=== PATIENT | female | born 1975 | race Two or more races ===

== ENCOUNTER 2016-10-10 13:02 | Inpatient (IN) | payer MEDICAID ==
[2016-10-10 13:16] VITALS: BP 144/74
[2016-10-10 13:47] LABS: % BASOPHILS 0.4 % (0.0-2.0); % EOSINOPHILS 2.2 % (0.0-5.0); % LYMPHOCYTES 32.8 % (20.0-50.0); % MONOCYTES 6.9 % (2.0-10.0); % NEUTROPHILS 57.7 % (40.0-80.0); HEMATOCRIT 36.1 % (35.0-45.0); HEMOGLOBIN 12.4 gm/dL (11.7-15.5); MEAN CELL VOLUME 80.9 fl (81-100); MEAN CORPUSCULAR HEMOGLOBIN 27.7 pg (27.0-31.0); MEAN CORPUSCULAR HGB CONC 34.3 pg (28.0-36.0); MEAN PLATELET VOLUME 7.7 fl; NEUTROPHILE ABSOLUTE 5.5 Th/cmm (1.8-8.0); PLATELET COUNT 298 Th/cmm (150-400); RED BLOOD COUNT 4.46 Mil/cmm (3.80-5.10); RED CELL DISTRIBUTION WIDTH 13.9 % (11.5-20.0); WHITE BLOOD COUNT 9.5 Th/cmm (4.8-10.8)
[2016-10-10] MEDS ORDERED: ceFAZolin 2 GM in Sodium Chloride 0.9% 100 ML IV ONE (13:48)
--- NOTE | 2016-10-10 13:54 | ED Physician Chart ---
Chief Complaint/HPI - Patient Information Date Seen:: 10/10/16 Time Seen:: 13:49 Chief Complaint:: infection left groin area x 4 days. History of Present Illness:: infection at left groin x 4 d. saw her pmd saturday and started on keflex but it looks worse today per pmd. no known fever. pt has DM. no weakness. no leg/foot pain or edema. no cp. no sob. no cough. Allergies:: Allergies Allergy/AdvReac Type Severity Reaction Status Date / Time No Known Allergies Allergy Verified 03/18/16 08:09 Vitals:: Vital Signs - 8 hr 10/10/16 10/10/16 13:16 13:21 Temp 98.0 F HR 85 RR 17 BP 144/74 144/74 O2 Sat % 96 Historian:: Patient Review of Systems - Review of Systems General/Constitutional: No fever, No chills, No weight loss (obese), No weakness , No diaphoresis, No edema, No loss of appetite Skin: Skin lesions, Rash, No bruising Head: No headache, No light-headedness Eyes: No loss of vision, No pain, No diplopia ENT: No earache, No nasal drainage, No sore throat, No tinnitus Neck: No neck pain, No swelling, No thyromegaly, No stiffness, No mass noted Cardio Vascular: No chest pain, No palpitations, No PND, No orthopnea, No edema Pulmonary: No SOB, No cough, No sputum, No wheezing GI: No nausea, No vomiting, No diarrhea, No pain, No melena, No hematochezia, No constipation, No hematemesis G/U: No dysuria, No frequency, No hematuria Musculoskeletal: No bone or joint pain, No back pain, No muscle pain Endocrine: No polyuria, No polydipsia Psychiatric: No prior psych history, No depression, No anxiety, No suicidal ideation Hematopoietic: No bruising, No lymphadenopathy Allergic/Immuno: No urticaria, No angioedema Neurological: No syncope, No focal symptoms, No weakness, No paresthesia, No headache, No seizure, No dizziness, No confusion, No vertigo Past Medical History - Past Medical History Past Medical History: DM, Dyslipidemia, Other (obese) Social History: Non Smoker, No Alcohol, No Drug Use Medication: Reviewed Family Medical History - Family Member Mother History Unknown: Yes Ethnicity: Living Status: Hx Family Diabetes: Yes Physical Exam - Physical Examination General/Constitutional: Awake, Well-developed, well-nourished, Alert, No distress, GCS 15, Non-toxic appearing, Ambulatory Other Gen/Cons comments:: obese fem in nad. alert. nontoxic. there is a red warm area of cellulitis 5x6cm sz at left lateral region of Pannus ...it has a central sinus and has apparently been draining...there is no obvious deep palpable abscess at this time however clearly has cellulitic process. Head: Atraumatic Eyes: Lids, conjuctiva normal, PERRL, EOMI Skin: Nl inspection, No rash, No skin lesions, No ecchymosis, Well hydrated, No lymphadenopathy ENMT: External ears, nose nl, Nasal exam nl, Lips, teeth, gums nl Neck: Nontender, Full ROM w/o pain, No JVD, No nuchal rigidity, No bruit, No mass, No stridor Respiratory: Nl effort/Exclusion, Clear to Auscultation, No Wheeze/Rhonchi/Rales Cardio Vascular: RRR, No murmur, gallop, rubs, NL S1 S2 GI: No tenderness/rebounding/guarding, No organomegaly, No hernia, Normal BS's, Nondistended, No mass/bruits, No McBurney tenderness : No CVA tenderness Extremities: No tenderness or effusion, Full ROM, normal strength in all extremities, No edema, Normal digits & nails Neuro/Psych: Alert/oriented, DTR's symmetric, Normal sensory exam, Normal motor strength, Judgement/insight normal, Mood normal, Normal gait, No focal deficits Misc: normal gait, Normal back, No paraspinal tenderness Labs/Radiology/EKG Results - Lab Results Results: Laboratory Tests 10/10/16 13:38 WBC 9.5 D RBC 4.46 Hgb 12.4 Hct 36.1 MCV 80.9 L MCH 27.7 MCHC Differential 34.3 RDW 13.9 Plt Count 298 MPV 7.7 Neutrophils % 57.7 Lymphocytes % 32.8 Monocytes % 6.9 Eosinophils % 2.2 Basophils % 0.4 ED Septic Shock - . Is Septic Shock (SBP<90, OR Lactate>4 mmol\L) present?: No - <6hrs of presentation: Vital Signs: Vital Signs - 8 hr 10/10/16 10/10/16 13:16 13:21 Temp 98.0 F HR 85 RR 17 BP 144/74 144/74 O2 Sat % 96 Reassessment (Disposition) - Reassessment Reassessment:: case dw Dr Gonzales...will admit for cellulitis in DM obese pt w worsening despite outpt abx pt has been stable in ed. vss. no fever. Reassessment Condition:: Unchanged - Diagnosis Diagnosis:: 1 cellulitis left panus region s/p outpt tx failure on po abx 2 type 2 DM 3 obese - Aftercare/Follow up Instructions Aftercare/Follow-Up Instructions:: Counseled pt regarding lab results/diagnosis & need follow up - Patient Disposition Admitted to:: Med/Surg Condition at Disposition:: Improved
[2016-10-10 14:03] LABS: ALB/GLOB RATIO 1.2 (1.0-1.8); ALKALINE PHOSPHATASE 73 U/L (34-104); ANION GAP 8.7 (7.0-16.0); BILIRUBIN,TOTAL 0.3 mg/dL (0.3-1.0); BUN - UREA NITROGEN 13 mg/dL (7-25); BUN/CREATININE RATIO 16.3; CALCIUM SERUM 9.1 mg/dL (8.6-10.3); CARBON DIOXIDE 26.1 mEq/L (21.0-31.0); CHLORIDE 106 mEq/L (98-107); CREATININE - SERUM 0.8 mg/dL (0.6-1.2); GLUCOSE 93 mg/dL (70-105); POTASSIUM SERUM 3.8 mEq/L (3.5-5.1); SGOT 22 U/L (13-39); SGPT/ALT 22 U/L (7-52); SODIUM SERUM 137 mEq/L (136-145)
[2016-10-10] MEDS ORDERED: Hydrocodone/APAP 5mg/325mg Tab PO PRN (17:37)
[2016-10-10] MEDS: INSULIN ASPART SLIDING SCALE 100 UNITS/ML UNIT SUBQ SCH ×2 (18:27→20:59)
[2016-10-10] MEDS: Hydrocodone/APAP 5mg/325mg Tab PO PRN (20:34)
--- NOTE | 2016-10-10 21:41 | Admit Criteria Form ---
Admit Criteria Forms - Admit Criteria Diagnosis: CELLULITIS Clinical Indications for Admission to Inpatient Care (Place 'X' for any and all applicable criteria): Admission is indicated for ANY ONE of the following(1)(2)(3)(4)(5): [ ]I. Limb-threatening infection [ ]II. High-risk comorbid condition as indicated by ANY ONE of the following: [ ]a) Uncontrolled diabetes (eg, HbA1c greater than 10% (0.1)) [ ]b) Cirrhosis [ ]c) Neutropenia [ ]d) Asplenia [ ]e) Immunosuppression [ ]f) Symptomatic heart failure [ ]III. Failure of outpatient therapy as indicated by ALL of the following: [ ]a) Progression or no improvement after adequate trial (minimum of 48 hours, with longer period for stable lower extremity infection) [ ]b) Adequate antibiotic regimen as indicated by use of ANY ONE of the following: [ ]i) First-generation cephalosporin (e.g., cephalexin) [ ]ii) Antistaphylococcal penicillin (e.g., dicloxacillin) [ ]iii) Penicillin-allergic patient regimen (clindamycin, extended-spectrum fluoroquinolone, or doxycycline) [ ]iv) Resistant organism (eg, methicillin-resistant Staphylococcus aureus) regimen (6) [ ]c) Outpatient intravenous therapy regimen is not appropriate due to ANY ONE of the following. (7)(8)(9)(10): [ ]i) It was tried and was not successful (eg, progression of infection). [ ]ii) It is not available or cannot be arranged in a clinically appropriate time frame (e.g., the next day). [ ]iii) Clinical presentation (eg, acuity of infection, rapidity of progression, confirmed or suspected bacteremia) is judged to require ALL of the following: [ ]1) Immediate initiation of intravenous therapy ( eg, cannot wait for next day) [ ]2) Intensity of patient monitoring and observation (eg, vital sign measurement, checks for infection progression) that cannot be provided at other than inpatient level of care [ ]IV. Mental status changes [ ]V. Bacteremia [ ]. Hemodynamic instability [ ]VII. Suspected necrotizing soft tissue infection (e.g., gas in tissue)(11)( 12) [ ]VIII. Orbital infection (13)(14) [ ]IX. Associated surgical procedure (e.g., abscess drainage, debridement) not amenable to outpatient, emergency department, or observation care [ ]X. Cutaneous gangrene [ ]XI. High fever (temperature greater than 39.5 degrees C (103.1 degrees F) (oral)) not responsive to outpatient, emergency department, or observation care therapy [X]XIII. Inpatient admission required rather than observation care (Also use Cellulitis: Observation Care as appropriate) because of ANY ONE of the following : [ ]a) Periorbital or perineal infection that is severe or worsening [ ]b) Severe pain requiring acute inpatient management [ ]c) IV fluid to replace significant ongoing (e.g., for over 24 hours) losses (greater than 3L/m2 per day) [ ]d) Compartment syndrome monitoring (17) [ ]e) Strict or protective (eg, laminar flow) isolation [ ]f) Urgent debridement or skin grafting [ ]g) Bone or joint debridement [ ]h) Immediate inpatient surgery [X]i) Other condition, treatment or monitoring requiring inpatient admission Extended stay beyond goal length of stay may be needed for (1)(18): [ ]a) Necrotizing soft tissue infection or fasciitis [ ]b) Gram-negative infection [ ]c) Methicillin-resistant Staphylococcal aureus (MRSA) infection [ ]d) Peripheral venous insufficiency with cellulitis [ ]e) Extensive edema [ ]f) Sepsis or continued Hemodynamic instability [ ]g) Continued high fever or mental status change [ ]h) Bacteremia [ ]i) Active serious comorbid conditions ( eg, heart failure, renal insufficiency) The original [facility] [employer] content created by [employer] [employer] has been revised. The portions of the content which have been revised are identified through the use of italic text or in bold, and [facility] has neither reviewed nor approved the modified material. All other unmodified content is copyright [employer] [employer] Please see references footnoted in the original [employer] [facility] edition 2016 Admit Criteria Met?: Yes
[2016-10-10] MEDS: Vancomycin HCl 1.75 GM in Sodium Chloride 0.9% 500 ML IV SCH (22:14)
--- NOTE | 2016-10-10 23:59 | Consultation ---
Consult Note - Consult Note Service Date: 10/10/16 Referring Physician: Glenn Gonzales Consult Note: PHYSICIAN Consultation Note: Date of Admission: 10/10/16 Purpose of Consultation: Chief Complaint:Patient SHLOMO ALVARADO was admitted to location Medical/ Surgical Unit I with CELLULITIS. History of Present Illness: Patient is 41 Y morbidly obese female admitted to the hospital for tender swelling and redness of the lower abdomen with superficial ulceration. Patient denies any fever, chills. On initial evaluation, her temperature was 98 degree F and WBC count was 9,500. Zosyn was started and had added IV vancomycin. Past Medical History: DM2, Hyperlipidemia, morbid obesity. Allergies Allergy/AdvReac Type Severity Reaction Status Date / Time No Known Allergies Allergy Verified 03/18/16 08:09 Vital Signs Temp 98.6 F 10/10/16 20:00 Pulse 83 10/10/16 20:00 Resp 18 10/10/16 20:00 BP 128/68 10/10/16 20:00 Pulse Ox 94 10/10/16 20:00 Intake & Output 10/10/16 10/10/16 10/11/16 06:59 18:59 06:59 Intake Total 500 Balance 500 Intake: Oral 500 Other: # Voids 1 Stool Characteristics Soft Laboratory Results - last 24 hr 10/10/16 16:50 POC Glucose 105 Home Medication Medication Instructions Recorded Type Ranitidine HCl [Ranitidine*] 150 mg PO Q12H #30 tab 03/18/16 Rx Current Medications Generic Name Dose Route Start Last Admin Trade Name Freq PRN Reason Stop Dose Admin Acetaminophen 650 mg 10/10/16 17:35 Tylenol PO 12/09/16 17:34 Q6H PRN Pain (Mild) Acetaminophen/Hydrocodone Bitart 1 tab 10/10/16 17:38 10/10/16 20:34 [place] 5mg/325mg PO 12/09/16 17:37 1 tab Q6H PRN Administration Pain (Moderate) Famotidine 20 mg 10/10/16 21:00 10/10/16 20:35 Pepcid PO 12/09/16 20:59 20 mg Q12HR LUTHER Administration Piperacillin Sod/Tazobactam 100 mls @ 100 mls/hr 10/10/16 21:00 10/10/16 20: 59 Sod 4.5 gm/ Sodium Chloride IV 12/09/16 20:59 100 mls/hr Q8HR LUTHER Administration Vancomycin HCl 1.75 gm/ Sodium 500 mls @ 250 mls/hr 10/10/16 20:00 10/10/16 22:14 Chloride IV 12/09/16 19:59 250 mls/hr Q12H LUTHER Administration Insulin Aspart 0 units 10/10/16 16:32 10/10/16 20:59 Novolog Insulin Sliding Scale SUBQ 12/09/16 16:31 Not Given ACHS LUTHER Protocol Miscellaneous 1 ea 10/10/16 18:25 Vancomycin Iv Per Pharmacy [facility] 12/09/16 18:24 PRN PRN PROTOCOL Review of Systems: A 12 point ROS was reviewed with the pertinent positive and negatives noted in the HPI. Social History Lives at home Smoking Status Never smoker Drug Use No Alcohol Use No Family Medical History Nonsignificant. Physical Exam: General: Obese, not in any acute distress. HEENT: EOMI Bilaterally, PERRLA Bilaterally, Head is normocephalic, atraumatic on inspection. Cardio: +S1/S2 Auscultated, RRR, no murmurs/rubs/gallops noted Respiratory: Clear to Auscultate Bilaterally Abdominal: Soft, Nondistended, Nontender to palpation x 4 quadrants. Patient is very obese and had developed tender erythema of the fatty abdominal fold of the LLQ with superficial ulceration. Extremities: No Edema noted in the lower extremities Neurological: Alert and Oriented x3, No Acute Distress. Cranial Nerves II-XII intact bilaterally, Gait Steady, No Focal Deficits noted. Assessment/Plan: 1. cellulitis of the abdominal wall of LLQ. panniculitis. 2. morbid obesity. 3. suspect EMELI. 4. Tinea cruris. Recommendations: Start Vando IV and zosyn. may apply lotrisone cream to the abdominal fold, she may have tinea cruris. may anticipate dc in next 2 to 3 days depending on the clinical course. Thank you Dr Gonazles for involving me in taking care of Ms Alvarado. Kameron Ayers Devesh N., M.D. [id number]
[2016-10-11] MEDS: Hydrocodone/APAP 5mg/325mg Tab PO PRN ×2 (03:09→13:32)
[2016-10-11 05:32] LABS: % BASOPHILS 0.5 % (0.0-2.0); % EOSINOPHILS 2.5 % (0.0-5.0); % LYMPHOCYTES 37.1 % (20.0-50.0); % MONOCYTES 7.3 % (2.0-10.0); % NEUTROPHILS 52.6 % (40.0-80.0); HEMATOCRIT 34.2 % (35.0-45.0); HEMOGLOBIN 11.9 gm/dL (11.7-15.5); MEAN CELL VOLUME 80.7 fl (81-100); MEAN CORPUSCULAR HGB CONC 34.7 pg (28.0-36.0); MEAN PLATELET VOLUME 7.5 fl; PLATELET COUNT 287 Th/cmm (150-400); RED BLOOD COUNT 4.23 Mil/cmm (3.80-5.10); RED CELL DISTRIBUTION WIDTH 13.9 % (11.5-20.0)
[2016-10-11 05:42] LABS: WHITE BLOOD COUNT 7.5 Th/cmm (4.8-10.8)
[2016-10-11 05:43] LABS: BUN - UREA NITROGEN 15 mg/dL (7-25); CARBON DIOXIDE 25.8 mEq/L (21.0-31.0); CHLORIDE 105 mEq/L (98-107); CREATININE - SERUM 0.5 mg/dL (0.6-1.2); GLUCOSE 118 mg/dL (70-105); POTASSIUM SERUM 3.8 mEq/L (3.5-5.1); SODIUM SERUM 136 mEq/L (136-145)
[2016-10-11] MEDS: INSULIN ASPART SLIDING SCALE 100 UNITS/ML UNIT SUBQ SCH ×4 (06:50→21:05)
[2016-10-11] MEDS: Vancomycin HCl 1.75 GM in Sodium Chloride 0.9% 500 ML IV SCH ×2 (08:40→21:05)
--- NOTE | 2016-10-11 15:10 | Infectious Disease Prog Note ---
Infectious Disease Subjective - Review of Systems Service Date: 10/11/16 Subjective: Nonew change, there is no fever. Infectious Disease Objective - Results Result Diagrams: 10/11/16 05:15 10/11/16 05:15 Recent Labs: Laboratory Last Values WBC 7.5 Th/cmm (4.8-10.8) D 10/11/16 05:15 RBC 4.23 Mil/cmm (3.80-5.10) 10/11/16 05:15 Hgb 11.9 gm/dL (11.7-15.5) 10/11/16 05:15 Hct 34.2 % (35.0-45.0) L 10/11/16 05:15 MCV 80.7 fl (81-100) L 10/11/16 05:15 MCH 28.0 pg (27.0-31.0) 10/11/16 05:15 MCHC Differential 34.7 pg (28.0-36.0) 10/11/16 05:15 RDW 13.9 % (11.5-20.0) 10/11/16 05:15 Plt Count 287 Th/cmm (150-400) 10/11/16 05:15 MPV 7.5 fl 10/11/16 05:15 Neutrophils % 52.6 % (40.0-80.0) 10/11/16 05:15 Lymphocytes % 37.1 % (20.0-50.0) 10/11/16 05:15 Monocytes % 7.3 % (2.0-10.0) 10/11/16 05:15 Eosinophils % 2.5 % (0.0-5.0) 10/11/16 05:15 Basophils % 0.5 % (0.0-2.0) 10/11/16 05:15 Sodium 136 mEq/L (136-145) 10/11/16 05:15 Potassium 3.8 mEq/L (3.5-5.1) 10/11/16 05:15 Chloride 105 mEq/L (98-107) 10/11/16 05:15 Carbon Dioxide 25.8 mEq/L (21.0-31.0) 10/11/16 05:15 Anion Gap 9.0 (7.0-16.0) 10/11/16 05:15 BUN 15 mg/dL (7-25) 10/11/16 05:15 Creatinine 0.5 mg/dL (0.6-1.2) L 10/11/16 05:15 Est GFR ( Amer) > 60.0 ml/min (>90) 10/11/16 05:15 Est GFR (Non-Af Amer) > 60.0 ml/min 10/11/16 05:15 BUN/Creatinine Ratio 30.0 10/11/16 05:15 Glucose 118 mg/dL (70-105) H 10/11/16 05:15 POC Glucose 136 MG/DL (70 - 105) H 10/11/16 11:26 Hemoglobin A1c % 6.3 % (4.0-6.0) H 10/10/16 14:10 Whole Bld Lactic Acid 0.97 mmol/L (0.60-1.99) 10/10/16 14:10 Calcium 9.0 mg/dL (8.6-10.3) 10/11/16 05:15 Total Bilirubin 0.3 mg/dL (0.3-1.0) 10/10/16 13:38 AST 22 U/L (13-39) 10/10/16 13:38 ALT 22 U/L (7-52) 10/10/16 13:38 Alkaline Phosphatase 73 U/L (34-104) 10/10/16 13:38 Total Protein 7.2 gm/dL (6.0-8.3) 10/10/16 13:38 Albumin 3.9 gm/dL (3.7-5.3) 10/10/16 13:38 Globulin 3.3 gm/dL 10/10/16 13:38 Albumin/Globulin Ratio 1.2 (1.0-1.8) 10/10/16 13:38 - Physical Exam Vitals and I&O: Vital Signs Temp 98.4 F 10/11/16 08:00 Pulse 73 10/11/16 08:00 Resp 18 10/11/16 08:00 BP 139/69 10/11/16 08:00 Pulse Ox 94 10/11/16 08:00 Intake & Output 10/10/16 10/11/16 10/11/16 18:59 06:59 18:59 Intake Total 500 700 200 Balance 500 700 200 Intake: Intake, IV Amount 700 Piperacillin Sodium/ 200 Tazobact 4.5 gm In Sodium Chloride 0.9% 100 ml @ 100 mls/hr IV Q8HR [facility] Rx #:[id number] Vancomycin HCl 1.75 gm In 500 Sodium Chloride 0.9% 500 ml @ 250 mls/hr IV Q12H [facility] Rx#:[id number] Oral 500 200 Other: # Voids 1 Stool Characteristics Soft Active Medications: Current Medications Acetaminophen (Tylenol) 650 mg PO Q6H PRN PRN Reason: Pain (Mild) Stop: 12/09/16 17:34 Last Admin: 10/11/16 06:57 Dose: 650 mg Acetaminophen/Hydrocodone Bitart ([place] 5mg/325mg) 1 tab PO Q6H PRN PRN Reason: Pain (Moderate) Stop: 12/09/16 17:37 Last Admin: 10/11/16 13:32 Dose: 1 tab Betamethasone/Clotrimazole (Lotrisone Cream) 1 appl TP BID [facility] Stop: 12/10/16 08:59 Famotidine (Pepcid) 20 mg PO Q12HR [facility] Stop: 12/09/16 20:59 Last Admin: 10/11/16 09:07 Dose: 20 mg Piperacillin Sod/Tazobactam (Sod 4.5 gm/ Sodium Chloride) 100 mls @ 100 mls/hr IV Q8HR [facility] Stop: 12/09/16 20:59 Last Admin: 10/11/16 12:38 Dose: 100 mls/hr Vancomycin HCl 1.75 gm/ Sodium (Chloride) 500 mls @ 250 mls/hr IV Q12H [facility] Stop: 12/09/16 19:59 Last Admin: 10/11/16 08:40 Dose: 250 mls/hr Insulin Aspart (Novolog Insulin Sliding Scale) 0 units SUBQ ACHS [facility] PRN Reason: Protocol Stop: 12/09/16 16:31 Last Admin: 10/11/16 11:42 Dose: Not Given Miscellaneous (Vancomycin Iv Per Pharmacy) 1 ea [facility] PRN PRN PRN Reason: PROTOCOL Stop: 12/09/16 18:24 General: no acute distress, other (obese) HEENT: atraumatic, normocephalic, PERRLA Neck: supple Cardiovascular: S1S2, regular Lungs: clear to auscultation bilaterally, clear to percussion Abdomen: soft, obese, other (erythema in LLQ, inlower abdomina fold.), no tender Extremities: no cyanosis, no clubbing, no edema Neurological: awake, alert, oriented Infectious Disease Assmt/Plan - Problem List Patient Problems: All Active Problems Bronchitis (Acute) J40 - Assessment Assessment: 1. cellulitis of the abdominal wall of LLQ. panniculitis. 2. morbid obesity. 3. suspect EMELI. 4. Tinea cruris. - Plan Plan: Recommendations: Conitnue Vando IV and zosyn. may apply lotrisone cream to the abdominal fold, she may have tinea cruris. may anticipate dc in next 1 or 2 days. on oral antibiotics. HH for wound care. Nutritional Asmnt/Malnutr-PDOC - Dietary Evaluation Malnutrition Findings (Please click <Entered> for more info): Nutritional Asmnt/Malnutrition Start: 10/11/16 12: 12 Text: Status: Complete Freq: Document 10/11/16 12:12 GSUN (Rec: 10/11/16 12:28 GSUN [email or web address]) Nutritional Asmnt/Malnutrition Patient General Information Nutritional Screening Consult Diagnosis ER: cellulitis left panus region, DM2 Pertinent Medical Hx/Surgical Hx ER: DM, dyslipidemia, obese Subjective Information [address] consult for active wound cellulitis. Pt was very pleasat, sitting upright in chair next to bed. [place] speaking, son translated, who also appeared overweight/obese. Pt appeared either unaware or in denial of elevated blood glucose/DM. UBW 330lb. Pt stated good appetite, denied any nutritional concerns at this time. Current Diet Order/ Nutrition Support [address] Patient / S.O Can Pertinent Medications Pepcid, Novolog, Vancomycin Pertinent Labs 10/10: A1c 6.3, glucose 93 10/11: glucose 118H Nutritional Hx/Data Height 1.57 m Height (Calculated Centimeters) 157.5 Current Weight (lbs) 145.15 kg Weight (Calculated Kilograms) 145.1 Weight (Calculated Grams) 383483.6 Usual body Weight (lbs) 330 [place] Body Weight 110 Recent Weight Change No Weight Status Morbidly Obese GI Symptoms Food Allergies No Skin Integrity/Comment: Carl 20. Panus region cellulitis. Current %PO Good (75-100%) Estimated Nutritional Goals BEE in Kcals: Adj wt of IBW Calories/Kcals/Kg AdjBW 162.5/73.9kg Kcals Calculated 1848-2217kcal (25-30kcal/kg) Protein: Adj wt of IBW Protein Calculated 59g (0.8g/kg) Fluid: ml 1848-2217ml (1ml/kcal) Nutritional Problem 1. Problem Problem Altered nutrition related laboratory values related to Etiology DM aeb Signs/Symptoms: A1c 6.3, ER notes Malnutrition Related to Morbid Obesity Malnutrition related to morbid obesity BMI> or equal to 40 Query Text:(Any 1 Criteria met) Malnutrition related to morbid obesity Yes Intervention/Recommendation Recommendations by RD Dietary Education by RD1 Increase Calorie Intake Decrease Calorie Intake Comments 1. Recommend [id number], current diet order [id number] is not adequate to meet 100% of estimated nutritional needs, calculated using adjusted body weight. 2. RD provided brief nutrition edu on DM. Pt requires more edu. Pt expressed udnerstanding. 3. RD discussed ideal body weight and complications with obesity. Pt expressed udnerstanding. Expected Outcomes/Goals Expected Outcomes/Goals 1. PO intake to meet at least 75% of estimated nutritional needs. Physician Parameters for PEM Serum Albumin (g/dl) 3.5 - 5.0 (Normal)
[2016-10-11] MEDS: Betamethasone/Clotrimazole Cream 15 gm Tube TP SCH (17:35)
[2016-10-11] MEDS ORDERED: Maalox 30 mL Cup PO PRN (22:25)
[2016-10-12] MEDS: Hydrocodone/APAP 5mg/325mg Tab PO PRN (03:56)
[2016-10-12] MEDS: INSULIN ASPART SLIDING SCALE 100 UNITS/ML UNIT SUBQ SCH ×2 (06:42→11:39)
[2016-10-12] MEDS: Vancomycin HCl 1.75 GM in Sodium Chloride 0.9% 500 ML IV SCH (08:15)
[2016-10-12] MEDS: Betamethasone/Clotrimazole Cream 15 gm Tube TP SCH (08:48)
--- NOTE | 2016-10-12 10:12 | Infectious Disease Prog Note ---
Infectious Disease Subjective - Review of Systems Service Date: 10/12/16 Subjective: Nonew change, there is no fever. Infectious Disease Objective - Results Result Diagrams: 10/11/16 05:15 10/11/16 05:15 Recent Labs: Laboratory Last Values WBC 7.5 Th/cmm (4.8-10.8) D 10/11/16 05:15 RBC 4.23 Mil/cmm (3.80-5.10) 10/11/16 05:15 Hgb 11.9 gm/dL (11.7-15.5) 10/11/16 05:15 Hct 34.2 % (35.0-45.0) L 10/11/16 05:15 MCV 80.7 fl (81-100) L 10/11/16 05:15 MCH 28.0 pg (27.0-31.0) 10/11/16 05:15 MCHC Differential 34.7 pg (28.0-36.0) 10/11/16 05:15 RDW 13.9 % (11.5-20.0) 10/11/16 05:15 Plt Count 287 Th/cmm (150-400) 10/11/16 05:15 MPV 7.5 fl 10/11/16 05:15 Neutrophils % 52.6 % (40.0-80.0) 10/11/16 05:15 Lymphocytes % 37.1 % (20.0-50.0) 10/11/16 05:15 Monocytes % 7.3 % (2.0-10.0) 10/11/16 05:15 Eosinophils % 2.5 % (0.0-5.0) 10/11/16 05:15 Basophils % 0.5 % (0.0-2.0) 10/11/16 05:15 Sodium 136 mEq/L (136-145) 10/11/16 05:15 Potassium 3.8 mEq/L (3.5-5.1) 10/11/16 05:15 Chloride 105 mEq/L (98-107) 10/11/16 05:15 Carbon Dioxide 25.8 mEq/L (21.0-31.0) 10/11/16 05:15 Anion Gap 9.0 (7.0-16.0) 10/11/16 05:15 BUN 15 mg/dL (7-25) 10/11/16 05:15 Creatinine 0.5 mg/dL (0.6-1.2) L 10/11/16 05:15 Est GFR ( Amer) > 60.0 ml/min (>90) 10/11/16 05:15 Est GFR (Non-Af Amer) > 60.0 ml/min 10/11/16 05:15 BUN/Creatinine Ratio 30.0 10/11/16 05:15 Glucose 118 mg/dL (70-105) H 10/11/16 05:15 POC Glucose 126 MG/DL (70 - 105) H 10/12/16 06:35 Hemoglobin A1c % 6.3 % (4.0-6.0) H 10/10/16 14:10 Whole Bld Lactic Acid 0.97 mmol/L (0.60-1.99) 10/10/16 14:10 Calcium 9.0 mg/dL (8.6-10.3) 10/11/16 05:15 Total Bilirubin 0.3 mg/dL (0.3-1.0) 10/10/16 13:38 AST 22 U/L (13-39) 10/10/16 13:38 ALT 22 U/L (7-52) 10/10/16 13:38 Alkaline Phosphatase 73 U/L (34-104) 10/10/16 13:38 Total Protein 7.2 gm/dL (6.0-8.3) 10/10/16 13:38 Albumin 3.9 gm/dL (3.7-5.3) 10/10/16 13:38 Globulin 3.3 gm/dL 10/10/16 13:38 Albumin/Globulin Ratio 1.2 (1.0-1.8) 10/10/16 13:38 - Physical Exam Vitals and I&O: Vital Signs Temp 97.7 F 10/12/16 04:00 Pulse 77 10/12/16 04:00 Resp 20 10/12/16 04:00 BP 133/95 10/12/16 04:00 Pulse Ox 95 10/12/16 04:00 Intake & Output 10/11/16 10/12/16 10/12/16 18:59 06:59 18:59 Intake Total 1160 840 Balance 1160 840 Intake: Intake, IV Amount 600 600 Piperacillin Sodium/ 100 100 Tazobact 4.5 gm In Sodium Chloride 0.9% 100 ml @ 100 mls/hr IV Q8HR [facility] Rx #:[id number] Vancomycin HCl 1.75 gm In 500 500 Sodium Chloride 0.9% 500 ml @ 250 mls/hr IV Q12H [facility] Rx#:[id number] Oral 560 240 Other: # Voids 4 1 # Bowel Movements 1 Stool Characteristics Liquid Brown Active Medications: Current Medications Acetaminophen (Tylenol) 650 mg PO Q6H PRN PRN Reason: Pain (Mild) Stop: 12/09/16 17:34 Last Admin: 10/11/16 21:56 Dose: 650 mg Acetaminophen/Hydrocodone Bitart (Sturgeon 5mg/325mg) 1 tab PO Q6H PRN PRN Reason: Pain (Moderate) Stop: 12/09/16 17:37 Last Admin: 10/12/16 03:56 Dose: 1 tab Al Hydrox/Mg Hydrox/Simethicone (Maalox) 30 ml PO TID PRN PRN Reason: GAS PAIN Stop: 12/10/16 22:24 Betamethasone/Clotrimazole (Lotrisone Cream) 1 appl TP BID [facility] Stop: 12/10/16 08:59 Last Admin: 10/12/16 08:48 Dose: 1 appl Famotidine (Pepcid) 20 mg PO Q12HR [facility] Stop: 12/09/16 20:59 Last Admin: 10/12/16 08:48 Dose: 20 mg Piperacillin Sod/Tazobactam (Sod 4.5 gm/ Sodium Chloride) 100 mls @ 100 mls/hr IV Q8HR [facility] Stop: 12/09/16 20:59 Last Admin: 10/12/16 06:03 Dose: 100 mls/hr Vancomycin HCl 1.75 gm/ Sodium (Chloride) 500 mls @ 250 mls/hr IV Q12H [facility] Stop: 12/09/16 19:59 Last Admin: 10/12/16 08:15 Dose: 250 mls/hr Insulin Aspart (Novolog Insulin Sliding Scale) 0 units SUBQ ACHS [facility] PRN Reason: Protocol Stop: 12/09/16 16:31 Last Admin: 10/12/16 06:42 Dose: Not Given Miscellaneous (Vancomycin Iv Per Pharmacy) 1 ea MC PRN PRN PRN Reason: PROTOCOL Stop: 12/09/16 18:24 General: no acute distress, other (Obese.) HEENT: atraumatic, normocephalic, PERRLA, EOMI Neck: supple, no thyromegaly, no lymphadenopathy Cardiovascular: S1S2, regular Lungs: clear to auscultation bilaterally, clear to percussion Abdomen: soft, other (wound and erythema in the LLQ Improving.), no tender, no distended Extremities: no cyanosis, no clubbing, no edema Neurological: awake, alert, oriented Skin: intact Infectious Disease Assmt/Plan - Problem List Patient Problems: All Active Problems Bronchitis (Acute) J40 - Assessment Assessment: 1. cellulitis of the abdominal wall of LLQ. panniculitis. Improving. 2. morbid obesity. 3. suspect EMELI. 4. Tinea cruris. - Plan Plan: Recommendations: Continue Vando IV and zosyn. may apply lotrisone cream to the abdominal fold, she may have tinea cruris. DC on oral antibiotics, Bactrim ds and Augmentin. ?HH for wound care. Nutritional Asmnt/Malnutr-PDOC - Dietary Evaluation Malnutrition Findings (Please click <Entered> for more info): Nutritional Asmnt/Malnutrition Start: 10/11/16 12: 12 Text: Status: Complete Freq: Document 10/11/16 12:12 GSUN (Rec: 10/11/16 12:28 GSUN [email or web address]) Nutritional Asmnt/Malnutrition Patient General Information Nutritional Screening Consult Diagnosis ER: cellulitis left panus region, DM2 Pertinent Medical Hx/Surgical Hx ER: DM, dyslipidemia, obese Subjective Information [address] consult for active wound cellulitis. Pt was very pleasat, sitting upright in chair next to bed. Faroese speaking, son translated, who also appeared overweight/obese. Pt appeared either unaware or in denial of elevated blood glucose/DM. UBW 330lb. Pt stated good appetite, denied any nutritional concerns at this time. Current Diet Order/ Nutrition Support [id number] Patient / S.O Can Pertinent Medications Pepcid, Novolog, Vancomycin Pertinent Labs 10/10: A1c 6.3, glucose 93 10/11: glucose 118H Nutritional Hx/Data Height 1.57 m Height (Calculated Centimeters) 157.5 Current Weight (lbs) 145.15 kg Weight (Calculated Kilograms) 145.1 Weight (Calculated Grams) 321979.6 Usual body Weight (lbs) 330 [place] Body Weight 110 Recent Weight Change No Weight Status Morbidly Obese GI Symptoms Food Allergies No Skin Integrity/Comment: Carl 20. Panus region cellulitis. Current %PO Good (75-100%) Estimated Nutritional Goals BEE in Kcals: Adj wt of IBW Calories/Kcals/Kg AdjBW 162.5/73.9kg Kcals Calculated 1848-2217kcal (25-30kcal/kg) Protein: Adj wt of IBW Protein Calculated 59g (0.8g/kg) Fluid: ml 1848-2217ml (1ml/kcal) Nutritional Problem 1. Problem Problem Altered nutrition related laboratory values related to Etiology DM aeb Signs/Symptoms: A1c 6.3, ER notes Malnutrition Related to Morbid Obesity Malnutrition related to morbid obesity BMI> or equal to 40 Query Text:(Any 1 Criteria met) Malnutrition related to morbid obesity Yes Intervention/Recommendation Recommendations by RD Dietary Education by RD1 Increase Calorie Intake Decrease Calorie Intake Comments 1. Recommend [id number], current diet order [id number] is not adequate to meet 100% of estimated nutritional needs, calculated using adjusted body weight. 2. RD provided brief nutrition edu on DM. Pt requires more edu. Pt expressed udnerstanding. 3. RD discussed ideal body weight and complications with obesity. Pt expressed udnerstanding. Expected Outcomes/Goals Expected Outcomes/Goals 1. PO intake to meet at least 75% of estimated nutritional needs. Physician Parameters for PEM Serum Albumin (g/dl) 3.5 - 5.0 (Normal)
--- NOTE | 2016-10-12 18:19 | General Progress Note ---
Subjective - Review of Systems Service Date: 10/12/16 Subjective: Patient doing better family was at the bedside afebrile denied any complaints Luxembourger interpretor was used for communication Objective - Results Result Diagrams: 10/11/16 05:15 10/11/16 05:15 Recent Labs: Laboratory Last Values WBC 7.5 Th/cmm (4.8-10.8) D 10/11/16 05:15 RBC 4.23 Mil/cmm (3.80-5.10) 10/11/16 05:15 Hgb 11.9 gm/dL (11.7-15.5) 10/11/16 05:15 Hct 34.2 % (35.0-45.0) L 10/11/16 05:15 MCV 80.7 fl (81-100) L 10/11/16 05:15 MCH 28.0 pg (27.0-31.0) 10/11/16 05:15 MCHC Differential 34.7 pg (28.0-36.0) 10/11/16 05:15 RDW 13.9 % (11.5-20.0) 10/11/16 05:15 Plt Count 287 Th/cmm (150-400) 10/11/16 05:15 MPV 7.5 fl 10/11/16 05:15 Neutrophils % 52.6 % (40.0-80.0) 10/11/16 05:15 Lymphocytes % 37.1 % (20.0-50.0) 10/11/16 05:15 Monocytes % 7.3 % (2.0-10.0) 10/11/16 05:15 Eosinophils % 2.5 % (0.0-5.0) 10/11/16 05:15 Basophils % 0.5 % (0.0-2.0) 10/11/16 05:15 Sodium 136 mEq/L (136-145) 10/11/16 05:15 Potassium 3.8 mEq/L (3.5-5.1) 10/11/16 05:15 Chloride 105 mEq/L (98-107) 10/11/16 05:15 Carbon Dioxide 25.8 mEq/L (21.0-31.0) 10/11/16 05:15 Anion Gap 9.0 (7.0-16.0) 10/11/16 05:15 BUN 15 mg/dL (7-25) 10/11/16 05:15 Creatinine 0.5 mg/dL (0.6-1.2) L 10/11/16 05:15 Est GFR ( Amer) > 60.0 ml/min (>90) 10/11/16 05:15 Est GFR (Non-Af Amer) > 60.0 ml/min 10/11/16 05:15 BUN/Creatinine Ratio 30.0 10/11/16 05:15 Glucose 118 mg/dL (70-105) H 10/11/16 05:15 POC Glucose 133 MG/DL (70 - 105) H 10/12/16 11:22 Hemoglobin A1c % 6.3 % (4.0-6.0) H 10/10/16 14:10 Whole Bld Lactic Acid 0.97 mmol/L (0.60-1.99) 10/10/16 14:10 Calcium 9.0 mg/dL (8.6-10.3) 10/11/16 05:15 Total Bilirubin 0.3 mg/dL (0.3-1.0) 10/10/16 13:38 AST 22 U/L (13-39) 10/10/16 13:38 ALT 22 U/L (7-52) 10/10/16 13:38 Alkaline Phosphatase 73 U/L (34-104) 10/10/16 13:38 Total Protein 7.2 gm/dL (6.0-8.3) 10/10/16 13:38 Albumin 3.9 gm/dL (3.7-5.3) 10/10/16 13:38 Globulin 3.3 gm/dL 10/10/16 13:38 Albumin/Globulin Ratio 1.2 (1.0-1.8) 10/10/16 13:38 Vancomycin Trough 18.5 ug/mL (10-20) 10/12/16 09:40 - Physical Exam Vitals and I&O: Vital Signs Temp 98.4 F 10/12/16 12:29 Pulse 67 10/12/16 12:29 Resp 18 10/12/16 12:29 BP 119/59 10/12/16 12:29 Pulse Ox 95 10/12/16 08:00 Intake & Output 10/11/16 10/12/16 10/12/16 18:59 06:59 18:59 Intake Total 1160 840 340 Balance 1160 840 340 Intake: Intake, IV Amount 600 600 100 Piperacillin Sodium/ 100 100 100 Tazobact 4.5 gm In Sodium Chloride 0.9% 100 ml @ 100 mls/hr IV Q8HR [facility] Rx #:[id number] Vancomycin HCl 1.75 gm In 500 500 Sodium Chloride 0.9% 500 ml @ 250 mls/hr IV Q12H [facility] Rx#:[id number] Oral 560 240 240 Other: # Voids 4 1 1 # Bowel Movements 1 1 Stool Characteristics Liquid Brown Skin: Other (left abd wound clean improving redness) Assessment/Plan - Problem List Patient Problems: All Active Problems Bronchitis (Acute) J40 - Assessment Assessment: Cellulitis Obesity DM II - Plan Plan: ID cleared patient for home discharge with oral antibiotics DC plan discussed with patient F/u with PMD in one week advised Nutritional Asmnt/Malnutr-PDOC - Dietary Evaluation Malnutrition Findings (Please click <Entered> for more info): Nutritional Asmnt/Malnutrition Start: 10/11/16 12: 12 Text: Status: Complete Freq: Document 10/11/16 12:12 GSUN (Rec: 10/11/16 12:28 GSUN [email or web address]) Nutritional Asmnt/Malnutrition Patient General Information Nutritional Screening Consult Diagnosis ER: cellulitis left panus region, DM2 Pertinent Medical Hx/Surgical Hx ER: DM, dyslipidemia, obese Subjective Information [address] consult for active wound cellulitis. Pt was very pleasat, sitting upright in chair next to bed. Luxembourger speaking, son translated, who also appeared overweight/obese. Pt appeared either unaware or in denial of elevated blood glucose/DM. UBW 330lb. Pt stated good appetite, denied any nutritional concerns at this time. Current Diet Order/ Nutrition Support [id number] Patient / S.O Can Pertinent Medications Pepcid, Novolog, Vancomycin Pertinent Labs 10/10: A1c 6.3, glucose 93 10/11: glucose 118H Nutritional Hx/Data Height 1.57 m Height (Calculated Centimeters) 157.5 Current Weight (lbs) 145.15 kg Weight (Calculated Kilograms) 145.1 Weight (Calculated Grams) 778683.6 Usual body Weight (lbs) 330 [place] Body Weight 110 Recent Weight Change No Weight Status Morbidly Obese GI Symptoms Food Allergies No Skin Integrity/Comment: Carl 20. Panus region cellulitis. Current %PO Good (75-100%) Estimated Nutritional Goals BEE in Kcals: Adj wt of IBW Calories/Kcals/Kg AdjBW 162.5/73.9kg Kcals Calculated 1848-2217kcal (25-30kcal/kg) Protein: Adj wt of IBW Protein Calculated 59g (0.8g/kg) Fluid: ml 1848-2217ml (1ml/kcal) Nutritional Problem 1. Problem Problem Altered nutrition related laboratory values related to Etiology DM aeb Signs/Symptoms: A1c 6.3, ER notes Malnutrition Related to Morbid Obesity Malnutrition related to morbid obesity BMI> or equal to 40 Query Text:(Any 1 Criteria met) Malnutrition related to morbid obesity Yes Intervention/Recommendation Recommendations by RD Dietary Education by RD1 Increase Calorie Intake Decrease Calorie Intake Comments 1. Recommend [id number], current diet order [id number] is not adequate to meet 100% of estimated nutritional needs, calculated using adjusted body weight. 2. RD provided brief nutrition edu on DM. Pt requires more edu. Pt expressed udnerstanding. 3. RD discussed ideal body weight and complications with obesity. Pt expressed udnerstanding. Expected Outcomes/Goals Expected Outcomes/Goals 1. PO intake to meet at least 75% of estimated nutritional needs. Physician Parameters for PEM Serum Albumin (g/dl) 3.5 - 5.0 (Normal)
--- NOTE | 2016-10-17 23:42 | History & Physical ---
ADMIT DATE: 10/10/2016 CHIEF COMPLAINT: Lower abdominal wall cellulitis. HISTORY OF PRESENT ILLNESS: This is a 41-year-old female with underlying history of diabetes, hypothyroidism, hyperlipidemia, obesity, who was brought into the Emergency Room for evaluation of the left lower abdominal area redness with superficial ulcerations. The patient was diagnosed with cellulitis, admitted for further evaluation and treatment. The patient is Maltese speaking, cis coordinator was used for communications. The patient stated that symptoms for the past few days, was given oral antibiotic outpatient, but symptoms did not resolve, in fact it got worse. Denies any associated fever, no chills, no nausea, no vomiting or other complaints. PAST MEDICAL HISTORY: 1. Hypothyroidism. 2. Hyperlipidemia. 3. Diabetes. PAST SURGICAL HISTORY: non contributory. FAMILY HISTORY: Noncontributory. SOCIAL HISTORY: Lives at home. Denies any alcohol, tobacco or street drug use. CURRENT MEDICATIONS: The patient at home, ranitidine, Nexium, Glucophage, Synthroid, Claritin, pravastatin and miconazole. REVIEW OF SYSTEMS: The patient denies any fever, no chills, no nausea, no vomiting, no abdominal pain, no headache, no trouble vision, no trouble speech, no dizziness, no palpitation, no hematuria, no dysuria or other complaints. PHYSICAL EXAMINATION: VITAL SIGNS: Temperature 97.9, pulse 85, respiration 19, blood pressure 144/74, oxygen saturation 96% on room air. GENERAL APPEARANCE: The patient does not seem in acute distress. HEART: S1, S2 normal. LUNGS: CTA bilaterally. ABDOMEN: Soft. SKIN: Superficial ulcerations with surrounding erythema in the left lower abdominal area noted. Mild tender, no access formation noted. EXTREMITIES: No edema, no calf tenderness. AVAILABLE LABORATORY DATA: WBC is 9.5, hemoglobin 12.4, hematocrit 36.1, platelet 298. Sodium is 136, potassium 3.8, BUN 15, creatinine 0.5, glucose 118. ALT 22, hemoglobin A1c 6.3. ASSESSMENT: 1. Abdominal wall cellulitis. 2. Obesity. 3. Diabetes mellitus. 4. Hyperlipidemia. 5. Hypothyroidism. PLAN: The patient admitted to Med/Surg unit. Will be started on IV vancomycin and Zosyn. ID was consulted. Local wound care will be given. Home medication reconciled, continue. Blood sugar will be monitored. Vital signs monitored. Discussed with patient and family regarding the patient's condition, plan of care. Plan discussed with nursing staff. [facility]# [id number] TIERRA
== END 2016-10-12 15:05 | disposition home or self-care (01) | DRG 383 ==
LOC: ER 13:02 → MSI 15:25
PROVIDERS: ADMIT Family Medicine; ATTEND Family Medicine
DX: L03.311 Cellulitis of abdominal wall (principal); Z68.43 Body mass index [BMI] 50.0-59.9, adult; G47.33 Obstructive sleep apnea (adult) (pediatric); B35.6 Tinea cruris; E11.9 Type 2 diabetes mellitus without complications; E78.5 Hyperlipidemia, unspecified; E66.01 Morbid (severe) obesity due to excess calories; M79.3 Panniculitis, unspecified; Z83.3 Family history of diabetes mellitus
CPT/HCPCS: 36415-UA; 80048-TC; 80053-TC; 80202-TC; 82948-90; 83036-90; 83605; 85025-TC; 87070-90; J0690; J0692; J1815; J2543; J3370; J7040; Z7610

== ENCOUNTER 2018-02-24 11:26 | Inpatient (IN) | payer MEDICAID ==
--- NOTE | 2018-02-24 11:40 | ED Physician Chart ---
ED Chief Complaint/HPI - Patient Information Date Seen:: 02/24/18 Time Seen:: 11:36 Chief Complaint:: fish bone stuck in neck chest 2 days ago History of Present Illness:: 42 yr old female with possible fish bone stuck in neck chest pt verbalizing well no sob Allergies:: Allergies Allergy/AdvReac Type Severity Reaction Status Date / Time No Known Allergies Allergy Verified 03/18/16 08:09 ED Review of Systems - Review of Systems General/Constitutional: No fever Skin: No skin lesions Head: No headache Eyes: No loss of vision ENT: No earache Neck: Neck pain Cardio Vascular: Chest pain Pulmonary: No SOB GI: No nausea Musculoskeletal: No bone or joint pain Endocrine: No polyuria Psychiatric: No depression Hematopoietic: No bruising Allergic/Immuno: No urticaria Neurological: No syncope ED Past Medical History - Past Medical History Past Medical History: HTN, DM, Dyslipidemia Family Medical History - Family Member Mother History Unknown: Yes Ethnicity: Living Status: Hx Family Diabetes: Yes ED Physical Exam - Physical Examination General/Constitutional: Awake, Well-developed, well-nourished, Alert, No distress, GCS 15, Non-toxic appearing, Ambulatory Head: Atraumatic Eyes: Lids, conjuctiva normal, PERRL, EOMI Skin: Nl inspection, No rash, No skin lesions, No ecchymosis, Well hydrated, No lymphadenopathy ENMT: External ears, nose nl, Nasal exam nl, Lips, teeth, gums nl Neck: Nontender, Full ROM w/o pain, No JVD, No nuchal rigidity, No bruit, No mass, No stridor Respiratory: Nl effort/Exclusion, Clear to Auscultation, No Wheeze/Rhonchi/Rales Cardio Vascular: RRR, No murmur, gallop, rubs, NL S1 S2 GI: No tenderness/rebounding/guarding, No organomegaly, No hernia, Normal BS's, Nondistended, No mass/bruits, No McBurney tenderness : No CVA tenderness Extremities: No tenderness or effusion, Full ROM, normal strength in all extremities, No edema, Normal digits & nails Neuro/Psych: Alert/oriented, DTR's symmetric, Normal sensory exam, Normal motor strength, Judgement/insight normal, Mood normal, Normal gait, No focal deficits Misc: Normal back, No paraspinal tenderness ED Assessment - Assessment General Assessment: possible fish bone irritation in the esophagus ED Septic Shock - . Is Septic Shock (SBP<90, OR Lactate>4 mmol\L) present?: No ED Reassessment (Disposition) - Diagnosis Diagnosis:: possible fish bone stuck in neck - Patient Disposition Condition at Disposition:: Stable
[2018-02-24 13:01] LABS: % BASOPHILS 0.6 % (0.0-2.0); % EOSINOPHILS 1.7 % (0.0-5.0); % LYMPHOCYTES 33.3 % (20.0-50.0); % MONOCYTES 5.2 % (2.0-10.0); % NEUTROPHILS 59.2 % (40.0-80.0); BASOPHILE ABSOLUTE 0.1 Th/cumm (0-0.2); EOSINOPHILE ABSOLUTE 0.1 Th/cmm (0.1-0.4); HEMATOCRIT 37.5 % (41.0-60); HEMOGLOBIN 12.8 gm/dL (12-16); LYMPHOCYTE ABSOLUTE 2.9 Th/cmm (1.5-3.0); MEAN CELL VOLUME 83.6 fl (81-100); MEAN CORPUSCULAR HEMOGLOBIN 28.5 pg (27.0-31.0); MEAN CORPUSCULAR HGB CONC 34.1 pg (28.0-36.0); MEAN PLATELET VOLUME 7.8 fl; MONOCYTE ABSOLUTE 0.4 Th/cmm (0.3-1.0); NEUTROPHILE ABSOLUTE 5.1 Th/cmm (1.8-8.0); PLATELET COUNT 302 Th/cmm (150-400); RED BLOOD COUNT 4.49 Mil/cmm (3.80-5.10); RED CELL DISTRIBUTION WIDTH 13.3 % (11.5-20.0); WHITE BLOOD COUNT 8.6 Th/cmm (4.8-10.8)
--- NOTE | 2018-02-24 13:01 | Diagnostic Imaging Report ---
Exam: Neck soft tissues HISTORY: Foreign body. Findings: Multiple views of the soft tissues of the neck was reviewed. The study demonstrates no evidence of foreign bodies within soft tissues of the neck. The study somewhat limited. The visualized cervical spine is intact. No prevertebral soft tissue swelling is noted. IMPRESSION: No evidence of foreign bodies of the neck.
[2018-02-24 13:07] LABS: URINE SOURCE CLEAN C
[2018-02-24 13:12] LABS: ALB/GLOB RATIO 1.3 (1.0-1.8); ALKALINE PHOSPHATASE 77 U/L (34-104); ANION GAP 11.6 (7.0-16.0); BILIRUBIN,TOTAL 0.4 mg/dL (0.3-1.0); BUN - UREA NITROGEN 14 mg/dL (7-25); CALCIUM SERUM 9.2 mg/dL (8.6-10.3); CARBON DIOXIDE 27.1 mEq/L (21.0-31.0); CHLORIDE 101 mEq/L (98-107); CREATININE - SERUM 0.5 mg/dL (0.6-1.2); GFR AFRICAN-AMERICAN > 60.0 ml/min (>90); GFR NON AFRICAN-AMERICAN > 60.0 ml/min; GLUCOSE 150 mg/dL (70-105); POTASSIUM SERUM 3.7 mEq/L (3.5-5.1); SGOT 37 U/L (13-39); SGPT/ALT 37 U/L (7-52); SODIUM SERUM 136 mEq/L (136-145); TOTAL PROTEIN,SERUM 7.1 gm/dL (6.0-8.3)
[2018-02-24 13:13] LABS: URINE BILIRUBIN NEGATIVE (NEGATIVE); URINE BLOOD SMALL (NEGATIVE); URINE GLUCOSE (UA) NEGATIVE (NEGATIVE); URINE KETONE NEGATIVE (NEGATIVE); URINE LEUKOCYTE ESTERASE NEGATIVE (NEGATIVE); URINE MICROSCOPIC INDICATED? YES; URINE NITRATE NEGATIVE (NEGATIVE); URINE PROTEIN NEGATIVE (NEGATIVE); URINE UROBILINOGEN 0.2 E.U./dL (0.2 - 1.0)
[2018-02-24 13:34] LABS: URINE CLARITY CLEAR (CLEAR); URINE COLOR YELLOW
[2018-02-24 13:38] LABS: URINE EPITHELIAL CELLS MODERATE /lpf (FEW); URINE WBC 0-2 /hpf (0-5)
[2018-02-24 13:39] LABS: URINE BACTERIA 1+ /hpf (NONE SEEN)
[2018-02-24] MEDS ORDERED: D5-0.45NS 1,000 ML IV SCH (15:39)
[2018-02-24] MEDS ORDERED: Propofol 10 mg/mL 20mL Vial **SURGERY USE ONLY IV ONE (16:35)
[2018-02-24] MEDS ORDERED: Lidocaine 2% Gel 5 mL TP ONE (16:35)
--- NOTE | 2018-02-24 18:23 | Consultation ---
DATE OF CONSULTATION: 02/24/2018 INPATIENT GASTROINTESTINAL CONSULTATION REFERRING PHYSICIAN: Dr. Gant. REASON FOR CONSULTATION: Dysphagia, foreign body in the ____. HISTORY OF PRESENT ILLNESS: A 42-year-old female complaining of neck discomfort following the ingestion of a piece of fish and possibly a bone. This had happened approximately 2 days ago, but has not resolved. The patient has not eaten any food today because of the discomfort she is having in her throat. She denies any nausea, vomiting, hematemesis, or coffee-ground emesis. Denies having any frontal abdominal pain, no change in bowel habits. PAST MEDICAL HISTORY: Heartburn. PAST SURGICAL HISTORY: None to add recently. FAMILY HISTORY: Noncontributory. SOCIAL HISTORY: She denies tobacco, alcohol, or IV drug usage. ALLERGIES: None. CURRENT MEDICATIONS: Protonix and IV fluids. REVIEW OF SYSTEMS: Ten point review of system was performed and the pertinent positives is foreign body sensation in the esophagus. All the systems were otherwise negative. PHYSICAL EXAMINATION: VITAL SIGNS: Temperature 98.3, breathing 19, pulse of 89, blood pressure 120/55, and satting 99%. GENERAL: In no apparent distress. EYES: Anicteric. Normal conjunctivae. HEENT: Normocephalic, atraumatic. Moist mucous membranes. NECK: Soft, supple. CHEST: Clear. No effort. CARDIOVASCULAR: Regular rate and rhythm. ABDOMEN: Soft, nontender, nondistended. SKIN: Warm, dry. EXTREMITIES: Reveal no cyanosis. PSYCHOLOGIC: Alert and oriented x3. LABORATORY DATA: Show white count 8.6, hemoglobin 12.8, and platelets of 302. Total bilirubin 0.4, AST 37, ALT 37, and alkaline phosphatase 77. test was negative. IMPRESSION: A 42-year-old female with dysphagia, foreign body in the esophagus, will likely need endoscopy. PLAN: 1. EGD. 2. Continue Protonix. Thank you for allowing me to participate. Please call me if any questions. JOB# [id number]
[2018-02-24 18:47] VITALS: BP 127/69
--- NOTE | 2018-02-24 18:49 | Operative Report ---
DATE OF SURGERY: 02/24/2018 INPATIENT GASTROINTESTINAL PROCEDURE PROCEDURE: EGD with biopsy. REFERRING PHYSICIAN: Dr. Gant. REASON FOR PROCEDURE: Dysphagia, foreign body in the esophagus. CONSENT: Risks, benefits, alternatives, nature, indication, possible outcomes were discussed. Mentioned bleeding, infection, perforation, , disability, cardiopulmonary distress and arrest, missed lesion and cancers, need for surgery. The patient expressed understanding and provided informed consent. PREOPERATIVE DIAGNOSIS: Dysphagia, foreign body in esophagus. POSTOPERATIVE DIAGNOSES: Patent esophagus, gastritis. MEDICATIONS: MAC provided by anesthesiologist. DESCRIPTION OF PROCEDURE: The patient was placed in left side. Upper endoscope advanced from mouth to second portion of the duodenum. Scope was brought back in stomach with retroflexion view of fundus, cardia, lesser curvature. Scope was straightened. Biopsies were taken. Scope was then removed. COMPLICATIONS: None. FINDINGS: 1. GE junction at 35 cm with a patent esophagus. Biopsies were taken to rule out eosinophilic esophagitis. 2. Antral gastritis, status post biopsy. 3. Normal duodenum. RECOMMENDATIONS: 1. Follow up on biopsy. 2. Provide the patient with Protonix. 3. If symptoms persist, consider esophagram, manometry, and other workup accordingly. Thank you for allowing me to participate. Please call me if any questions. JOB# [id number]
[2018-02-24] MEDS ORDERED: RANITIDINE HCL 150 MG PO SCH (22:15)
[2018-02-25 05:39] LABS: % BASOPHILS 0.8 % (0.0-2.0); % EOSINOPHILS 2.4 % (0.0-5.0); % LYMPHOCYTES 32.9 % (20.0-50.0); % MONOCYTES 6.7 % (2.0-10.0); % NEUTROPHILS 57.2 % (40.0-80.0); BASOPHILE ABSOLUTE 0.1 Th/cumm (0-0.2); EOSINOPHILE ABSOLUTE 0.2 Th/cmm (0.1-0.4); HEMATOCRIT 36.2 % (41.0-60); HEMOGLOBIN 12.2 gm/dL (12-16); LYMPHOCYTE ABSOLUTE 2.7 Th/cmm (1.5-3.0); MEAN CORPUSCULAR HEMOGLOBIN 28.4 pg (27.0-31.0); MEAN CORPUSCULAR HGB CONC 33.8 pg (28.0-36.0); MEAN PLATELET VOLUME 7.5 fl; MONOCYTE ABSOLUTE 0.5 Th/cmm (0.3-1.0); NEUTROPHILE ABSOLUTE 4.6 Th/cmm (1.8-8.0); PLATELET COUNT 287 Th/cmm (150-400); RED CELL DISTRIBUTION WIDTH 13.4 % (11.5-20.0); WHITE BLOOD COUNT 8.1 Th/cmm (4.8-10.8)
[2018-02-25 05:53] LABS: ALB/GLOB RATIO 1.3 (1.0-1.8); ALBUMIN 3.5 gm/dL (3.7-5.3); ALKALINE PHOSPHATASE 68 U/L (34-104); ANION GAP 10.1 (7.0-16.0); BILIRUBIN,TOTAL 0.4 mg/dL (0.3-1.0); BUN - UREA NITROGEN 12 mg/dL (7-25); CALCIUM SERUM 9.1 mg/dL (8.6-10.3); CARBON DIOXIDE 28.7 mEq/L (21.0-31.0); CHLORIDE 101 mEq/L (98-107); CREATININE - SERUM 0.6 mg/dL (0.6-1.2); GFR AFRICAN-AMERICAN > 60.0 ml/min (>90); GFR NON AFRICAN-AMERICAN > 60.0 ml/min; GLUCOSE 165 mg/dL (70-105); POTASSIUM SERUM 3.8 mEq/L (3.5-5.1); SGOT 33 U/L (13-39); SGPT/ALT 32 U/L (7-52); SODIUM SERUM 136 mEq/L (136-145); TOTAL PROTEIN,SERUM 6.3 gm/dL (6.0-8.3)
[2018-02-25] MEDS ORDERED: Pantoprazole 40 mg EC Tab PO SCH (07:30)
[2018-02-25] MEDS ORDERED: Levothyroxine 0.088 Mg Tab PO SCH (09:00)
--- NOTE | 2018-02-25 10:24 | Discharge Summary ---
DATE OF DISCHARGE: 02/25/2018 ADMITTING DIAGNOSES: Dysphagia secondary to possible foreign object obstruction in the esophagus. SECONDARY DIAGNOSES: Morbid obesity, type 2 diabetes, hypothyroidism, hypercholesterolemia. DISCHARGE DIAGNOSES: Dysphagia possibly secondary to foreign object in the esophagus - clinically improved. CONSULTANTS: [facility]. MAJOR PROCEDURES: There was an EGD done on 02/24/2018 showing antral gastritis, status post biopsy, normal duodenum. GE junction at 35 with a patent esophagus. No evidence of foreign object. BRIEF HOSPITAL COURSE: 42-year-old female who presented to the ED after a 2-day history of worsening dysphagia to the point that she was having difficulty swallowing water. She states that she had a fish soup the day prior and thinks there might have been a spine stuck in her "neck". At the ER, she had the soft tissue x-ray films showing no evidence of foreign object but given her persistent symptoms, she was electively admitted to the Medical/Surgical floor for further management and care. She underwent above-mentioned procedure without any complications. By hospital day #2, she reported improvement, although she still has some sensation of irritation in the throat area. DISCHARGE MEDICATIONS: Protonix 40 mg every day, Tylenol 500 mg q.4 p.r.n. for pain, famotidine 20 q.12, Synthroid 88 mcg every day, Claritin 10 every day, Glucophage 500 mg b.i.d., simvastatin 20 at bedtime, Cepacol lozenges 1 tab q3/prn-dysphagia. DISPOSITION: The patient was discharged home. I instructed her to keep a soft bland diet for the time being and to follow up her primary care doctor with whom she has an appointment tomorrow. JOB# [id number] MTDD
--- NOTE | 2018-02-25 11:48 | History & Physical Pre-OP ---
DATE OF SERVICE: CHIEF COMPLAINT: Dysphagia, possible foreign object in the esophagus. HISTORY OF PRESENT ILLNESS: This is a 42-year-old female with history of diabetes, hypothyroidism, hypercholesterolemia, who was in her usual state of health until 3 days ago when after eating a fish soup, she felt sore throat and difficulty swallowing and felt she might have accidentally swallowed a fish spine that got stuck on her neck/throat. She continued to have intermittent symptoms for the next couple of days and given the fact that she had difficulty even drinking water, she came into the ER were pertinent findings include a soft tissue neck x-ray showing no evidence of foreign bodies on the neck. Patient was evaluated by ER staff and no foreign object was noted on physical exam. Given her persistent symptoms, she has been admitted to the medical/surgical floor for further management and care. She denies any drooling, any cough and she denied any choking spells while drinking the fish soup. PAST MEDICAL HISTORY: As noted above. PAST SURGICAL HISTORY: Denies. SOCIAL HISTORY: Denies any tobacco, ETOH or illicit drug usage. Lives at home. ALLERGIES: NKDA. OUTPATIENT MEDICATIONS: Nexium 20 mg every day, levothyroxine 88 mcg every day, Claritin 10 every day, Glucophage 500 mg b.i.d., pravastatin 40 at bedtime, and ranitidine 150 q.12 hours. REVIEW OF SYSTEMS: CONSTITUTIONAL: No fever or chills. No recent weight loss. HEAD AND NECK: Please refer to the HPI. CARDIAC: No chest pain, palpitations. PULMONARY: No cough or phlegm production. GASTROINTESTINAL: No bowel habit changes except for dysphagia. GENITOURINARY: No bladder habit changes. NEUROLOGIC: No changes in vision, no headaches, no blurry vision. PHYSICAL EXAMINATION: VITAL SIGNS: Temperature 97.9, pulse 70, respirations 109/55, satting 95% on room air, BP 109/55. GENERAL: She is a well-developed, morbidly obese female who was not in acute distress. HEAD AND NECK: Normocephalic, atraumatic. Pupils reactive to light. Extraocular movements intact. Oropharynx is moist and clear. Oropharynx: There is no obvious evidence of foreign object noted at this time. CARDIAC: Regular rate and rhythm with distant sounds. LUNGS: Diminished at the bases, but clear to auscultation bilaterally. ABDOMEN: Soft, supple, nontender, nondistended, normoactive bowel sounds. LOWER EXTREMITIES: No edema. LABORATORY DATA: On admission were essentially within normal limits except for a glucose of 150, small blood in the urine, 5-10 rbc's. DIAGNOSTICS: Please refer to HPI. ASSESSMENT: 1. Dysphagia, possibly secondary to a stuck foreign object in the esophagus. 2. History of diabetes. 3. History of hyperlipidemia. 4. Hypercholesterolemia. 5. History of hypothyroidism. PLAN: The patient has been admitted to the medical/surgical floor for further management and care. She has been placed on IV fluids, IV PPI and a GI eval will be asked for possible EGD. Her meds will be withheld until she starts eating again. JOB# [id number] MTDQue
--- NOTE | 2018-02-26 20:33 | Pathology Report ---
[id number] Collection Date: 02/24/2018 Surgeon: Dr. Rohini Jimenez Specimen Description: 1. Antrum biopsy 2. Esophageal biopsy Gross Description: Part I: Received in formalin is a single gan soft tissue fragment measuring 0.2 cm in greatest dimension. Totally submitted in one cassette labeled A. Gross Description: Part II: Received in formalin is a single gan soft tissue fragment measuring 0.2 cm in greatest dimension. Totally submitted in one cassette labeled B. Microscopic Description: Part I: The histologic sections show gastric mucosa with mild chronic infiltrate present, consisting of lymphocytes and plasma cells. The Giemsa stain shows no evidence for Helicobacter pylori. Diagnosis: Part I: 1. Mild chronic gastritis, antrum biopsy. 2. The Giemsa stain is negative for Helicobacter pylori. Microscopic Description: Part II: The histologic sections show squamous mucosa consisting of mostly surface epithelium with focal areas of mild chronic inflammation present, consisting of lymphocytes and plasma cells. The PAS stain shows no evidence for fungal organisms. The Alcian blue stain shows no significant abnormalities. There is no evidence for increased numbers of eosinophils. Diagnosis: Part II: 1. Mild nonspecific, chronic inflammation, esophageal biopsy. 2. There is no evidence for eosinophilic esophagitis. [facility]# [id number]
== END 2018-02-25 12:59 | disposition home or self-care (01) | DRG 241 ==
LOC: ER 11:26 → MSI 15:14
PROVIDERS: ADMIT Internal Medicine; ATTEND Internal Medicine
PROC: 0DB48ZX Excision of Esophagogastric Junction, Via Natural or Artificial Opening Endoscopic, Diagnostic (ICD-10-PCS; principal; 2018-02-24)
PROC: 0DB78ZX Excision of Stomach, Pylorus, Via Natural or Artificial Opening Endoscopic, Diagnostic (ICD-10-PCS; 2018-02-24)
DX: K29.70 Gastritis, unspecified, without bleeding (principal); E66.01 Morbid (severe) obesity due to excess calories; T18.128A Food in esophagus causing other injury, initial encounter; R13.10 Dysphagia, unspecified; Z68.44 Body mass index [BMI] 60.0-69.9, adult; I10 Essential (primary) hypertension; E11.9 Type 2 diabetes mellitus without complications; E78.5 Hyperlipidemia, unspecified; E03.9 Hypothyroidism, unspecified; E78.00 Pure hypercholesterolemia, unspecified; X58.XXXA Exposure to other specified factors, initial encounter; Y93.89 Activity, other specified; Y92.89 Other specified places as the place of occurrence of the external cause; Y99.8 Other external cause status; Z83.3 Family history of diabetes mellitus
CPT/HCPCS: 36415-UA; 70360-TC; 70490-TC; 71250-TC; 80053-TC; 81001-TC; 81025-TC; 82270-TC; 82948-90; 83036-90; 85025-TC; C9113; J1885; J2704; Z7610

== ENCOUNTER 2018-05-02 22:38 | Emergency (ER) | payer MEDICAID ==
--- NOTE | 2018-05-02 23:25 | ED Physician Chart ---
ED Chief Complaint/HPI - Patient Information Date Seen:: 05/02/18 Time Seen:: 23:20 Chief Complaint:: lt ear ache History of Present Illness:: 42yr old female with lt ear pain for 3 days Allergies:: Allergies Allergy/AdvReac Type Severity Reaction Status Date / Time No Known Allergies Allergy Verified 03/18/16 08:09 Vitals:: Vital Signs - 8 hr 05/02/18 22:40 Temp 97.5 F HR 75 RR 18 BP 163/71 O2 Sat % 97 ED Review of Systems - Review of Systems General/Constitutional: No fever Skin: No skin lesions Head: No headache Eyes: No loss of vision ENT: Earache Neck: No neck pain Cardio Vascular: No chest pain GI: No vomiting G/U: No dysuria Manager Decision Support: No vaginal discharge Musculoskeletal: No bone or joint pain Endocrine: No polyuria Psychiatric: No anxiety Hematopoietic: No bruising Allergic/Immuno: No urticaria Neurological: No syncope ED Past Medical History - Past Medical History Past Medical History: No significant medical hx, DM Family Medical History - Family Member Mother History Unknown: Yes Ethnicity: Living Status: Hx Family Diabetes: Yes ED Physical Exam - Physical Examination General/Constitutional: Well-developed, well-nourished Head: Atraumatic Eyes: Lids, conjuctiva normal Skin: Nl inspection Neck: Full ROM w/o pain Respiratory: Nl effort/Exclusion Cardio Vascular: RRR GI: No tenderness/rebounding/guarding : NL external genitalia Extremities: No tenderness or effusion Neuro/Psych: Alert/oriented Misc: Normal back ED Assessment - Assessment General Assessment: om left ED Septic Shock - . Is Septic Shock (SBP<90, OR Lactate>4 mmol\L) present?: No - <6hrs of presentation: Vital Signs: Vital Signs - 8 hr 05/02/18 22:40 Temp 97.5 F HR 75 RR 18 BP 163/71 O2 Sat % 97 ED Reassessment (Disposition) - Reassessment Reassessment Condition:: Improved - Diagnosis Diagnosis:: serous om lt ear - Patient Disposition Discharge/Transfer:: Home Condition at Disposition:: Stable
== END 2018-05-03 00:10 | disposition home or self-care (01) ==
LOC: ER 22:38
DX: H65.92 Unspecified nonsuppurative otitis media, left ear (principal); E11.9 Type 2 diabetes mellitus without complications
CPT/HCPCS: 99283; 96372; J0696; Z7502

== ENCOUNTER 2019-01-15 18:31 | Inpatient (IN) | payer MEDICAID ==
[2019-01-15] MEDS ORDERED: Sodium Chloride 0.9% 1,000 ML IV ONE (19:18)
--- NOTE | 2019-01-15 19:25 | ED Physician Chart ---
ED Chief Complaint/HPI - Patient Information Date Seen:: 01/15/19 Time Seen:: 19:10 Chief Complaint:: abdominal wall redness and pain History of Present Illness:: Lower abdominal wall redness and pain for last 3 days of spontaneous onset. No chills or fever. Allergies:: Allergies Allergy/AdvReac Type Severity Reaction Status Date / Time No Known Allergies Allergy Verified 03/18/16 08:09 Vitals:: Vital Signs - 8 hr 01/15/19 18:46 Temp 99.3 F HR 113 RR 16 BP 165/53 O2 Sat % 95 Historian:: Patient Review:: Nurse's Note Reviewed ED Review of Systems - Review of Systems General/Constitutional: No fever, No chills Skin: Skin lesions Head: No headache Eyes: No loss of vision ENT: No earache Neck: No neck pain, No swelling Cardio Vascular: No chest pain, No palpitations GI: No nausea, No vomiting, No diarrhea G/U: No dysuria Musculoskeletal: No bone or joint pain Endocrine: No polyuria Psychiatric: No prior psych history ED Past Medical History - Past Medical History Past Medical History: HTN, DM Family History: Diabetes Melitus Social History: Non Smoker, Alcohol, Other (occasional alcohol consumption) Surgical History: None Psychiatricy History: None Family Medical History - Family Member Mother History Unknown: Yes Ethnicity: Living Status: Hx Family Diabetes: Yes ED Physical Exam - Physical Examination General/Constitutional: Awake, Well-developed, well-nourished, Alert Other Gen/Cons comments:: States she weighs 343 pounds but looks much heavier Head: Atraumatic Eyes: Lids, conjuctiva normal, PERRL Other Skin comments:: About 25 x 15 cm area of erythema lower abdominal wall with induration of about half that area ENMT: External ears, nose nl Neck: No nuchal rigidity Respiratory: Clear to Auscultation Cardio Vascular: RRR, No murmur, gallop, rubs, NL S1 S2 GI: No hernia Other GI comments:: See above under skin : No CVA tenderness Extremities: Normal digits & nails Neuro/Psych: No focal deficits ED Labs/Radiology/EKG Results - Lab Results Results: Laboratory Results WBC 11.5 Th/cmm (4.8-10.8) H 01/15/19 19:30 RBC 4.45 Mil/cmm (3.80-5.10) 01/15/19 19: Hgb 12.8 gm/dL (12-16) 01/15/19 19: Hct 37.5 % (41.0-60) L 01/15/19 19: MCV 84.3 fl (81-100) 01/15/19 19: MCH 28.8 pg (27.0-31.0) 01/15/19: MCHC Differential 34.1 pg (28.0-36.0) 01/15/19: RDW 12.5 % (11.5-20.0) 01/15/19: Plt Count 335 Th/cmm (150-400) 01/15/19: MPV 8.3 fl 01/15/19: Neutrophils % 71.3 % (40.0-80.0) 01/15/19: Lymphocytes % 20.6 % (20.0-50.0) 01/15/19: Monocytes % 6.2 % (2.0-10.0) 01/15/19: Eosinophils % 1.1 % (0.0-5.0) 01/15/19: Basophils % 0.8 % (0.0-2.0) 01/15/19: Sodium 135 mEq/L (136-145) L 01/15/19: Potassium 3.2 mEq/L (3.5-5.1) L 01/15/19: Chloride 101 mEq/L (98-107) 01/15/19: Carbon Dioxide 24.6 mEq/L (21.0-31.0) 01/15/19: Anion Gap 12.6 (7.0-16.0) 01/15/19: BUN 15 mg/dL (7-25) 01/15/19: Creatinine 0.6 mg/dL (0.6-1.2) 01/15/19 19: Est GFR ( Amer) > 60.0 ml/min (>90) 01/15/19 Est GFR (Non-Af Amer) > 60.0 ml/min 08/01/19 19:30 BUN/Creatinine Ratio 25.0 01/15/19 19:30 Glucose 316 mg/dL (70-105) H 01/15/19 19:30 Calcium 8.9 mg/dL (8.6-10.3) 01/15/19 19:30 Magnesium 1.9 mg/dL (1.9-2.7) 01/15/19 19:30 ED Septic Shock - . Is Septic Shock (SBP<90, OR Lactate>4 mmol\L) present?: No - <6hrs of presentation: Vital Signs: Vital Signs - 8 hr 01/15/19 18:46 Temp 99.3 F HR 113 RR 16 BP 165/53 O2 Sat % 95 ED Reassessment (Disposition) - Reassessment Reassessment Condition:: Unchanged - Diagnosis Diagnosis:: Abdominal wall abscess and cellulitis; diabetes; hyperglycemia; morbid obesity - Patient Disposition Admitted to:: Med/Surg Spoke to:: Glenn Gonzales Admitting Medical Physician:: Gelnn Gonzales Condition at Disposition:: Stable, Unchanged
[2019-01-15 19:50] LABS: % BASOPHILS 0.8 % (0.0-2.0); % EOSINOPHILS 1.1 % (0.0-5.0); % LYMPHOCYTES 20.6 % (20.0-50.0); % MONOCYTES 6.2 % (2.0-10.0); % NEUTROPHILS 71.3 % (40.0-80.0); BASOPHILE ABSOLUTE 0.1 Th/cumm (0-0.2); EOSINOPHILE ABSOLUTE 0.1 Th/cmm (0.1-0.4); HEMATOCRIT 37.5 % (41.0-60); HEMOGLOBIN 12.8 gm/dL (12-16); LYMPHOCYTE ABSOLUTE 2.4 Th/cmm (1.5-3.0); MEAN CELL VOLUME 84.3 fl (81-100); MEAN CORPUSCULAR HEMOGLOBIN 28.8 pg (27.0-31.0); MEAN CORPUSCULAR HGB CONC 34.1 pg (28.0-36.0); MONOCYTE ABSOLUTE 0.7 Th/cmm (0.3-1.0); NEUTROPHILE ABSOLUTE 8.2 Th/cmm (1.8-8.0); PLATELET COUNT 335 Th/cmm (150-400); RED BLOOD COUNT 4.45 Mil/cmm (3.80-5.10); RED CELL DISTRIBUTION WIDTH 12.5 % (11.5-20.0); WHITE BLOOD COUNT 11.5 Th/cmm (4.8-10.8)
[2019-01-15 20:01] LABS: ANION GAP 12.6 (7.0-16.0); BUN - UREA NITROGEN 15 mg/dL (7-25); CALCIUM SERUM 8.9 mg/dL (8.6-10.3); CARBON DIOXIDE 24.6 mEq/L (21.0-31.0); CHLORIDE 101 mEq/L (98-107); CREATININE - SERUM 0.6 mg/dL (0.6-1.2); GFR AFRICAN-AMERICAN > 60.0 ml/min (>90); GFR NON AFRICAN-AMERICAN > 60.0 ml/min; GLUCOSE 316 mg/dL (70-105); MAGNESIUM 1.9 mg/dL (1.9-2.7); POTASSIUM SERUM 3.2 mEq/L (3.5-5.1); SODIUM SERUM 135 mEq/L (136-145)
[2019-01-15] MEDS ORDERED: Potassium Chloride 20 mEq ER Tab PO ONE ×2 (20:21→20:23)
[2019-01-15] MEDS ORDERED: INSULIN HUMAN REGULAR 100 UNIT/ML VIAL SUBQ ONE (20:22)
[2019-01-15 20:54] LABS: URINE SOURCE RANDOM
[2019-01-15 20:55] LABS: URINE BILIRUBIN NEGATIVE (NEGATIVE); URINE BLOOD NEGATIVE (NEGATIVE); URINE GLUCOSE (UA) >=1000 mg/dL (NEGATIVE); URINE KETONE NEGATIVE (NEGATIVE); URINE LEUKOCYTE ESTERASE NEGATIVE (NEGATIVE); URINE MICROSCOPIC INDICATED? YES; URINE NITRATE NEGATIVE (NEGATIVE); URINE PROTEIN NEGATIVE (NEGATIVE)
[2019-01-15 21:10] LABS: URINE CLARITY CLEAR (CLEAR); URINE COLOR YELLOW; URINE RBC 0-2 /hpf (0-5); URINE WBC 0-2 /hpf (0-5)
[2019-01-15 21:11] LABS: URINE BACTERIA FEW /hpf (NONE SEEN); URINE EPITHELIAL CELLS FEW /lpf (FEW)
[2019-01-15] MEDS: INSULIN LISPRO SLIDING SCALE 100 UNITS/ML UNIT SUBQ SCH (23:04)
[2019-01-16 01:27] VITALS: BP 122/54
[2019-01-16] MEDS ORDERED: Pneumococcal Vaccine 0.5 mL Vial IM ONE (01:40)
[2019-01-16] MEDS: Acetaminophen 500 MG TAB PO PRN ×4 (04:44→22:05)
[2019-01-16] MEDS: Levothyroxine 0.088 Mg Tab PO SCH (06:50)
[2019-01-16] MEDS: Pantoprazole 40 mg EC Tab PO SCH (06:50)
[2019-01-16 07:08] LABS: A1C 10.3 % (4.8-5.6)
[2019-01-16] MEDS: INSULIN LISPRO SLIDING SCALE 100 UNITS/ML UNIT SUBQ SCH ×4 (07:53→22:02)
[2019-01-16] MEDS ORDERED: VTE Chemical Prophylaxis Screen/Admission MC PRN (10:21)
[2019-01-16] MEDS ORDERED: Probiotic Screen MC PRN (15:17)
[2019-01-16 21:23] LABS: ALB/GLOB RATIO 1.3 (1.0-1.8); ALBUMIN 3.5 gm/dL (3.7-5.3); ALKALINE PHOSPHATASE 69 U/L (34-104); ANION GAP 12.4 (7.0-16.0); BILIRUBIN,TOTAL 0.4 mg/dL (0.3-1.0); BUN - UREA NITROGEN 10 mg/dL (7-25); CALCIUM SERUM 8.8 mg/dL (8.6-10.3); CARBON DIOXIDE 25.3 mEq/L (21.0-31.0); CHLORIDE 103 mEq/L (98-107); CREATININE - SERUM 0.5 mg/dL (0.6-1.2); GFR AFRICAN-AMERICAN > 60.0 ml/min (>90); GFR NON AFRICAN-AMERICAN > 60.0 ml/min; GLUCOSE 225 mg/dL (70-105); POTASSIUM SERUM 3.7 mEq/L (3.5-5.1); SGOT 21 U/L (13-39); SGPT/ALT 25 U/L (7-52); SODIUM SERUM 137 mEq/L (136-145); TOTAL PROTEIN,SERUM 6.3 gm/dL (6.0-8.3)
[2019-01-16 21:24] LABS: INR 0.96 (0.5-1.4)
[2019-01-16] MEDS: Heparin Sod 5,000Units/ML 5,000 UNITS/ML VIAL SUBQ SCH (22:02)
--- NOTE | 2019-01-17 00:30 | Consultation ---
Consult Note - Consult Note Service Date: 01/17/19 Referring Physician: Glenn Gonzales Consult Note: PHYSICIAN Consultation Note: Date of Admission: 01/15/19 Purpose of Consultation: Chief Complaint: History of Present Illness: Patient SHLOMO ALVARADO was admitted to [facility] Medical/Surgical Unit I with CELLULITIS LOWER ABDOMINAL. Past Medical History: Allergies Allergy/AdvReac Type Severity Reaction Status Date / Time No Known Allergies Allergy Verified 03/18/16 08:09 Vital Signs Temp 97.8 F 01/16/19 23:59 Pulse 71 01/16/19 23:59 Resp 19 01/16/19 23:59 BP 96/45 01/16/19 23:59 Pulse Ox 94 01/16/19 23:59 Intake & Output 01/16/19 01/16/19 01/17/19 06:59 18:59 06:59 Intake Total 100 1025 490 Balance 100 1025 490 Weight (lbs) 343 lb 343 lb 343 lb Intake: Intake, IV Amount 250 250 Vancomycin HCl 1 gm In 250 250 Sodium Chloride 0.9% 250 ml @ 165 mls/hr IV Q8H [facility] Rx#:[id number] Oral 100 775 240 Other: # Voids 1 3 1 Weight Source Bedscale Bedscale Bedscale Laboratory Results - last 24 hr 01/16/19 01/16/19 01/16/19 07:46 16:22 20:16 PT INR PTT (Actin FS) Sodium Potassium Chloride Carbon Dioxide Anion Gap BUN Creatinine Est GFR ( Amer) Est GFR (Non-Af Amer) BUN/Creatinine Ratio Glucose POC Glucose 210 H 213 H 217 H Calcium Total Bilirubin AST ALT Alkaline Phosphatase Total Protein Albumin Globulin Albumin/Globulin Ratio 01/16/19 01/16/19 21:04 21:04 PT 10.0 INR 0.96 PTT (Actin FS) 25.2 L Sodium 137 Potassium 3.7 Chloride 103 Carbon Dioxide 25.3 Anion Gap 12.4 BUN 10 Creatinine 0.5 L Est GFR ( Amer) > 60.0 Est GFR (Non-Af Amer) > 60.0 BUN/Creatinine Ratio 20.0 Glucose 225 H POC Glucose Calcium 8.8 Total Bilirubin 0.4 AST 21 ALT 25 Alkaline Phosphatase 69 Total Protein 6.3 Albumin 3.5 L Globulin 2.8 Albumin/Globulin Ratio 1.3 Home Medication Medication Instructions Recorded Type Ranitidine HCl [Ranitidine*] 150 mg PO Q12H #30 tab 03/18/16 Rx Esomeprazole Magnesium [Nexium] 20 mg PO DAILY 10/11/16 History Levothyroxine [Synthroid] 0.88 mg PO DAILY 10/11/16 History Loratadine [Claritin] 10 mg PO DAILY 10/11/16 History Pravastatin Sodium [Pravastatin*] 40 mg PO HS 10/11/16 History metFORMIN [Glucophage] [address] BID 10/11/16 History Current Medications Generic Name Dose Route Start Last Admin Trade Name Freq PRN Reason Stop Dose Admin Acetaminophen 500 mg 01/15/19 22:39 01/16/19 22:05 Tylenol Extra Strength PO 03/16/19 22:38 500 mg Q4H PRN Administration Pain (Moderate) Heparin Sodium (Porcine) 5,000 units 01/16/19 21:00 01/16/19 22:02 Heparin SUBQ 03/17/19 20:59 5,000 units Q12H LUTHER Administration Vancomycin HCl 1 gm/ Sodium 250 mls @ 165 mls/hr 01/16/19 09:00 01/16/19 19: 48 Chloride IV 03/17/19 08:59 Infused Q8H LUTHER Infusion Insulin Human Lispro 0 units 01/16/19 07:30 01/16/19 22:02 Humalog Insulin Sliding Scale SUBQ 03/17/19 07:29 5 units ACHS LUTHER Administration Protocol Levothyroxine Sodium 0.088 mg 01/16/19 07:30 01/16/19 06:50 Synthroid PO 03/17/19 07:29 0.088 mg QDAC LUTHER Administration Loratadine 10 mg 01/16/19 09:00 01/16/19 08:26 Claritin PO 03/17/19 08:59 10 mg DAILY LUTHER Administration Metformin HCl 500 mg 01/15/19 21:30 01/16/19 17:11 Glucophage PO 03/16/19 21:29 500 mg BID LUTHER Administration Miscellaneous 1 01/16/19 09:00 Vancomycin Iv Per Pharmacy 03/17/19 08:59 PRN PRN PROTOCOL Miscellaneous 1 01/16/19 10:21 Vte Chemical Prophylaxis Screen/ Admission 03/17/19 10:20 PRN PRN PROTOCOL Miscellaneous 1 01/16/19 15:17 Probiotic Screen [facility] 03/17/19 15:16 PRN PRN PROTOCOL Pantoprazole Sodium 40 mg 01/16/19 07:30 01/16/19 06:50 Protonix PO 03/17/19 07:29 40 mg QDAC LUTHER Administration Review of Systems: A 12 point ROS was reviewed with the pertinent positive and negatives noted in the HPI. Social History Smoking Status Never smoker Drug Use No Alcohol Use No Family Medical History Family Medical History Start: 01/15/19 22: 39 Freq: ONCE Status: Active Protocol: Document 01/15/19 22:39 GUME (Rec: 01/16/19 01:40 GUME [id number]) Family Medical History Mother History Unknown Yes Ethnicity Living Status Unknown Hx Family Cancer UNKNOWN Hx Family Coronary Artery Disease UNKNOWN Hx Family Congestive Heart Failure UNKNOWN Hx Family Hypertension UNKNOWN Hx Family Stroke UNKNOWN Hx Family Diabetes Yes Hx Family Seizures UNKNOWN Hx Family Dementia UNKNOWN Hx Family AIDS UNKNOWN Hx Family COPD UNKNOWN Hx Family Hepatitis UNKNOWN Hx Family Psychiatric Problems UNKNOWN Hx Family Tuberculosis UNKNOWN Physical Exam: General: HEENT: Neck: Cardio: Respiratory: Abdominal: right lower quadrant cellullitits with abcess suspected Genital/Urinary: Extremities: Neurological: Assessment: r/o abeominal abcess formation Plan: CT abdomen pelvis to show if any presence of abcess is present if positive an incision and dranage procedure is planned Signed, Joycelyn Bui [id number]
[2019-01-17] MEDS: Levothyroxine 0.088 Mg Tab PO SCH (06:43)
[2019-01-17] MEDS: Pantoprazole 40 mg EC Tab PO SCH (06:43)
--- NOTE | 2019-01-17 08:00 | Consultation ---
DATE OF CONSULTATION: 01/16/2019 INFECTIOUS DISEASE CONSULTATION REFERRING PHYSICIAN: Glenn Gonzales M.D. REASON FOR CONSULTATION: Abdominal wall cellulitis, abscess. HISTORY OF PRESENT ILLNESS: The patient is a 43-year-old female with a past medical history of morbid obesity, diabetes mellitus type 2, hypertension, may have sleep apnea, brought to the ER for abdominal pain and redness for last 3 days. She denies any fever or chills. On initial evaluation, the patient's temperature was 99.3 degrees Fahrenheit and WBC count was 11,500. Wound cultures are done. Vancomycin IV was started and ID consult was called for further antibiotic management. PAST MEDICAL HISTORY: Includes diabetes mellitus type 2, hypertension, and morbid obesity with a BMI of 63. The patient might have sleep apnea. SOCIAL HISTORY: The patient denies any smoking, alcohol, or drug use. FAMILY HISTORY: Noncontributory. Diabetes mellitus type 2. REVIEW OF SYSTEMS: GENERAL: The patient has no fever, no chills. HEENT: No diplopia, no photophobia, no sore throat. RESPIRATORY: No cough, no shortness of breath. CARDIOVASCULAR: No chest pain, no palpitation. GASTROINTESTINAL: No nausea, no vomiting, no diarrhea, no constipation, and no abdominal pain. The patient has tenderness, swelling, and redness in the right lower quadrant. GENITOURINARY: No dysuria. CENTRAL NERVOUS SYSTEM: No headache, no dizziness, no focal weakness. PHYSICAL EXAMINATION: VITAL SIGNS: Current vitals shows temperature is 98.5 degrees Fahrenheit, pulse is 84, respirations 18, and blood pressure is 105/53. GENERAL: The patient is comfortable, obese with a BMI of 63. HEENT: Head is normocephalic, atraumatic. Oral cavity is moist, pink tongue. EYES: No pallor, no icterus. Pupils, PERRLA, EOMI. NECK: Supple, no JVD, no carotid bruit. Trachea in midline. CHEST: Bilateral breath sounds. No crackles or wheezing. Decreased breath sounds. HEART: S1, S2 within normal limits. Regular rhythm. No murmur, no gallop. ABDOMEN: Soft, nontender, and nondistended. Bowel sounds present. The patient has pendulous abdomen. Very obese. The patient has redness, swelling, and tenderness in the right lower quadrant with necrotic center. It involves almost area of 25-15 cm in largest dimension. EXTREMITIES: No cyanosis, no clubbing, and no edema. NEUROLOGIC: She is alert, awake, and oriented x 3. LABORATORY DATA: Current lab shows WBC count is 11,500, hemoglobin is 12.8, hematocrit is 37.5, platelets are 335,000, and neutrophils 71.3%. Sodium is 137, potassium is 3.7, chloride is 103, bicarbonate is 25.3, BUN is 10, creatinine is 0.5, and glucose is 235. Urinalysis shows negative nitrite, negative leukoesterase. Blood culture, 1 set is negative for 24 hours. IMPRESSION: 1. Right lower quadrant abdominal abscess with cellulitis, most likely methicillin-resistant Staphylococcus aureus infection. 2. Morbid obesity with a BMI of 63. 3. Diabetes mellitus type 2. 4. Hypertension. 5. Suspect sleep apnea. RECOMMENDATIONS: We will continue vancomycin IV and wait for the wound culture report. The patient is scheduled for I and D by Dr. Arnoldo Bui. Addendum: Differential includes also necrotizing fascitis because of her obesity, it is hard to see clinically at this time. Thank you, Dr. Glenn Gonzales, for involving me in taking care of this patient. JOB# [id number]
--- NOTE | 2019-01-17 09:17 | Diagnostic Imaging Report ---
Exam: CT examination abdomen pelvis HISTORY: Cellulitis Total DLP equals 1047 CTDI equals 19.9 Findings: Multiple contiguous thin section of the abdomen pelvis obtained from lower thorax to the pubic symphysis without the demonstration contrast material, the study correlated with the prior exam of 03/18/2016. The study demonstrates fatty density liver parenchyma. The spleen is intact. There is evidence of previous cholecystectomy. The pancreas is normal. The kidneys demonstrate no evidence of obstructive uropathy or nephrolithiasis. No free fluid is noted. The visualized appendix is intact. The uterus is normal. The urinary bladder is contracted. There is a question of mild inflammatory changes subcutaneous the right flank area. IMPRESSION: Limited examination due to size of patient the superficial skin surface not visualized, again due to large size of patient. Fatty infiltration liver parenchyma. Status post cholecystectomy.
[2019-01-17] MEDS: INSULIN LISPRO SLIDING SCALE 100 UNITS/ML UNIT SUBQ SCH ×4 (09:34→20:24)
[2019-01-17] MEDS: Heparin Sod 5,000Units/ML 5,000 UNITS/ML VIAL SUBQ SCH ×2 (09:57→20:24)
--- NOTE | 2019-01-17 12:09 | History & Physical ---
ADMIT DATE: 01/16/2019 CHIEF COMPLAINT: Abdominal wall redness and painful lump. HISTORY OF PRESENT ILLNESS: A 43-year-old female with underlying history of diabetes, morbid obesity, and hypothyroidism, who was evaluated in the Emergency Room at [facility] for lower abdominal wall area redness, pain, and swelling. The patient was diagnosed with cellulitis with possible cyst with abscess. During this afternoon, the patient says she feels fine, was resting comfortably. No fever, no chills, no nausea, and vomiting or any other concerns reported. The patient states that she had a similar history about a year ago when she was hospitalized at the same hospital and underwent incision and drainage. General Surgery and ID was consulted. Plan is to have I and D by General Surgery tomorrow. The patient is currently on broad-spectrum IV antibiotics. PAST MEDICAL HISTORY: Morbid obesity, diabetes, hypothyroidism. PAST SURGICAL HISTORY: None reported. FAMILY HISTORY: None. SOCIAL HISTORY: Lives at home. No reported alcohol, tobacco, or drug use. CURRENT MEDICATIONS: Per medication reconciliation. ALLERGIES: No known drug allergies reported. REVIEW OF SYSTEMS: As per HPI, 12-point system is negative. PHYSICAL EXAMINATION: VITAL SIGNS: Temperature 98.5, pulse 84, respirations 18, blood pressure 95/53. HEART: S1, S2 normal. LUNGS: Clear. ABDOMEN: Soft. SKIN: Lower abdominal wall area erythema, redness, and small area of abscess noted. AVAILABLE LABORATORY DATA: Reviewed. ASSESSMENT: 1. Abdominal wall abscess with cellulitis. 2. Morbid obesity. 3. Diabetes. 4. Hypothyroidism. PLAN: The patient is currently admitted to Med/Surg unit, started on diabetic diet, broad-spectrum antibiotic. ID and General Surgery consulted. I and D planned per General Surgery. Home medications continued. Blood pressure was monitored. Discussed with the patient regarding her condition, plan of care, Slovenian speaking [facility] ____ used for interpretation. [facility]# [id number]
--- NOTE | 2019-01-17 13:28 | General Progress Note ---
Subjective - Review of Systems Service Date: 01/17/19 Subjective: patient noted doing well drainage is occuring at cellulitis furuncle no need for incision high risk for non healing and successful results with nursing wound care changes preventative measures 1. dietary consult caloric restrictions and vitamin supplementation 2. bariatric surgical procedures optional 3. pannus maceration prevention with blow drying sessions and clothing Objective - Results Result Diagrams: 01/15/19 19:30 01/16/19 21:04 Recent Labs: Laboratory Last Values WBC 11.5 Th/cmm (4.8-10.8) H 01/15/19 19:30 RBC 4.45 Mil/cmm (3.80-5.10) 01/15/19 19:30 Hgb 12.8 gm/dL (12-16) 01/15/19 19: Hct 37.5 % (41.0-60) L 01/15/19 19:30 MCV 84.3 fl (81-100) 01/15/19 19:30 MCH 28.8 pg (27.0-31.0) 01/15/19 19: MCHC Differential 34.1 pg (28.0-36.0) 01/15/19 19:30 RDW 12.5 % (11.5-20.0) 01/15/19 19: Plt Count 335 Th/cmm (150-400) 01/15/19 19:30 MPV 8.3 fl 01/15/19 19:30 Neutrophils % 71.3 % (40.0-80.0) 01/15/19: Lymphocytes % 20.6 % (20.0-50.0) 01/15/19: Monocytes % 6.2 % (2.0-10.0) 01/15/19 19: Eosinophils % 1.1 % (0.0-5.0) 01/15/19: Basophils % 0.8 % (0.0-2.0) 01/15/19 19: PT 10.0 SECONDS (9.5-11.5) 01/16/19 21:04 INR 0.96 (0.5-1.4) 01/16/19 21:04 PTT (Actin FS) 25.2 SECONDS (26.0-38.0) L 01/16/19 21:04 Sodium 137 mEq/L (136-145) 01/16/19 21:04 Potassium 3.7 mEq/L (3.5-5.1) 01/16/19 21:04 Chloride 103 mEq/L (98-107) 01/16/19 21:04 Carbon Dioxide 25.3 mEq/L (21.0-31.0) 01/16/19 21:04 Anion Gap 12.4 (7.0-16.0) 01/16/19 21:04 BUN 10 mg/dL (7-25) 01/16/19 21:04 Creatinine 0.5 mg/dL (0.6-1.2) L 01/16/19 21:04 Est GFR ( Amer) > 60.0 ml/min (>90) 01/16/19 21:04 Est GFR (Non-Af Amer) > 60.0 ml/min 01/16/19 21:04 BUN/Creatinine Ratio 20.0 01/16/19 21:04 Glucose 225 mg/dL (70-105) H 01/16/19 21:04 POC Glucose 173 MG/DL (70 - 105) H 01/17/19 11:23 Calcium 8.8 mg/dL (8.6-10.3) 01/16/19 21:04 Magnesium 1.9 mg/dL (1.9-2.7) 01/15/19 19:30 Total Bilirubin 0.4 mg/dL (0.3-1.0) 01/16/19 21:04 AST 21 U/L (13-39) 01/16/19 21:04 ALT 25 U/L (7-52) 01/16/19 21:04 Alkaline Phosphatase 69 U/L (34-104) 01/16/19 21:04 Total Protein 6.3 gm/dL (6.0-8.3) 01/16/19 21:04 Albumin 3.5 gm/dL (3.7-5.3) L 01/16/19 21:04 Globulin 2.8 gm/dL 01/16/19 21:04 Albumin/Globulin Ratio 1.3 (1.0-1.8) 01/16/19 21:04 Urine Source RANDOM 01/15/19 20:30 Urine Color YELLOW 01/15/19 20:30 Urine Clarity CLEAR (CLEAR) 01/15/19 20:30 Urine pH 6.0 (4.6 - 8.0) 01/15/19 20:30 Ur Specific [place] 1.020 (1.005-1.030) 01/15/19 20:30 Urine Protein NEGATIVE mg/dL (NEGATIVE) 01/15/19 20:30 Urine Glucose (UA) >=1000 mg/dL (NEGATIVE) H 01/15/19 20:30 Urine Ketones NEGATIVE mg/dL (NEGATIVE) 01/15/19 20:30 Urine Blood NEGATIVE (NEGATIVE) 01/15/19 20:30 Urine Nitrate NEGATIVE (NEGATIVE) 01/15/19 20:30 Urine Bilirubin NEGATIVE (NEGATIVE) 01/15/19 20:30 Urine Urobilinogen 1.0 E.U./dL (0.2 - 1.0) 01/15/19 20:30 Ur Leukocyte Esterase NEGATIVE (NEGATIVE) 01/15/19 20:30 Urine RBC 0-2 /hpf (0-5) 01/15/19 20:30 Urine WBC 0-2 /hpf (0-5) 01/15/19 20:30 Ur Epithelial Cells FEW /lpf (FEW) 01/15/19 20:30 Urine Bacteria FEW /hpf (NONE SEEN) 01/15/19 20:30 Vancomycin Trough 8.2 ug/mL (5-10) 01/17/19 08:05 - Physical Exam Vitals and I&O: Vital Signs Temp 98.5 F 01/17/19 12:00 Pulse 78 01/17/19 12:00 Resp 19 01/17/19 12:00 BP 129/73 01/17/19 12:00 Pulse Ox 98 01/17/19 12:00 Intake & Output 01/16/19 01/17/19 01/17/19 18:59 06:59 18:59 Intake Total 1025 980 250 Balance 1025 980 250 Weight (lbs) 343 lb 346 lb Intake: Intake, IV Amount 250 500 250 Vancomycin HCl 1 gm In 250 500 Sodium Chloride 0.9% 250 ml @ 165 mls/hr IV Q8H [facility] Rx#:[id number] Vancomycin HCl 1.25 gm In 250 Sodium Chloride 0.9% 250 ml @ 165 mls/hr IV Q8HR [facility] Rx#:[id number] Oral 775 480 Other: # Voids 3 1 Weight Source Bedscale Bedscale Active Medications: Current Medications Acetaminophen (Tylenol Extra Strength) 500 mg PO Q4H PRN PRN Reason: Pain (Moderate) Stop: 03/16/19 22:38 Last Admin: 01/16/19 22:05 Dose: 500 mg Heparin Sodium (Porcine) (Heparin) 5,000 units SUBQ Q12H [facility] Stop: 03/17/19 20:59 Last Admin: 01/17/19 09:57 Dose: 5,000 units Vancomycin HCl 1.25 gm/ Sodium (Chloride) 250 mls @ 165 mls/hr IV Q8HR [facility] Stop: 03/18/19 09:44 Last Admin: 01/17/19 12:32 Dose: 165 mls/hr Insulin Human Lispro (Humalog Insulin Sliding Scale) 0 units SUBQ ACHS [facility]; Protocol Stop: 03/17/19 07:29 Last Admin: 01/17/19 11:27 Dose: Not Given Levothyroxine Sodium (Synthroid) 0.088 mg PO QDAC [facility] Stop: 03/17/19 07:29 Last Admin: 01/17/19 06:43 Dose: Not Given Loratadine (Claritin) 10 mg PO DAILY [facility] Stop: 03/17/19 08:59 Last Admin: 01/17/19 09:37 Dose: Not Given Metformin HCl (Glucophage) 500 mg PO BID [facility] Stop: 03/16/19 21:29 Last Admin: 01/17/19 09:37 Dose: Not Given Miscellaneous (Vancomycin Iv Per Pharmacy) 1 [facility] PRN PRN PRN Reason: PROTOCOL Stop: 03/17/19 08:59 Miscellaneous (Vte Chemical Prophylaxis Screen/ Admission) 1 [facility] PRN PRN PRN Reason: PROTOCOL Stop: 03/17/19 10:20 Miscellaneous (Probiotic Screen) 1 [facility] PRN PRN PRN Reason: PROTOCOL Stop: 03/17/19 15:16 Pantoprazole Sodium (Protonix) 40 mg PO QDAC [facility] Stop: 03/17/19 07:29 Last Admin: 01/17/19 06:43 Dose: Not Given - Procedures Procedures: Procedures Procedure Code Date EXCISION OF ESOPHAGOGASTRIC JUNCTION, ENDO, DIAGN [id number] 02/24/18 EXCISION OF STOMACH, PYLORUS, ENDO, DIAGN [id number] 09/10/18 Nutritional Asmnt/Malnutr-PDOC - Dietary Evaluation Malnutrition Findings (Please click <Entered> for more info): Nutritional Asmnt/Malnutrition Start: 01/16/19 15: 50 Text: Status: Complete Freq: Protocol: Document 01/16/19 15:50 CRISTIAN (Rec: 01/16/19 15:55 CRISTIAN [email or web address]) Nutritional Asmnt/Malnutrition Patient General Information Nutritional Screening High Risk Consult Diagnosis Cellulitis Lower Abdominal Pertinent Medical Hx/Surgical Hx HTN, DM Subjective Information Consult: Diabetic, Blood sugar during admission - 316 Pt is a 43-year-old female admitted on 01/15 c/o abdominal wall redness and pain x3 days. Spoke to AARON Collier, Pt ate 100 % at breakfast and lunch today . Pt was sleeping at time of visit. Will follow up with Pt as high risk to provide nutrition education for glucose control if needed. May want to consider calories restricted diet d/t BMI 62.73 (Morbidly Obese). HT: 52 WT: 343 LB (155.9 kg) ADJ BW: 92.42 kg BMI: 62.73 (Morbidly Obese) GI: Large, Round, Swelling, Red, Warm to Touch BM: Not noted I/O: 100/Not Noted Skin: Warm, Dry, Tight, Abscess on RT Lower Abdomen Carl: 18 Diet Order: [facility] Estimated Energy Needs: (Obese III, ADJ BW) 4818-7921 kcals (20-25 kcals/ kg) 74-83g Pro (0.8-0.9 g/kg) 6587-5727 ml (25-30 ml/kg) Current Diet Order/ Nutrition Support [facility] Pertinent Medications INS-SS, Synthroid, Glucophage, Protonix Pertinent Labs 01/15: Hgb/Hct 12.8/37.5, Na 135 , Potass 3.2, Glucose 316, POC Glucose (last 24 hours) 251, 210 Nutritional Hx/Data Height 5 ft 2 in Height (Calculated Centimeters) 157.5 Current Weight (lbs) 343 lb Weight (Calculated Kilograms) 155.6 Weight (Calculated Grams) 443555.2 [place] Body Weight 50.1 kg % [place] Body Weight 311 Body Mass Index (BMI) 62.7 Weight Status Morbidly Obese GI Symptoms GI Symptoms None Last BM Not noted Skin Integrity/Comment: Warm, Dry, Tight, Abscess on RT Lower Abdomen Carl: 18 Current %PO Good (75-100%) Estimated Nutritional Goals BEE in Kcals: Adj wt of IBW Calories/Kcals/Kg 20-25 Kcals Calculated 1686-8250 Protein: Adj wt of IBW Protein g/k.8-0.9 Protein Calculated 74-83 Fluid: ml 3333-4430 ml (25-30 ml/kg) Nutritional Problem 1. Problem Problem Altered nutrition related labs Etiology r/t endocrine dysfunction Signs/Symptoms: aeb lab result Glucose 316, POC Glucose (last 24 hours) 251, 210 Intervention/Recommendation Comments 1.Continue with [facility] diet as ordered. 2.Consider calories restricted diet. Expected Outcomes/Goals Expected Outcomes/Goals 1.PO intake to meet 75% of nutritional needs. 2.Monitor PO intake, wt, skin integrity, and nutrition related labs to trend WNL. 3.F/U as high risk in 2-3 days , 01/18-01/19
[2019-01-17] MEDS: Acetaminophen 500 MG TAB PO PRN (16:53)
--- NOTE | 2019-01-17 21:40 | General Progress Note ---
Subjective - Review of Systems Service Date: 01/17/19 Subjective: patient doing ok no new concern noted No I/D per surgery Objective - Results Result Diagrams: 01/15/19 19:30 01/16/19 21:04 Recent Labs: Laboratory Last Values WBC 11.5 Th/cmm (4.8-10.8) H 01/15/19 19:30 RBC 4.45 Mil/cmm (3.80-5.10) 01/15/19 19: Hgb 12.8 gm/dL (12-16) 01/15/19 19:30 Hct 37.5 % (41.0-60) L 01/15/19: MCV 84.3 fl (81-100) 01/15/19: MCH 28.8 pg (27.0-31.0) 01/15/19: MCHC Differential 34.1 pg (28.0-36.0) 01/15/19: RDW 12.5 % (11.5-20.0) 01/15/19: Plt Count 335 Th/cmm (150-400) 01/15/19 19: MPV 8.3 fl 01/15/19 19: Neutrophils % 71.3 % (40.0-80.0) 01/15/19: Lymphocytes % 20.6 % (20.0-50.0) 01/15/19: Monocytes % 6.2 % (2.0-10.0) 01/15/19: Eosinophils % 1.1 % (0.0-5.0) 01/15/19: Basophils % 0.8 % (0.0-2.0) 01/15/19 19: PT 10.0 SECONDS (9.5-11.5) 01/16/19 21:04 INR 0.96 (0.5-1.4) 01/16/19 21:04 PTT (Actin FS) 25.2 SECONDS (26.0-38.0) L 01/16/19 21:04 Sodium 137 mEq/L (136-145) 01/16/19 21:04 Potassium 3.7 mEq/L (3.5-5.1) 01/16/19 21:04 Chloride 103 mEq/L (98-107) 01/16/19 21:04 Carbon Dioxide 25.3 mEq/L (21.0-31.0) 01/16/19 21:04 Anion Gap 12.4 (7.0-16.0) 01/16/19 21:04 BUN 10 mg/dL (7-25) 01/16/19 21:04 Creatinine 0.5 mg/dL (0.6-1.2) L 01/16/19 21:04 Est GFR ( Amer) > 60.0 ml/min (>90) 01/16/19 21:04 Est GFR (Non-Af Amer) > 60.0 ml/min 01/16/19 21:04 BUN/Creatinine Ratio 20.0 01/16/19 21:04 Glucose 225 mg/dL (70-105) H 01/16/19 21:04 POC Glucose 188 MG/DL (70 - 105) H 01/17/19 20:13 Calcium 8.8 mg/dL (8.6-10.3) 01/16/19 21:04 Magnesium 1.9 mg/dL (1.9-2.7) 01/15/19 19:30 Total Bilirubin 0.4 mg/dL (0.3-1.0) 01/16/19 21:04 AST 21 U/L (13-39) 01/16/19 21:04 ALT 25 U/L (7-52) 01/16/19 21:04 Alkaline Phosphatase 69 U/L (34-104) 01/16/19 21:04 Total Protein 6.3 gm/dL (6.0-8.3) 01/16/19 21:04 Albumin 3.5 gm/dL (3.7-5.3) L 01/16/19 21:04 Globulin 2.8 gm/dL 01/16/19 21:04 Albumin/Globulin Ratio 1.3 (1.0-1.8) 01/16/19 21:04 Urine Source RANDOM 01/15/19 20:30 Urine Color YELLOW 01/15/19 20:30 Urine Clarity CLEAR (CLEAR) 01/15/19 20:30 Urine pH 6.0 (4.6 - 8.0) 01/15/19 20:30 Ur Specific [place] 1.020 (1.005-1.030) 01/15/19 20:30 Urine Protein NEGATIVE mg/dL (NEGATIVE) 01/15/19 20:30 Urine Glucose (UA) >=1000 mg/dL (NEGATIVE) H 01/15/19 20:30 Urine Ketones NEGATIVE mg/dL (NEGATIVE) 01/15/19 20:30 Urine Blood NEGATIVE (NEGATIVE) 01/15/19 20:30 Urine Nitrate NEGATIVE (NEGATIVE) 01/15/19 20:30 Urine Bilirubin NEGATIVE (NEGATIVE) 01/15/19 20:30 Urine Urobilinogen 1.0 E.U./dL (0.2 - 1.0) 01/15/19 20:30 Ur Leukocyte Esterase NEGATIVE (NEGATIVE) 01/15/19 20:30 Urine RBC 0-2 /hpf (0-5) 01/15/19 20:30 Urine WBC 0-2 /hpf (0-5) 01/15/19 20:30 Ur Epithelial Cells FEW /lpf (FEW) 01/15/19 20:30 Urine Bacteria FEW /hpf (NONE SEEN) 01/15/19 20:30 Vancomycin Trough 8.2 ug/mL (5-10) 01/17/19 08:05 - Physical Exam Vitals and I&O: Vital Signs Temp 98.5 F 01/17/19 20:00 Pulse 80 01/17/19 20:00 Resp 18 01/17/19 20:00 BP 124/67 01/17/19 20:00 Pulse Ox 93 01/17/19 20:00 Intake & Output 01/17/19 01/17/19 01/18/19 06:59 18:59 06:59 Intake Total 980 1100 Balance 980 1100 Weight (lbs) 156.943 kg 156.943 kg Intake: Intake, IV Amount 500 500 Vancomycin HCl 1 gm In 500 Sodium Chloride 0.9% 250 ml @ 165 mls/hr IV Q8H [facility] Rx#:[id number] Vancomycin HCl 1.25 gm In 500 Sodium Chloride 0.9% 250 ml @ 165 mls/hr IV Q8HR [facility] Rx#:[id number] Oral 480 600 Other: # Voids 1 2 # Bowel Movements 0 Weight Source Bedscale Bedscale Active Medications: Current Medications Acetaminophen (Tylenol Extra Strength) 500 mg PO Q4H PRN PRN Reason: Pain (Moderate) Stop: 03/16/19 22:38 Last Admin: 01/17/19 16:53 Dose: 500 mg Heparin Sodium (Porcine) (Heparin) 5,000 units SUBQ Q12H [facility] Stop: 03/17/19 20:59 Last Admin: 01/17/19 20:24 Dose: 5,000 units Vancomycin HCl 1.25 gm/ Sodium (Chloride) 250 mls @ 165 mls/hr IV Q8HR [facility] Stop: 03/18/19 09:44 Last Admin: 01/17/19 20:22 Dose: 165 mls/hr Insulin Human Lispro (Humalog Insulin Sliding Scale) 0 units SUBQ ACHS [facility]; Protocol Stop: 03/17/19 07:29 Last Admin: 01/17/19 20:24 Dose: 3 units Levothyroxine Sodium (Synthroid) 0.088 mg PO QDAC [facility] Stop: 03/17/19 07:29 Last Admin: 01/17/19 06:43 Dose: Not Given Loratadine (Claritin) 10 mg PO DAILY [facility] Stop: 03/17/19 08:59 Last Admin: 01/17/19 09:37 Dose: Not Given Metformin HCl (Glucophage) 500 mg PO BID [facility] Stop: 03/16/19 21:29 Last Admin: 01/17/19 17:13 Dose: 500 mg Miscellaneous (Vancomycin Iv Per Pharmacy) 1 [facility] PRN PRN PRN Reason: PROTOCOL Stop: 03/17/19 08:59 Miscellaneous (Vte Chemical Prophylaxis Screen/ Admission) 1 [facility] PRN PRN PRN Reason: PROTOCOL Stop: 03/17/19 10:20 Miscellaneous (Probiotic Screen) 1 [facility] PRN PRN PRN Reason: PROTOCOL Stop: 03/17/19 15:16 Pantoprazole Sodium (Protonix) 40 mg PO QDAC [facility] Stop: 03/17/19 07:29 Last Admin: 01/17/19 06:43 Dose: Not Given Skin: Other (ABD wall erythema slightly better) - Procedures Procedures: Procedures Procedure Code Date EXCISION OF ESOPHAGOGASTRIC JUNCTION, ENDO, DIAGN [id number] 02/24/18 EXCISION OF STOMACH, PYLORUS, ENDO, DIAGN [id number] 02/24/18 Assessment/Plan - Assessment Assessment: ABD WALL CELLULITS DM II MORBID OBESITY - Plan Plan: Continue IV Antibiotics ID On board Nutritional Asmnt/Malnutr-PDOC - Dietary Evaluation Malnutrition Findings (Please click <Entered> for more info): Nutritional Asmnt/Malnutrition Start: 01/16/19 15: 50 Text: Status: Complete Freq: Protocol: Document 01/16/19 15:50 CRISTIAN (Rec: 01/16/19 15:55 CRISTIAN [email or web address]) Nutritional Asmnt/Malnutrition Patient General Information Nutritional Screening High Risk Consult Diagnosis Cellulitis Lower Abdominal Pertinent Medical Hx/Surgical Hx HTN, DM Subjective Information Consult: Diabetic, Blood sugar during admission - 316 Pt is a 43-year-old female admitted on 01/15 c/o abdominal wall redness and pain x3 days. Spoke to AARON Collier, Pt ate 100 % at breakfast and lunch today . Pt was sleeping at time of visit. Will follow up with Pt as high risk to provide nutrition education for glucose control if needed. May want to consider calories restricted diet d/t BMI 62.73 (Morbidly Obese). HT: 52 WT: 343 LB (155.9 kg) ADJ BW: 92.42 kg BMI: 62.73 (Morbidly Obese) GI: Large, Round, Swelling, Red, Warm to Touch BM: Not noted I/O: 100/Not Noted Skin: Warm, Dry, Tight, Abscess on RT Lower Abdomen Carl: 18 Diet Order: [facility] Estimated Energy Needs: (Obese III, ADJ BW) 0432-3382 kcals (20-25 kcals/ kg) 74-83g Pro (0.8-0.9 g/kg) 2164-1892 ml (25-30 ml/kg) Current Diet Order/ Nutrition Support [facility] Pertinent Medications INS-SS, Synthroid, Glucophage, Protonix Pertinent Labs 01/15: Hgb/Hct 12.8/37.5, Na 135 , Potass 3.2, Glucose 316, POC Glucose (last 24 hours) 251, 210 Nutritional Hx/Data Height 1.57 m Height (Calculated Centimeters) 157.5 Current Weight (lbs) 155.582 kg Weight (Calculated Kilograms) 155.6 Weight (Calculated Grams) 222305.2 [place] Body Weight 50.1 kg % [place] Body Weight 311 Body Mass Index (BMI) 62.7 Weight Status Morbidly Obese GI Symptoms GI Symptoms None Last BM Not noted Skin Integrity/Comment: Warm, Dry, Tight, Abscess on RT Lower Abdomen Carl: 18 Current %PO Good (75-100%) Estimated Nutritional Goals BEE in Kcals: Adj wt of IBW Calories/Kcals/Kg 20-25 Kcals Calculated 4766-7448 Protein: Adj wt of IBW Protein g/k.8-0.9 Protein Calculated 74-83 Fluid: ml 3475-8154 ml (25-30 ml/kg) Nutritional Problem 1. Problem Problem Altered nutrition related labs Etiology r/t endocrine dysfunction Signs/Symptoms: aeb lab result Glucose 316, POC Glucose (last 24 hours) 251, 210 Intervention/Recommendation Comments 1.Continue with [facility] diet as ordered. 2.Consider calories restricted diet. Expected Outcomes/Goals Expected Outcomes/Goals 1.PO intake to meet 75% of nutritional needs. 2.Monitor PO intake, wt, skin integrity, and nutrition related labs to trend WNL. 3.F/U as high risk in 2-3 days , 01/18-01/19
[2019-01-18] MEDS: Acetaminophen 500 MG TAB PO PRN ×3 (02:21→16:47)
[2019-01-18] MEDS: Pantoprazole 40 mg EC Tab PO SCH (06:36)
[2019-01-18] MEDS: Levothyroxine 0.088 Mg Tab PO SCH (06:36)
[2019-01-18] MEDS: INSULIN LISPRO SLIDING SCALE 100 UNITS/ML UNIT SUBQ SCH ×4 (07:49→20:34)
[2019-01-18] MEDS: Heparin Sod 5,000Units/ML 5,000 UNITS/ML VIAL SUBQ SCH ×2 (08:11→20:35)
--- NOTE | 2019-01-18 11:54 | General Progress Note ---
Subjective - Review of Systems Service Date: 01/18/19 Subjective: patient c/o loose stools no fever or abd pain or nausea or vomiting reported Objective - Results Result Diagrams: 01/15/19 19:30 01/16/19 21:04 Recent Labs: Laboratory Last Values WBC 11.5 Th/cmm (4.8-10.8) H 01/15/19 19:30 RBC 4.45 Mil/cmm (3.80-5.10) 01/15/19 19: Hgb 12.8 gm/dL (12-16) 01/15/19 19: Hct 37.5 % (41.0-60) L 01/15/19 19: MCV 84.3 fl (81-100) 01/15/19: MCH 28.8 pg (27.0-31.0) 01/15/19: MCHC Differential 34.1 pg (28.0-36.0) 01/15/19: RDW 12.5 % (11.5-20.0) 01/15/19: Plt Count 335 Th/cmm (150-400) 01/15/19 19: MPV 8.3 fl 01/15/19 19: Neutrophils % 71.3 % (40.0-80.0) 01/15/19: Lymphocytes % 20.6 % (20.0-50.0) 01/15/19: Monocytes % 6.2 % (2.0-10.0) 01/15/19: Eosinophils % 1.1 % (0.0-5.0) 01/15/19: Basophils % 0.8 % (0.0-2.0) 01/15/19 19: PT 10.0 SECONDS (9.5-11.5) 01/16/19 21:04 INR 0.96 (0.5-1.4) 01/16/19 21:04 PTT (Actin FS) 25.2 SECONDS (26.0-38.0) L 01/16/19 21:04 Sodium 137 mEq/L (136-145) 01/16/19 21:04 Potassium 3.7 mEq/L (3.5-5.1) 01/16/19 21:04 Chloride 103 mEq/L (98-107) 01/16/19 21:04 Carbon Dioxide 25.3 mEq/L (21.0-31.0) 01/16/19 21:04 Anion Gap 12.4 (7.0-16.0) 01/16/19 21:04 BUN 10 mg/dL (7-25) 01/16/19 21:04 Creatinine 0.5 mg/dL (0.6-1.2) L 01/16/19 21:04 Est GFR ( Amer) > 60.0 ml/min (>90) 01/16/19 21:04 Est GFR (Non-Af Amer) > 60.0 ml/min 01/16/19 21:04 BUN/Creatinine Ratio 20.0 01/16/19 21:04 Glucose 225 mg/dL (70-105) H 01/16/19 21:04 POC Glucose 163 MG/DL (70 - 105) H 01/18/19 11:06 Calcium 8.8 mg/dL (8.6-10.3) 01/16/19 21:04 Magnesium 1.9 mg/dL (1.9-2.7) 01/15/19 19:30 Total Bilirubin 0.4 mg/dL (0.3-1.0) 01/16/19 21:04 AST 21 U/L (13-39) 01/16/19 21:04 ALT 25 U/L (7-52) 01/16/19 21:04 Alkaline Phosphatase 69 U/L (34-104) 01/16/19 21:04 Total Protein 6.3 gm/dL (6.0-8.3) 01/16/19 21:04 Albumin 3.5 gm/dL (3.7-5.3) L 01/16/19 21:04 Globulin 2.8 gm/dL 01/16/19 21:04 Albumin/Globulin Ratio 1.3 (1.0-1.8) 01/16/19 21:04 Urine Source RANDOM 01/15/19 20:30 Urine Color YELLOW 01/15/19 20:30 Urine Clarity CLEAR (CLEAR) 01/15/19 20:30 Urine pH 6.0 (4.6 - 8.0) 01/15/19 20:30 Ur Specific [place] 1.020 (1.005-1.030) 01/15/19 20:30 Urine Protein NEGATIVE mg/dL (NEGATIVE) 01/15/19 20:30 Urine Glucose (UA) >=1000 mg/dL (NEGATIVE) H 01/15/19 20:30 Urine Ketones NEGATIVE mg/dL (NEGATIVE) 01/15/19 20:30 Urine Blood NEGATIVE (NEGATIVE) 01/15/19 20:30 Urine Nitrate NEGATIVE (NEGATIVE) 01/15/19 20:30 Urine Bilirubin NEGATIVE (NEGATIVE) 01/15/19 20:30 Urine Urobilinogen 1.0 E.U./dL (0.2 - 1.0) 01/15/19 20:30 Ur Leukocyte Esterase NEGATIVE (NEGATIVE) 01/15/19 20:30 Urine RBC 0-2 /hpf (0-5) 01/15/19 20:30 Urine WBC 0-2 /hpf (0-5) 01/15/19 20:30 Ur Epithelial Cells FEW /lpf (FEW) 01/15/19 20:30 Urine Bacteria FEW /hpf (NONE SEEN) 01/15/19 20:30 Vancomycin Trough 8.2 ug/mL (5-10) 01/17/19 08:05 - Physical Exam Vitals and I&O: Vital Signs Temp 96 F 01/18/19 07:00 Pulse 76 01/18/19 07:00 Resp 18 01/18/19 08:00 BP 111/72 01/18/19 07:00 Pulse Ox 95 01/18/19 07:00 Intake & Output 01/17/19 01/18/19 01/18/19 18:59 06:59 18:59 Intake Total 1100 250 Balance 1100 250 Weight (lbs) 156.943 kg Intake: Intake, IV Amount 500 250 Vancomycin HCl 1.25 gm In 500 250 Sodium Chloride 0.9% 250 ml @ 165 mls/hr IV Q8HR [facility] Rx#:[id number] Oral 600 Other: # Voids 2 # Bowel Movements 0 Weight Source Bedscale Active Medications: Current Medications Acetaminophen (Tylenol Extra Strength) 500 mg PO Q4H PRN PRN Reason: Pain (Moderate) Stop: 03/16/19 22:38 Last Admin: 01/18/19 09:06 Dose: 500 mg Heparin Sodium (Porcine) (Heparin) 5,000 units SUBQ Q12H [facility] Stop: 03/17/19 20:59 Last Admin: 01/18/19 08:11 Dose: 5,000 units Vancomycin HCl 1.25 gm/ Sodium (Chloride) 250 mls @ 165 mls/hr IV Q8HR [facility] Stop: 03/18/19 09:44 Last Admin: 01/18/19 04:22 Dose: 165 mls/hr Insulin Human Lispro (Humalog Insulin Sliding Scale) 0 units SUBQ ACHS [facility]; Protocol Stop: 03/17/19 07:29 Last Admin: 01/18/19 11:10 Dose: Not Given Levothyroxine Sodium (Synthroid) 0.088 mg PO QDAC [facility] Stop: 03/17/19 07:29 Last Admin: 01/18/19 06:36 Dose: 0.088 mg Loratadine (Claritin) 10 mg PO DAILY [facility] Stop: 03/17/19 08:59 Last Admin: 01/18/19 08:12 Dose: 10 mg Metformin HCl (Glucophage) 500 mg PO BID [facility] Stop: 03/16/19 21:29 Last Admin: 01/18/19 08:12 Dose: 500 mg Miscellaneous (Vancomycin Iv Per Pharmacy) 1 [facility] PRN PRN PRN Reason: PROTOCOL Stop: 03/17/19 08:59 Miscellaneous (Vte Chemical Prophylaxis Screen/ Admission) 1 [facility] PRN PRN PRN Reason: PROTOCOL Stop: 03/17/19 10:20 Miscellaneous (Probiotic Screen) 1 [facility] PRN PRN PRN Reason: PROTOCOL Stop: 03/17/19 15:16 Pantoprazole Sodium (Protonix) 40 mg PO QDAC [facility] Stop: 03/17/19 07:29 Last Admin: 01/18/19 06:36 Dose: 40 mg Cardiovascular: Regular rate Lungs: Clear to auscultation Skin: Other (ABD wall erythema slightly better) - Procedures Procedures: Procedures Procedure Code Date EXCISION OF ESOPHAGOGASTRIC JUNCTION, ENDO, DIAGN [id number] 02/24/18 EXCISION OF STOMACH, PYLORUS, ENDO, DIAGN [id number] 02/24/18 Assessment/Plan - Assessment Assessment: ABD WALL CELLULITS DM II Diarrhea MORBID OBESITY - Plan Plan: Stool for c diff Continue IV Antibiotics ID On board Nutritional Asmnt/Malnutr-PDOC - Dietary Evaluation Malnutrition Findings (Please click <Entered> for more info): Nutritional Asmnt/Malnutrition Start: 01/16/19 15: 50 Text: Status: Complete Freq: Protocol: Document 01/16/19 15:50 CRISTIAN (Rec: 01/16/19 15:55 [email or web address]) Nutritional Asmnt/Malnutrition Patient General Information Nutritional Screening High Risk Consult Diagnosis Cellulitis Lower Abdominal Pertinent Medical Hx/Surgical Hx HTN, DM Subjective Information Consult: Diabetic, Blood sugar during admission - 316 Pt is a 43-year-old female admitted on 01/15 c/o abdominal wall redness and pain x3 days. Spoke to AARON Collier, Pt ate 100 % at breakfast and lunch today . Pt was sleeping at time of visit. Will follow up with Pt as high risk to provide nutrition education for glucose control if needed. May want to consider calories restricted diet d/t BMI 62.73 (Morbidly Obese). HT: 52 WT: 343 LB (155.9 kg) ADJ BW: 92.42 kg BMI: 62.73 (Morbidly Obese) GI: Large, Round, Swelling, Red, Warm to Touch BM: Not noted I/O: 100/Not Noted Skin: Warm, Dry, Tight, Abscess on RT Lower Abdomen Carl: 18 Diet Order: [facility] Estimated Energy Needs: (Obese III, ADJ BW) 7622-9889 kcals (20-25 kcals/ kg) 74-83g Pro (0.8-0.9 g/kg) 2221-7579 ml (25-30 ml/kg) Current Diet Order/ Nutrition Support [facility] Pertinent Medications INS-SS, Synthroid, Glucophage, Protonix Pertinent Labs 01/15: Hgb/Hct 12.8/37.5, Na 135 , Potass 3.2, Glucose 316, POC Glucose (last 24 hours) 251, 210 Nutritional Hx/Data Height 1.57 m Height (Calculated Centimeters) 157.5 Current Weight (lbs) 155.582 kg Weight (Calculated Kilograms) 155.6 Weight (Calculated Grams) 180611.2 [place] Body Weight 50.1 kg % [place] Body Weight 311 Body Mass Index (BMI) 62.7 Weight Status Morbidly Obese GI Symptoms GI Symptoms None Last BM Not noted Skin Integrity/Comment: Warm, Dry, Tight, Abscess on RT Lower Abdomen Carl: 18 Current %PO Good (75-100%) Estimated Nutritional Goals BEE in Kcals: Adj wt of IBW Calories/Kcals/Kg 20-25 Kcals Calculated 5832-2765 Protein: Adj wt of IBW Protein g/k.8-0.9 Protein Calculated 74-83 Fluid: ml 6945-6206 ml (25-30 ml/kg) Nutritional Problem 1. Problem Problem Altered nutrition related labs Etiology r/t endocrine dysfunction Signs/Symptoms: aeb lab result Glucose 316, POC Glucose (last 24 hours) 251, 210 Intervention/Recommendation Comments 1.Continue with [facility] diet as ordered. 2.Consider calories restricted diet. Expected Outcomes/Goals Expected Outcomes/Goals 1.PO intake to meet 75% of nutritional needs. 2.Monitor PO intake, wt, skin integrity, and nutrition related labs to trend WNL. 3.F/U as high risk in 2-3 days , 01/18-01/19
--- NOTE | 2019-01-18 15:38 | Infectious Disease Prog Note ---
Infectious Disease Subjective - Review of Systems Service Date: 01/18/19 Subjective: There is no new change, no fever. Infectious Disease Objective - Results Result Diagrams: 01/15/19 19:30 01/16/19 21:04 Recent Labs: Laboratory Last Values WBC 11.5 Th/cmm (4.8-10.8) H 01/15/19 19: RBC 4.45 Mil/cmm (3.80-5.10) 01/15/19: Hgb 12.8 gm/dL (12-16) 01/15/19 19: Hct 37.5 % (41.0-60) L 01/15/19: MCV 84.3 fl (81-100) 01/15/19: MCH 28.8 pg (27.0-31.0) 01/15/19: MCHC Differential 34.1 pg (28.0-36.0) 01/15/19: RDW 12.5 % (11.5-20.0) 01/15/19: Plt Count 335 Th/cmm (150-400) 01/15/19 19: MPV 8.3 fl 01/15/19 19: Neutrophils % 71.3 % (40.0-80.0) 01/15/19: Lymphocytes % 20.6 % (20.0-50.0) 01/15/19: Monocytes % 6.2 % (2.0-10.0) 01/15/19: Eosinophils % 1.1 % (0.0-5.0) 01/15/19: Basophils % 0.8 % (0.0-2.0) 01/15/19 19: PT 10.0 SECONDS (9.5-11.5) 01/16/19 21:04 INR 0.96 (0.5-1.4) 01/16/19 21:04 PTT (Actin FS) 25.2 SECONDS (26.0-38.0) L 01/16/19 21:04 Sodium 137 mEq/L (136-145) 01/16/19 21:04 Potassium 3.7 mEq/L (3.5-5.1) 01/16/19 21:04 Chloride 103 mEq/L (98-107) 01/16/19 21:04 Carbon Dioxide 25.3 mEq/L (21.0-31.0) 01/16/19 21:04 Anion Gap 12.4 (7.0-16.0) 01/16/19 21:04 BUN 10 mg/dL (7-25) 01/16/19 21:04 Creatinine 0.5 mg/dL (0.6-1.2) L 01/16/19 21:04 Est GFR ( Amer) > 60.0 ml/min (>90) 01/16/19 21:04 Est GFR (Non-Af Amer) > 60.0 ml/min 01/16/19 21:04 BUN/Creatinine Ratio 20.0 01/16/19 21:04 Glucose 225 mg/dL (70-105) H 01/16/19 21:04 POC Glucose 163 MG/DL (70 - 105) H 01/18/19 11:06 Calcium 8.8 mg/dL (8.6-10.3) 01/16/19 21:04 Magnesium 1.9 mg/dL (1.9-2.7) 01/15/19 19:30 Total Bilirubin 0.4 mg/dL (0.3-1.0) 01/16/19 21:04 AST 21 U/L (13-39) 01/16/19 21:04 ALT 25 U/L (7-52) 01/16/19 21:04 Alkaline Phosphatase 69 U/L (34-104) 01/16/19 21:04 Total Protein 6.3 gm/dL (6.0-8.3) 01/16/19 21:04 Albumin 3.5 gm/dL (3.7-5.3) L 01/16/19 21:04 Globulin 2.8 gm/dL 01/16/19 21:04 Albumin/Globulin Ratio 1.3 (1.0-1.8) 01/16/19 21:04 Urine Source RANDOM 01/15/19 20:30 Urine Color YELLOW 01/15/19 20:30 Urine Clarity CLEAR (CLEAR) 01/15/19 20:30 Urine pH 6.0 (4.6 - 8.0) 01/15/19 20:30 Ur Specific [place] 1.020 (1.005-1.030) 01/15/19 20:30 Urine Protein NEGATIVE mg/dL (NEGATIVE) 01/15/19 20:30 Urine Glucose (UA) >=1000 mg/dL (NEGATIVE) H 01/15/19 20:30 Urine Ketones NEGATIVE mg/dL (NEGATIVE) 01/15/19 20:30 Urine Blood NEGATIVE (NEGATIVE) 01/15/19 20:30 Urine Nitrate NEGATIVE (NEGATIVE) 01/15/19 20:30 Urine Bilirubin NEGATIVE (NEGATIVE) 01/15/19 20:30 Urine Urobilinogen 1.0 E.U./dL (0.2 - 1.0) 01/15/19 20:30 Ur Leukocyte Esterase NEGATIVE (NEGATIVE) 01/15/19 20:30 Urine RBC 0-2 /hpf (0-5) 01/15/19 20:30 Urine WBC 0-2 /hpf (0-5) 01/15/19 20:30 Ur Epithelial Cells FEW /lpf (FEW) 01/15/19 20:30 Urine Bacteria FEW /hpf (NONE SEEN) 01/15/19 20:30 Vancomycin Trough 8.2 ug/mL (5-10) 01/17/19 08:05 - Physical Exam Vitals and I&O: Vital Signs Temp 97 F 01/18/19 11:00 Pulse 77 01/18/19 11:00 Resp 19 01/18/19 11:00 BP 134/72 01/18/19 11:00 Pulse Ox 96 01/18/19 11:00 Intake & Output 01/17/19 01/18/19 01/18/19 18:59 06:59 18:59 Intake Total 1100 500 Balance 1100 500 Weight (lbs) 156.943 kg Intake: Intake, IV Amount 500 500 Vancomycin HCl 1.25 gm In 500 500 Sodium Chloride 0.9% 250 ml @ 165 mls/hr IV Q8HR REPLACED BY [facility] Rx#:[id number] Oral 600 Other: # Voids 2 # Bowel Movements 0 Weight Source Bedscale Active Medications: Current Medications Acetaminophen (Tylenol Extra Strength) 500 mg PO Q4H PRN PRN Reason: Pain (Moderate) Stop: 03/16/19 22:38 Last Admin: 01/18/19 09:06 Dose: 500 mg Heparin Sodium (Porcine) (Heparin) 5,000 units SUBQ Q12H REPLACED BY [facility] Stop: 03/17/19 20:59 Last Admin: 01/18/19 08:11 Dose: 5,000 units Vancomycin HCl 1.25 gm/ Sodium (Chloride) 250 mls @ 165 mls/hr IV Q8HR REPLACED BY [facility] Stop: 03/18/19 09:44 Last Admin: 01/18/19 12:16 Dose: 165 mls/hr Insulin Human Lispro (Humalog Insulin Sliding Scale) 0 units SUBQ ACHS REPLACED BY [facility]; Protocol Stop: 03/17/19 07:29 Last Admin: 01/18/19 11:10 Dose: Not Given Lactobacillus Rhamnosus (Culturelle 15b) 1 each PO BID REPLACED BY [facility] Stop: 03/19/19 16:59 Levothyroxine Sodium (Synthroid) 0.088 mg PO QDAC REPLACED BY [facility] Stop: 03/17/19 07:29 Last Admin: 01/18/19 06:36 Dose: 0.088 mg Loratadine (Claritin) 10 mg PO DAILY [facility] Stop: 03/17/19 08:59 Last Admin: 01/18/19 08:12 Dose: 10 mg Metformin HCl (Glucophage) 500 mg PO BID [facility] Stop: 03/16/19 21:29 Last Admin: 01/18/19 08:12 Dose: 500 mg Miscellaneous (Vancomycin Iv Per Pharmacy) 1 [facility] PRN PRN PRN Reason: PROTOCOL Stop: 03/17/19 08:59 Miscellaneous (Vte Chemical Prophylaxis Screen/ Admission) 1 [facility] PRN PRN PRN Reason: PROTOCOL Stop: 03/17/19 10:20 Miscellaneous (Probiotic Screen) 1 [facility] PRN PRN PRN Reason: PROTOCOL Stop: 03/17/19 15:16 Pantoprazole Sodium (Protonix) 40 mg PO QDAC [facility] Stop: 03/17/19 07:29 Last Admin: 01/18/19 06:36 Dose: 40 mg General: no acute distress, well developed, well nourished, other (obese) HEENT: atraumatic, normocephalic, PERRLA, moist mucous membrane Neck: supple, no thyromegaly Cardiovascular: S1S2, regular Lungs: clear to auscultation bilaterally, clear to percussion Abdomen: soft, other (RIght lower quadrant abscess.), no tender, no distended Extremities: no cyanosis, no clubbing, no edema Neurological: awake, alert, oriented Skin: intact - Procedures Procedures: Procedures Procedure Code Date EXCISION OF ESOPHAGOGASTRIC JUNCTION, ENDO, DIAGN [id number] 02/24/18 EXCISION OF STOMACH, PYLORUS, ENDO, DIAGN [id number] 02/24/18 Infectious Disease Assmt/Plan - Assessment Assessment: 1. Right lower quadrant abdominal abscess with cellulitis, most likely methicillin-resistant Staphylococcus aureus infection. 2. Morbid obesity with a BMI of 63. 3. Diabetes mellitus type 2. 4. Hypertension. 5. Suspect sleep apnea. - Plan Plan: Continue vanco IV and add rocephin. Nutritional Asmnt/Malnutr-PDOC - Dietary Evaluation Malnutrition Findings (Please click <Entered> for more info): Nutritional Asmnt/Malnutrition Start: 01/16/19 15: 50 Text: Status: Complete Freq: Protocol: Document 01/16/19 15:50 CRISTIAN (Rec: 01/16/19 15:55 [email or web address]) Nutritional Asmnt/Malnutrition Patient General Information Nutritional Screening High Risk Consult Diagnosis Cellulitis Lower Abdominal Pertinent Medical Hx/Surgical Hx HTN, DM Subjective Information Consult: Diabetic, Blood sugar during admission - 316 Pt is a 43-year-old female admitted on 01/15 c/o abdominal wall redness and pain x3 days. Spoke to AARON Collier, Pt ate 100 % at breakfast and lunch today . Pt was sleeping at time of visit. Will follow up with Pt as high risk to provide nutrition education for glucose control if needed. May want to consider calories restricted diet d/t BMI 62.73 (Morbidly Obese). HT: 52 WT: 343 LB (155.9 kg) ADJ BW: 92.42 kg BMI: 62.73 (Morbidly Obese) GI: Large, Round, Swelling, Red, Warm to Touch BM: Not noted I/O: 100/Not Noted Skin: Warm, Dry, Tight, Abscess on RT Lower Abdomen Carl: 18 Diet Order: [facility] Estimated Energy Needs: (Obese III, ADJ BW) 4120-3186 kcals (20-25 kcals/ kg) 74-83g Pro (0.8-0.9 g/kg) 1347-4865 ml (25-30 ml/kg) Current Diet Order/ Nutrition Support [facility] Pertinent Medications INS-SS, Synthroid, Glucophage, Protonix Pertinent Labs 01/15: Hgb/Hct 12.8/37.5, Na 135 , Potass 3.2, Glucose 316, POC Glucose (last 24 hours) 251, 210 Nutritional Hx/Data Height 1.57 m Height (Calculated Centimeters) 157.5 Current Weight (lbs) 155.582 kg Weight (Calculated Kilograms) 155.6 Weight (Calculated Grams) 211663.2 [place] Body Weight 50.1 kg % [place] Body Weight 311 Body Mass Index (BMI) 62.7 Weight Status Morbidly Obese GI Symptoms GI Symptoms None Last BM Not noted Skin Integrity/Comment: Warm, Dry, Tight, Abscess on RT Lower Abdomen Carl: 18 Current %PO Good (75-100%) Estimated Nutritional Goals BEE in Kcals: Adj wt of IBW Calories/Kcals/Kg 20-25 Kcals Calculated 4839-3416 Protein: Adj wt of IBW Protein g/k.8-0.9 Protein Calculated 74-83 Fluid: ml 4159-7237 ml (25-30 ml/kg) Nutritional Problem 1. Problem Problem Altered nutrition related labs Etiology r/t endocrine dysfunction Signs/Symptoms: aeb lab result Glucose 316, POC Glucose (last 24 hours) 251, 210 Intervention/Recommendation Comments 1.Continue with [facility] diet as ordered. 2.Consider calories restricted diet. Expected Outcomes/Goals Expected Outcomes/Goals 1.PO intake to meet 75% of nutritional needs. 2.Monitor PO intake, wt, skin integrity, and nutrition related labs to trend WNL. 3.F/U as high risk in 2-3 days , 01/18-01/19
[2019-01-18] MEDS: cefTRIAXone 2 GM in Sodium Chloride 0.9% 100 ML IV SCH (16:02)
[2019-01-18] MEDS: Lactobacillus Rhamnosus GG 15 Billion CFU CAP.SPRINK PO SCH (16:44)
[2019-01-19] MEDS: Levothyroxine 0.088 Mg Tab PO SCH (06:46)
[2019-01-19] MEDS: Pantoprazole 40 mg EC Tab PO SCH (06:46)
[2019-01-19] MEDS: INSULIN LISPRO SLIDING SCALE 100 UNITS/ML UNIT SUBQ SCH ×4 (07:53→21:20)
[2019-01-19] MEDS: Heparin Sod 5,000Units/ML 5,000 UNITS/ML VIAL SUBQ SCH ×2 (08:16→21:15)
[2019-01-19] MEDS: Lactobacillus Rhamnosus GG 15 Billion CFU CAP.SPRINK PO SCH ×2 (08:16→17:17)
--- NOTE | 2019-01-19 08:44 | Diagnostic Imaging Report ---
Abdominal ultrasound HISTORY: Pain Exam is limited due to patient's size, body habitus, bowel gas. Limited detail of the liver. No obvious focal lesions. The gallbladder is not seen. Findings should be correlated with patient's surgical history. The common bile duct could not be visualized. The pancreas is not seen. The right kidney appears normal. No focal lesions or hydronephrosis. The left kidney appears increased in size (13.8 x 6.6 x 6.5 cm). No definite focal lesions. No hydronephrosis. The spleen appears normal in size. No other obvious retroperitoneal or intra-abdominal abnormalities. IMPRESSION: 1. Very limited exam due to patient's size, body habitus, bowel gas 2. Suggestion of a somewhat enlarged left kidney 3. No other obvious abnormal masses or fluid collections.
--- NOTE | 2019-01-19 11:28 | Infectious Disease Prog Note ---
Infectious Disease Subjective - Review of Systems Service Date: 01/19/19 Subjective: There is no new change, no fever. wound is draining pus Infectious Disease Objective - Results Result Diagrams: 01/15/19 19:30 01/16/19 21:04 Recent Labs: Laboratory Last Values WBC 11.5 Th/cmm (4.8-10.8) H 01/15/19 19:30 RBC 4.45 Mil/cmm (3.80-5.10) 01/15/19 19: Hgb 12.8 gm/dL (12-16) 01/15/19 19: Hct 37.5 % (41.0-60) L 01/15/19 19: MCV 84.3 fl (81-100) 01/15/19: MCH 28.8 pg (27.0-31.0) 01/15/19: MCHC Differential 34.1 pg (28.0-36.0) 01/15/19: RDW 12.5 % (11.5-20.0) 01/15/19: Plt Count 335 Th/cmm (150-400) 01/15/19 19: MPV 8.3 fl 01/15/19 19: Neutrophils % 71.3 % (40.0-80.0) 01/15/19: Lymphocytes % 20.6 % (20.0-50.0) 01/15/19: Monocytes % 6.2 % (2.0-10.0) 01/15/19: Eosinophils % 1.1 % (0.0-5.0) 01/15/19: Basophils % 0.8 % (0.0-2.0) 01/15/19 19: PT 10.0 SECONDS (9.5-11.5) 01/16/19 21:04 INR 0.96 (0.5-1.4) 01/16/19 21:04 PTT (Actin FS) 25.2 SECONDS (26.0-38.0) L 01/16/19 21:04 Sodium 137 mEq/L (136-145) 01/16/19 21:04 Potassium 3.7 mEq/L (3.5-5.1) 01/16/19 21:04 Chloride 103 mEq/L (98-107) 01/16/19 21:04 Carbon Dioxide 25.3 mEq/L (21.0-31.0) 01/16/19 21:04 Anion Gap 12.4 (7.0-16.0) 01/16/19 21:04 BUN 10 mg/dL (7-25) 01/16/19 21:04 Creatinine 0.5 mg/dL (0.6-1.2) L 01/16/19 21:04 Est GFR ( Amer) > 60.0 ml/min (>90) 01/16/19 21:04 Est GFR (Non-Af Amer) > 60.0 ml/min 01/16/19 21:04 BUN/Creatinine Ratio 20.0 01/16/19 21:04 Glucose 225 mg/dL (70-105) H 01/16/19 21:04 POC Glucose 183 MG/DL (70 - 105) H 01/19/19 07:50 Calcium 8.8 mg/dL (8.6-10.3) 01/16/19 21:04 Magnesium 1.9 mg/dL (1.9-2.7) 01/15/19 19:30 Total Bilirubin 0.4 mg/dL (0.3-1.0) 01/16/19 21:04 AST 21 U/L (13-39) 01/16/19 21:04 ALT 25 U/L (7-52) 01/16/19 21:04 Alkaline Phosphatase 69 U/L (34-104) 01/16/19 21:04 Total Protein 6.3 gm/dL (6.0-8.3) 01/16/19 21:04 Albumin 3.5 gm/dL (3.7-5.3) L 01/16/19 21:04 Globulin 2.8 gm/dL 01/16/19 21:04 Albumin/Globulin Ratio 1.3 (1.0-1.8) 01/16/19 21:04 Urine Source RANDOM 01/15/19 20:30 Urine Color YELLOW 01/15/19 20:30 Urine Clarity CLEAR (CLEAR) 01/15/19 20:30 Urine pH 6.0 (4.6 - 8.0) 01/15/19 20:30 Ur Specific [place] 1.020 (1.005-1.030) 01/15/19 20:30 Urine Protein NEGATIVE mg/dL (NEGATIVE) 01/15/19 20:30 Urine Glucose (UA) >=1000 mg/dL (NEGATIVE) H 01/15/19 20:30 Urine Ketones NEGATIVE mg/dL (NEGATIVE) 01/15/19 20:30 Urine Blood NEGATIVE (NEGATIVE) 01/15/19 20:30 Urine Nitrate NEGATIVE (NEGATIVE) 01/15/19 20:30 Urine Bilirubin NEGATIVE (NEGATIVE) 01/15/19 20:30 Urine Urobilinogen 1.0 E.U./dL (0.2 - 1.0) 01/15/19 20:30 Ur Leukocyte Esterase NEGATIVE (NEGATIVE) 01/15/19 20:30 Urine RBC 0-2 /hpf (0-5) 01/15/19 20:30 Urine WBC 0-2 /hpf (0-5) 01/15/19 20:30 Ur Epithelial Cells FEW /lpf (FEW) 01/15/19 20:30 Urine Bacteria FEW /hpf (NONE SEEN) 01/15/19 20:30 Vancomycin Trough 8.2 ug/mL (5-10) 01/17/19 08:05 - Physical Exam Vitals and I&O: Vital Signs Temp 97.1 F 01/19/19 08:00 Pulse 79 01/19/19 08:00 Resp 18 01/19/19 08:00 BP 102/69 01/19/19 08:00 Pulse Ox 100 01/19/19 08:00 Intake & Output 01/18/19 01/19/19 01/19/19 18:59 06:59 18:59 Intake Total 1375 250 Balance 1375 250 Weight (lbs) 156.943 kg Intake: Intake, IV Amount 250 250 Vancomycin HCl 1.25 gm In 250 250 Sodium Chloride 0.9% 250 ml @ 165 mls/hr IV Q8HR [facility] Rx#:[id number] Oral 1125 Other: # Voids 3 Weight Source Bedscale Active Medications: Current Medications Acetaminophen (Tylenol Extra Strength) 500 mg PO Q4H PRN PRN Reason: Pain (Moderate) Stop: 03/16/19 22:38 Last Admin: 01/18/19 16:47 Dose: 500 mg Heparin Sodium (Porcine) (Heparin) 5,000 units SUBQ Q12H [facility] Stop: 03/17/19 20:59 Last Admin: 01/19/19 08:16 Dose: 5,000 units Vancomycin HCl 1.25 gm/ Sodium (Chloride) 250 mls @ 165 mls/hr IV Q8HR [facility] Stop: 03/18/19 09:44 Last Admin: 01/19/19 04:36 Dose: 165 mls/hr Ceftriaxone Sodium 2 gm/ (Sodium Chloride) 100 mls @ 100 mls/hr IV Q24H [facility] Stop: 03/19/19 15:44 Last Admin: 01/18/19 16:02 Dose: 100 mls/hr Insulin Human Lispro (Humalog Insulin Sliding Scale) 0 units SUBQ ACHS [facility]; Protocol Stop: 03/17/19 07:29 Last Admin: 01/19/19 07:53 Dose: 3 units Lactobacillus Rhamnosus (Culturelle 15b) 1 each PO BID [facility] Stop: 03/19/19 16:59 Last Admin: 01/19/19 08:16 Dose: 1 each Levothyroxine Sodium (Synthroid) 0.088 mg PO QDAC [facility] Stop: 03/17/19 07:29 Last Admin: 01/19/19 06:46 Dose: 0.088 mg Loratadine (Claritin) 10 mg PO DAILY [facility] Stop: 03/17/19 08:59 Last Admin: 01/19/19 08:16 Dose: 10 mg Metformin HCl (Glucophage) 500 mg PO BID [facility] Stop: 03/16/19 21:29 Last Admin: 01/19/19 08:16 Dose: 500 mg Miscellaneous (Vancomycin Iv Per Pharmacy) 1 [facility] PRN PRN PRN Reason: PROTOCOL Stop: 03/17/19 08:59 Miscellaneous (Vte Chemical Prophylaxis Screen/ Admission) 1 [facility] PRN PRN PRN Reason: PROTOCOL Stop: 03/17/19 10:20 Miscellaneous (Probiotic Screen) 1 [facility] PRN PRN PRN Reason: PROTOCOL Stop: 03/17/19 15:16 Pantoprazole Sodium (Protonix) 40 mg PO QDAC [facility] Stop: 03/17/19 07:29 Last Admin: 01/19/19 06:46 Dose: 40 mg General: no acute distress, other (obese) HEENT: atraumatic, normocephalic, PERRLA, EOMI Neck: supple, no thyromegaly Cardiovascular: S1S2, regular Lungs: clear to auscultation bilaterally, clear to percussion Abdomen: soft, other (pendulous obese. RLQ there is wound draining pus, there is surrounding erythema.), no tender, no distended Extremities: no cyanosis, no clubbing, no edema Neurological: awake, alert, oriented Skin: intact - Procedures Procedures: Procedures Procedure Code Date EXCISION OF ESOPHAGOGASTRIC JUNCTION, ENDO, DIAGN [id number] 02/24/18 EXCISION OF STOMACH, PYLORUS, ENDO, DIAGN [id number] 02/24/18 Infectious Disease Assmt/Plan - Assessment Assessment: 1. Right lower quadrant abdominal abscess with cellulitis. 2. Morbid obesity with a BMI of 63. 3. Diabetes mellitus type 2. 4. Hypertension. 5. Suspect sleep apnea. - Plan Plan: Continue vanco IV and rocephin. Nutritional Asmnt/Malnutr-PDOC - Dietary Evaluation Malnutrition Findings (Please click <Entered> for more info): Nutritional Asmnt/Malnutrition Start: 01/16/19 15: 50 Text: Status: Complete Freq: Protocol: Document 01/16/19 15:50 CRISTIAN (Rec: 01/16/19 15:55 CRISTIAN [email or web address]) Nutritional Asmnt/Malnutrition Patient General Information Nutritional Screening High Risk Consult Diagnosis Cellulitis Lower Abdominal Pertinent Medical Hx/Surgical Hx HTN, DM Subjective Information Consult: Diabetic, Blood sugar during admission - 316 Pt is a 43-year-old female admitted on 01/15 c/o abdominal wall redness and pain x3 days. Spoke to AARON Collier, Pt ate 100 % at breakfast and lunch today . Pt was sleeping at time of visit. Will follow up with Pt as high risk to provide nutrition education for glucose control if needed. May want to consider calories restricted diet d/t BMI 62.73 (Morbidly Obese). HT: 52 WT: 343 LB (155.9 kg) ADJ BW: 92.42 kg BMI: 62.73 (Morbidly Obese) GI: Large, Round, Swelling, Red, Warm to Touch BM: Not noted I/O: 100/Not Noted Skin: Warm, Dry, Tight, Abscess on RT Lower Abdomen Carl: 18 Diet Order: [facility] Estimated Energy Needs: (Obese III, ADJ BW) 5121-9529 kcals (20-25 kcals/ kg) 74-83g Pro (0.8-0.9 g/kg) 0518-4757 ml (25-30 ml/kg) Current Diet Order/ Nutrition Support [facility] Pertinent Medications INS-SS, Synthroid, Glucophage, Protonix Pertinent Labs 01/15: Hgb/Hct 12.8/37.5, Na 135 , Potass 3.2, Glucose 316, POC Glucose (last 24 hours) 251, 210 Nutritional Hx/Data Height 1.57 m Height (Calculated Centimeters) 157.5 Current Weight (lbs) 155.582 kg Weight (Calculated Kilograms) 155.6 Weight (Calculated Grams) 834472.2 [place] Body Weight 50.1 kg % [place] Body Weight 311 Body Mass Index (BMI) 62.7 Weight Status Morbidly Obese GI Symptoms GI Symptoms None Last BM Not noted Skin Integrity/Comment: Warm, Dry, Tight, Abscess on RT Lower Abdomen Carl: 18 Current %PO Good (75-100%) Estimated Nutritional Goals BEE in Kcals: Adj wt of IBW Calories/Kcals/Kg 20-25 Kcals Calculated 8392-0987 Protein: Adj wt of IBW Protein g/k.8-0.9 Protein Calculated 74-83 Fluid: ml 5111-2375 ml (25-30 ml/kg) Nutritional Problem 1. Problem Problem Altered nutrition related labs Etiology r/t endocrine dysfunction Signs/Symptoms: aeb lab result Glucose 316, POC Glucose (last 24 hours) 251, 210 Intervention/Recommendation Comments 1.Continue with [facility] diet as ordered. 2.Consider calories restricted diet. Expected Outcomes/Goals Expected Outcomes/Goals 1.PO intake to meet 75% of nutritional needs. 2.Monitor PO intake, wt, skin integrity, and nutrition related labs to trend WNL. 3.F/U as high risk in 2-3 days , 01/18-01/19
[2019-01-19 12:19] LABS: ANION GAP 12.8 (7.0-16.0); BUN - UREA NITROGEN 9 mg/dL (7-25); CALCIUM SERUM 9.5 mg/dL (8.6-10.3); CARBON DIOXIDE 23.8 mEq/L (21.0-31.0); CHLORIDE 99 mEq/L (98-107); CREATININE - SERUM 0.6 mg/dL (0.6-1.2); GFR AFRICAN-AMERICAN > 60.0 ml/min (>90); GFR NON AFRICAN-AMERICAN > 60.0 ml/min; GLUCOSE 174 mg/dL (70-105); POTASSIUM SERUM 3.6 mEq/L (3.5-5.1); SODIUM SERUM 132 mEq/L (136-145)
[2019-01-19 12:59] LABS: % BASOPHILS 0.7 % (0.0-2.0); % LYMPHOCYTES 32.9 % (20.0-50.0); % MONOCYTES 4.5 % (2.0-10.0); % NEUTROPHILS 59.9 % (40.0-80.0); BASOPHILE ABSOLUTE 0.1 Th/cumm (0-0.2); EOSINOPHILE ABSOLUTE 0.2 Th/cmm (0.1-0.4); HEMATOCRIT 39.6 % (41.0-60); HEMOGLOBIN 13.2 gm/dL (12-16); MEAN CELL VOLUME 85.2 fl (81-100); MEAN CORPUSCULAR HEMOGLOBIN 28.4 pg (27.0-31.0); MEAN CORPUSCULAR HGB CONC 33.4 pg (28.0-36.0); MONOCYTE ABSOLUTE 0.4 Th/cmm (0.3-1.0); NEUTROPHILE ABSOLUTE 5.3 Th/cmm (1.8-8.0); PLATELET COUNT 395 Th/cmm (150-400); RED BLOOD COUNT 4.65 Mil/cmm (3.80-5.10); RED CELL DISTRIBUTION WIDTH 12.6 % (11.5-20.0)
[2019-01-19] MEDS: Acetaminophen 500 MG TAB PO PRN (13:25)
[2019-01-19] MEDS: cefTRIAXone 2 GM in Sodium Chloride 0.9% 100 ML IV SCH (15:25)
--- NOTE | 2019-01-19 21:41 | General Progress Note ---
Subjective - Review of Systems Service Date: 01/19/19 Subjective: patient doing fine diarrhea better afebrile Objective - Results Result Diagrams: 01/19/19 12:00 01/19/19 12:00 Recent Labs: Laboratory Last Values WBC 9.0 Th/cmm (4.8-10.8) 01/19/19 12:00 RBC 4.65 Mil/cmm (3.80-5.10) 01/19/19 12:00 Hgb 13.2 gm/dL (12-16) 01/19/19 12:00 Hct 39.6 % (41.0-60) L 01/19/19 12:00 MCV 85.2 fl (81-100) 01/19/19 12:00 MCH 28.4 pg (27.0-31.0) 01/19/19 12:00 MCHC Differential 33.4 pg (28.0-36.0) 01/19/19 12:00 RDW 12.6 % (11.5-20.0) 01/19/19 12:00 Plt Count 395 Th/cmm (150-400) 01/19/19 12:00 MPV 8.2 fl 01/19/19 12:00 Neutrophils % 59.9 % (40.0-80.0) 01/19/19 12:00 Lymphocytes % 32.9 % (20.0-50.0) 01/19/19 12:00 Monocytes % 4.5 % (2.0-10.0) 01/19/19 12:00 Eosinophils % 2.0 % (0.0-5.0) 01/19/19 12:00 Basophils % 0.7 % (0.0-2.0) 01/19/19 12:00 PT 10.0 SECONDS (9.5-11.5) 01/16/19 21:04 INR 0.96 (0.5-1.4) 01/16/19 21:04 PTT (Actin FS) 25.2 SECONDS (26.0-38.0) L 01/16/19 21:04 Sodium 132 mEq/L (136-145) L 01/19/19 12:00 Potassium 3.6 mEq/L (3.5-5.1) 01/19/19 12:00 Chloride 99 mEq/L (98-107) 01/19/19 12:00 Carbon Dioxide 23.8 mEq/L (21.0-31.0) 01/19/19 12:00 Anion Gap 12.8 (7.0-16.0) 01/19/19 12:00 BUN 9 mg/dL (7-25) 01/19/19 12:00 Creatinine 0.6 mg/dL (0.6-1.2) 01/19/19 12:00 Est GFR ( Amer) > 60.0 ml/min (>90) 01/19/19 12:00 Est GFR (Non-Af Amer) > 60.0 ml/min 01/19/19 12:00 BUN/Creatinine Ratio 15.0 01/19/19 12:00 Glucose 174 mg/dL (70-105) H 01/19/19 12:00 POC Glucose 176 MG/DL (70 - 105) H 01/19/19 16:31 Calcium 9.5 mg/dL (8.6-10.3) 01/19/19 12:00 Magnesium 1.9 mg/dL (1.9-2.7) 01/15/19 19:30 Total Bilirubin 0.4 mg/dL (0.3-1.0) 01/16/19 21:04 AST 21 U/L (13-39) 01/16/19 21:04 ALT 25 U/L (7-52) 01/16/19 21:04 Alkaline Phosphatase 69 U/L (34-104) 01/16/19 21:04 Total Protein 6.3 gm/dL (6.0-8.3) 01/16/19 21:04 Albumin 3.5 gm/dL (3.7-5.3) L 01/16/19 21:04 Globulin 2.8 gm/dL 01/16/19 21:04 Albumin/Globulin Ratio 1.3 (1.0-1.8) 01/16/19 21:04 Urine Source RANDOM 01/15/19 20:30 Urine Color YELLOW 01/15/19 20:30 Urine Clarity CLEAR (CLEAR) 01/15/19 20:30 Urine pH 6.0 (4.6 - 8.0) 01/15/19 20:30 Ur Specific [place] 1.020 (1.005-1.030) 01/15/19 20:30 Urine Protein NEGATIVE mg/dL (NEGATIVE) 01/15/19 20:30 Urine Glucose (UA) >=1000 mg/dL (NEGATIVE) H 01/15/19 20:30 Urine Ketones NEGATIVE mg/dL (NEGATIVE) 01/15/19 20:30 Urine Blood NEGATIVE (NEGATIVE) 01/15/19 20:30 Urine Nitrate NEGATIVE (NEGATIVE) 01/15/19 20:30 Urine Bilirubin NEGATIVE (NEGATIVE) 01/15/19 20:30 Urine Urobilinogen 1.0 E.U./dL (0.2 - 1.0) 01/15/19 20:30 Ur Leukocyte Esterase NEGATIVE (NEGATIVE) 01/15/19 20:30 Urine RBC 0-2 /hpf (0-5) 01/15/19 20:30 Urine WBC 0-2 /hpf (0-5) 01/15/19 20:30 Ur Epithelial Cells FEW /lpf (FEW) 01/15/19 20:30 Urine Bacteria FEW /hpf (NONE SEEN) 01/15/19 20:30 Vancomycin Trough 10.4 ug/mL (5-10) H 01/19/19 12:00 - Physical Exam Vitals and I&O: Vital Signs Temp 98.2 F 01/19/19 20:23 Pulse 81 01/19/19 20:23 Resp 18 01/19/19 20:23 BP 116/54 01/19/19 20:23 Pulse Ox 93 01/19/19 20:23 Intake & Output 01/19/19 01/19/19 01/20/19 06:59 18:59 06:59 Intake Total 500 1480 Balance 500 1480 Weight (lbs) 156.943 kg Intake: Intake, IV Amount 500 Vancomycin HCl 1.25 gm In 500 Sodium Chloride 0.9% 250 ml @ 165 mls/hr IV Q8HR [facility] Rx#:[id number] Oral 1480 Other: # Voids 3 Weight Source Bedscale Active Medications: Current Medications Acetaminophen (Tylenol Extra Strength) 500 mg PO Q4H PRN PRN Reason: Pain (Moderate) Stop: 03/16/19 22:38 Last Admin: 01/19/19 13:25 Dose: 500 mg Heparin Sodium (Porcine) (Heparin) 5,000 units SUBQ Q12H [facility] Stop: 03/17/19 20:59 Last Admin: 01/19/19 21:15 Dose: 5,000 units Ceftriaxone Sodium 2 gm/ (Sodium Chloride) 100 mls @ 100 mls/hr IV Q24H [facility] Stop: 03/19/19 15:44 Last Admin: 01/19/19 15:25 Dose: 100 mls/hr Vancomycin HCl 1.25 gm/ Sodium (Chloride) 250 mls @ 165 mls/hr IV Q8H [facility] Stop: 03/21/19 00:00 Insulin Human Lispro (Humalog Insulin Sliding Scale) 0 units SUBQ ACHS [facility]; Protocol Stop: 03/17/19 07:29 Last Admin: 01/19/19 21:20 Dose: 4 units Lactobacillus Rhamnosus (Culturelle 15b) 1 each PO BID [facility] Stop: 03/19/19 16:59 Last Admin: 01/19/19 17:17 Dose: 1 each Levothyroxine Sodium (Synthroid) 0.088 mg PO QDAC [facility] Stop: 03/17/19 07:29 Last Admin: 01/19/19 06:46 Dose: 0.088 mg Loratadine (Claritin) 10 mg PO DAILY [facility] Stop: 03/17/19 08:59 Last Admin: 01/19/19 08:16 Dose: 10 mg Metformin HCl (Glucophage) 500 mg PO BID [facility] Stop: 03/16/19 21:29 Last Admin: 01/19/19 17:17 Dose: 500 mg Miscellaneous (Vancomycin Iv Per Pharmacy) 1 [facility] PRN PRN PRN Reason: PROTOCOL Stop: 03/17/19 08:59 Miscellaneous (Vte Chemical Prophylaxis Screen/ Admission) 1 [facility] PRN PRN PRN Reason: PROTOCOL Stop: 03/17/19 10:20 Miscellaneous (Probiotic Screen) 1 [facility] PRN PRN PRN Reason: PROTOCOL Stop: 03/17/19 15:16 Pantoprazole Sodium (Protonix) 40 mg PO QDAC [facility] Stop: 03/17/19 07:29 Last Admin: 01/19/19 06:46 Dose: 40 mg Cardiovascular: Regular rate Lungs: Clear to auscultation Skin: Other (ABD wall erythema slightly better) - Procedures Procedures: Procedures Procedure Code Date EXCISION OF ESOPHAGOGASTRIC JUNCTION, ENDO, DIAGN [id number] 02/24/18 EXCISION OF STOMACH, PYLORUS, ENDO, DIAGN [id number] 02/24/18 Assessment/Plan - Assessment Assessment: ABD WALL CELLULITS DM II Diarrhea MORBID OBESITY - Plan Plan: Stool for c diff pending Diarrhea better Continue IV Antibiotics Local wound care ID On board Nutritional Asmnt/Malnutr-PDOC - Dietary Evaluation Malnutrition Findings (Please click <Entered> for more info): Nutritional Asmnt/Malnutrition Start: 01/16/19 15: 50 Text: Status: Complete Freq: Protocol: Document 01/16/19 15:50 CRISTIAN (Rec: 01/16/19 15:55 CRISTIAN [email or web address]) Nutritional Asmnt/Malnutrition Patient General Information Nutritional Screening High Risk Consult Diagnosis Cellulitis Lower Abdominal Pertinent Medical Hx/Surgical Hx HTN, DM Subjective Information Consult: Diabetic, Blood sugar during admission - 316 Pt is a 43-year-old female admitted on 01/15 c/o abdominal wall redness and pain x3 days. Spoke to AARON Collier, Pt ate 100 % at breakfast and lunch today . Pt was sleeping at time of visit. Will follow up with Pt as high risk to provide nutrition education for glucose control if needed. May want to consider calories restricted diet d/t BMI 62.73 (Morbidly Obese). HT: 52 WT: 343 LB (155.9 kg) ADJ BW: 92.42 kg BMI: 62.73 (Morbidly Obese) GI: Large, Round, Swelling, Red, Warm to Touch BM: Not noted I/O: 100/Not Noted Skin: Warm, Dry, Tight, Abscess on RT Lower Abdomen Carl: 18 Diet Order: [facility] [place] Estimated Energy Needs: (Obese III, ADJ BW) 0532-2768 kcals (20-25 kcals/ kg) 74-83g Pro (0.8-0.9 g/kg) 3895-3652 ml (25-30 ml/kg) Current Diet Order/ Nutrition Support [facility] [place] Pertinent Medications INS-SS, Synthroid, Glucophage, Protonix Pertinent Labs 01/15: Hgb/Hct 12.8/37.5, Na 135 , Potass 3.2, Glucose 316, POC Glucose (last 24 hours) 251, 210 Nutritional Hx/Data Height 1.57 m Height (Calculated Centimeters) 157.5 Current Weight (lbs) 155.582 kg Weight (Calculated Kilograms) 155.6 Weight (Calculated Grams) 649384.2 [place] Body Weight 50.1 kg % [place] Body Weight 311 Body Mass Index (BMI) 62.7 Weight Status Morbidly Obese GI Symptoms GI Symptoms None Last BM Not noted Skin Integrity/Comment: Warm, Dry, Tight, Abscess on RT Lower Abdomen Carl: 18 Current %PO Good (75-100%) Estimated Nutritional Goals BEE in Kcals: Adj wt of IBW Calories/Kcals/Kg 20-25 Kcals Calculated 2992-7280 Protein: Adj wt of IBW Protein g/k.8-0.9 Protein Calculated 74-83 Fluid: ml 3947-4825 ml (25-30 ml/kg) Nutritional Problem 1. Problem Problem Altered nutrition related labs Etiology r/t endocrine dysfunction Signs/Symptoms: aeb lab result Glucose 316, POC Glucose (last 24 hours) 251, 210 Intervention/Recommendation Comments 1.Continue with [facility] [place] diet as ordered. 2.Consider calories restricted diet. Expected Outcomes/Goals Expected Outcomes/Goals 1.PO intake to meet 75% of nutritional needs. 2.Monitor PO intake, wt, skin integrity, and nutrition related labs to trend WNL. 3.F/U as high risk in 2-3 days , 01/18-01/19
[2019-01-20] MEDS: INSULIN LISPRO SLIDING SCALE 100 UNITS/ML UNIT SUBQ SCH ×4 (06:57→20:38)
[2019-01-20] MEDS: Levothyroxine 0.088 Mg Tab PO SCH (07:00)
[2019-01-20] MEDS: Pantoprazole 40 mg EC Tab PO SCH (07:01)
[2019-01-20] MEDS: Acetaminophen 500 MG TAB PO PRN (07:06)
[2019-01-20] MEDS: Heparin Sod 5,000Units/ML 5,000 UNITS/ML VIAL SUBQ SCH ×2 (08:33→20:38)
[2019-01-20] MEDS: Lactobacillus Rhamnosus GG 15 Billion CFU CAP.SPRINK PO SCH ×2 (08:33→17:01)
[2019-01-20] MEDS: cefTRIAXone 2 GM in Sodium Chloride 0.9% 100 ML IV SCH (15:10)
--- NOTE | 2019-01-20 18:11 | General Progress Note ---
Subjective - Review of Systems Service Date: 01/20/19 Subjective: patient doing fine diarrhea better afebrile Objective - Results Result Diagrams: 01/19/19 12:00 01/19/19 12:00 Recent Labs: Laboratory Last Values WBC 9.0 Th/cmm (4.8-10.8) 01/19/19 12:00 RBC 4.65 Mil/cmm (3.80-5.10) 01/19/19 12:00 Hgb 13.2 gm/dL (12-16) 01/19/19 12:00 Hct 39.6 % (41.0-60) L 01/19/19 12:00 MCV 85.2 fl (81-100) 01/19/19 12:00 MCH 28.4 pg (27.0-31.0) 01/19/19 12:00 MCHC Differential 33.4 pg (28.0-36.0) 01/19/19 12:00 RDW 12.6 % (11.5-20.0) 01/19/19 12:00 Plt Count 395 Th/cmm (150-400) 01/19/19 12:00 MPV 8.2 fl 01/19/19 12:00 Neutrophils % 59.9 % (40.0-80.0) 01/19/19 12:00 Lymphocytes % 32.9 % (20.0-50.0) 01/19/19 12:00 Monocytes % 4.5 % (2.0-10.0) 01/19/19 12:00 Eosinophils % 2.0 % (0.0-5.0) 01/19/19 12:00 Basophils % 0.7 % (0.0-2.0) 01/19/19 12:00 PT 10.0 SECONDS (9.5-11.5) 01/16/19 21:04 INR 0.96 (0.5-1.4) 01/16/19 21:04 PTT (Actin FS) 25.2 SECONDS (26.0-38.0) L 01/16/19 21:04 Sodium 132 mEq/L (136-145) L 01/19/19 12:00 Potassium 3.6 mEq/L (3.5-5.1) 01/19/19 12:00 Chloride 99 mEq/L (98-107) 01/19/19 12:00 Carbon Dioxide 23.8 mEq/L (21.0-31.0) 01/19/19 12:00 Anion Gap 12.8 (7.0-16.0) 01/19/19 12:00 BUN 9 mg/dL (7-25) 01/19/19 12:00 Creatinine 0.6 mg/dL (0.6-1.2) 01/19/19 12:00 Est GFR ( Amer) > 60.0 ml/min (>90) 01/19/19 12:00 Est GFR (Non-Af Amer) > 60.0 ml/min 01/19/19 12:00 BUN/Creatinine Ratio 15.0 01/19/19 12:00 Glucose 174 mg/dL (70-105) H 01/19/19 12:00 POC Glucose 135 MG/DL (70 - 105) H 01/20/19 16:57 Calcium 9.5 mg/dL (8.6-10.3) 01/19/19 12:00 Magnesium 1.9 mg/dL (1.9-2.7) 01/15/19 19:30 Total Bilirubin 0.4 mg/dL (0.3-1.0) 01/16/19 21:04 AST 21 U/L (13-39) 01/16/19 21:04 ALT 25 U/L (7-52) 01/16/19 21:04 Alkaline Phosphatase 69 U/L (34-104) 01/16/19 21:04 Total Protein 6.3 gm/dL (6.0-8.3) 01/16/19 21:04 Albumin 3.5 gm/dL (3.7-5.3) L 01/16/19 21:04 Globulin 2.8 gm/dL 01/16/19 21:04 Albumin/Globulin Ratio 1.3 (1.0-1.8) 01/16/19 21:04 Urine Source RANDOM 01/15/19 20:30 Urine Color YELLOW 01/15/19 20:30 Urine Clarity CLEAR (CLEAR) 01/15/19 20:30 Urine pH 6.0 (4.6 - 8.0) 01/15/19 20:30 Ur Specific [place] 1.020 (1.005-1.030) 01/15/19 20:30 Urine Protein NEGATIVE mg/dL (NEGATIVE) 01/15/19 20:30 Urine Glucose (UA) >=1000 mg/dL (NEGATIVE) H 01/15/19 20:30 Urine Ketones NEGATIVE mg/dL (NEGATIVE) 01/15/19 20:30 Urine Blood NEGATIVE (NEGATIVE) 01/15/19 20:30 Urine Nitrate NEGATIVE (NEGATIVE) 01/15/19 20:30 Urine Bilirubin NEGATIVE (NEGATIVE) 01/15/19 20:30 Urine Urobilinogen 1.0 E.U./dL (0.2 - 1.0) 01/15/19 20:30 Ur Leukocyte Esterase NEGATIVE (NEGATIVE) 01/15/19 20:30 Urine RBC 0-2 /hpf (0-5) 01/15/19 20:30 Urine WBC 0-2 /hpf (0-5) 01/15/19 20:30 Ur Epithelial Cells FEW /lpf (FEW) 01/15/19 20:30 Urine Bacteria FEW /hpf (NONE SEEN) 01/15/19 20:30 Vancomycin Trough 10.4 ug/mL (5-10) H 01/19/19 12:00 - Physical Exam Vitals and I&O: Vital Signs Temp 97.6 F 01/20/19 16:00 Pulse 79 01/20/19 16:00 Resp 18 01/20/19 16:00 BP 122/59 01/20/19 16:00 Pulse Ox 97 01/20/19 16:00 Intake & Output 01/19/19 01/20/19 01/20/19 18:59 06:59 18:59 Intake Total 6799 015 2381 Balance 7749 188 9530 Weight (lbs) 156.943 kg 156.943 kg 156.943 kg Intake: Intake, IV Amount 100 250 250 Vancomycin HCl 1.25 gm In 250 250 Sodium Chloride 0.9% 250 ml @ 165 mls/hr IV Q8H [facility] Rx#:[id number] cefTRIAXone 2 gm In 100 Sodium Chloride 0.9% 100 ml @ 100 mls/hr IV Q24H [facility] Rx#:[id number] Oral [id number] [id number] Other: # Voids 3 2 4 # Bowel Movements 0 1 Weight Source Bedscale Bedscale Bedscale Active Medications: Current Medications Acetaminophen (Tylenol Extra Strength) 500 mg PO Q4H PRN PRN Reason: Pain (Moderate) Stop: 03/16/19 22:38 Last Admin: 01/20/19 07:06 Dose: 500 mg Heparin Sodium (Porcine) (Heparin) 5,000 units SUBQ Q12H [facility] Stop: 03/17/19 20:59 Last Admin: 01/20/19 08:33 Dose: 5,000 units Ceftriaxone Sodium 2 gm/ (Sodium Chloride) 100 mls @ 100 mls/hr IV Q24H [facility] Stop: 03/19/19 15:44 Last Admin: 01/20/19 15:10 Dose: 100 mls/hr Vancomycin HCl 1.25 gm/ Sodium (Chloride) 250 mls @ 165 mls/hr IV Q8H [facility] Stop: 03/21/19 00:00 Last Admin: 01/20/19 15:38 Dose: 165 mls/hr Insulin Human Lispro (Humalog Insulin Sliding Scale) 0 units SUBQ ACHS [facility]; Protocol Stop: 03/17/19 07:29 Last Admin: 01/20/19 17:01 Dose: Not Given Lactobacillus Rhamnosus (Culturelle 15b) 1 each PO BID [facility] Stop: 03/19/19 16:59 Last Admin: 01/20/19 17:01 Dose: 1 each Levothyroxine Sodium (Synthroid) 0.088 mg PO QDAC [facility] Stop: 03/17/19 07:29 Last Admin: 01/20/19 07:00 Dose: 0.088 mg Loratadine (Claritin) 10 mg PO DAILY [facility] Stop: 03/17/19 08:59 Last Admin: 01/20/19 08:33 Dose: 10 mg Metformin HCl (Glucophage) 500 mg PO BID [facility] Stop: 03/16/19 21:29 Last Admin: 01/20/19 17:01 Dose: 500 mg Miscellaneous (Vancomycin Iv Per Pharmacy) 1 ea [facility] PRN PRN PRN Reason: PROTOCOL Stop: 03/17/19 08:59 Miscellaneous (Vte Chemical Prophylaxis Screen/ Admission) 1 ea [facility] PRN PRN PRN Reason: PROTOCOL Stop: 03/17/19 10:20 Miscellaneous (Probiotic Screen) 1 ea MC PRN PRN PRN Reason: PROTOCOL Stop: 03/17/19 15:16 Pantoprazole Sodium (Protonix) 40 mg PO QDAC [facility] Stop: 03/17/19 07:29 Last Admin: 01/20/19 07:01 Dose: 40 mg Cardiovascular: Regular rate Lungs: Clear to auscultation Skin: Other (ABD wall erythema slightly better) - Procedures Procedures: Procedures Procedure Code Date EXCISION OF ESOPHAGOGASTRIC JUNCTION, ENDO, DIAGN [id number] 02/24/18 EXCISION OF STOMACH, PYLORUS, ENDO, DIAGN [id number] 02/24/18 Assessment/Plan - Assessment Assessment: ABD WALL CELLULITS DM II Diarrhea MORBID OBESITY - Plan Plan: Stool for c diff pending Diarrhea better Continue IV Antibiotics Local wound care ID On board Nutritional Asmnt/Malnutr-PDOC - Dietary Evaluation Malnutrition Findings (Please click <Entered> for more info): Nutritional Asmnt/Malnutrition Start: 01/16/19 15: 50 Text: Status: Complete Freq: Protocol: Document 01/16/19 15:50 CRISTIAN (Rec: 01/16/19 15:55 CRISTIAN [email or web address]) Nutritional Asmnt/Malnutrition Patient General Information Nutritional Screening High Risk Consult Diagnosis Cellulitis Lower Abdominal Pertinent Medical Hx/Surgical Hx HTN, DM Subjective Information Consult: Diabetic, Blood sugar during admission - 316 Pt is a 43-year-old female admitted on 01/15 c/o abdominal wall redness and pain x3 days. Spoke to AARON Collier, Pt ate 100 % at breakfast and lunch today . Pt was sleeping at time of visit. Will follow up with Pt as high risk to provide nutrition education for glucose control if needed. May want to consider calories restricted diet d/t BMI 62.73 (Morbidly Obese). HT: 52 WT: 343 LB (155.9 kg) ADJ BW: 92.42 kg BMI: 62.73 (Morbidly Obese) GI: Large, Round, Swelling, Red, Warm to Touch BM: Not noted I/O: 100/Not Noted Skin: Warm, Dry, Tight, Abscess on RT Lower Abdomen Carl: 18 Diet Order: [facility] Estimated Energy Needs: (Obese III, ADJ BW) 3342-3558 kcals (20-25 kcals/ kg) 74-83g Pro (0.8-0.9 g/kg) 6777-1558 ml (25-30 ml/kg) Current Diet Order/ Nutrition Support [facility] Pertinent Medications INS-SS, Synthroid, Glucophage, Protonix Pertinent Labs 01/15: Hgb/Hct 12.8/37.5, Na 135 , Potass 3.2, Glucose 316, POC Glucose (last 24 hours) 251, 210 Nutritional Hx/Data Height 1.57 m Height (Calculated Centimeters) 157.5 Current Weight (lbs) 155.582 kg Weight (Calculated Kilograms) 155.6 Weight (Calculated Grams) 656938.2 [place] Body Weight 50.1 kg % [place] Body Weight 311 Body Mass Index (BMI) 62.7 Weight Status Morbidly Obese GI Symptoms GI Symptoms None Last BM Not noted Skin Integrity/Comment: Warm, Dry, Tight, Abscess on RT Lower Abdomen Carl: 18 Current %PO Good (75-100%) Estimated Nutritional Goals BEE in Kcals: Adj wt of IBW Calories/Kcals/Kg 20-25 Kcals Calculated 7146-6985 Protein: Adj wt of IBW Protein g/k.8-0.9 Protein Calculated 74-83 Fluid: ml 6011-8659 ml (25-30 ml/kg) Nutritional Problem 1. Problem Problem Altered nutrition related labs Etiology r/t endocrine dysfunction Signs/Symptoms: aeb lab result Glucose 316, POC Glucose (last 24 hours) 251, 210 Intervention/Recommendation Comments 1.Continue with [facility] diet as ordered. 2.Consider calories restricted diet. Expected Outcomes/Goals Expected Outcomes/Goals 1.PO intake to meet 75% of nutritional needs. 2.Monitor PO intake, wt, skin integrity, and nutrition related labs to trend WNL. 3.F/U as high risk in 2-3 days , 01/18-01/19
--- NOTE | 2019-01-21 02:52 | Infectious Disease Prog Note ---
Infectious Disease Subjective - Review of Systems Service Date: 01/20/19 Subjective: There is no new change, no fever. wound is draining pus Infectious Disease Objective - Results Result Diagrams: 01/19/19 12:00 01/19/19 12:00 Recent Labs: Laboratory Last Values WBC 9.0 Th/cmm (4.8-10.8) 01/19/19 12:00 RBC 4.65 Mil/cmm (3.80-5.10) 01/19/19 12:00 Hgb 13.2 gm/dL (12-16) 01/19/19 12:00 Hct 39.6 % (41.0-60) L 01/19/19 12:00 MCV 85.2 fl (81-100) 01/19/19 12:00 MCH 28.4 pg (27.0-31.0) 01/19/19 12:00 MCHC Differential 33.4 pg (28.0-36.0) 01/19/19 12:00 RDW 12.6 % (11.5-20.0) 01/19/19 12:00 Plt Count 395 Th/cmm (150-400) 01/19/19 12:00 MPV 8.2 fl 01/19/19 12:00 Neutrophils % 59.9 % (40.0-80.0) 01/19/19 12:00 Lymphocytes % 32.9 % (20.0-50.0) 01/19/19 12:00 Monocytes % 4.5 % (2.0-10.0) 01/19/19 12:00 Eosinophils % 2.0 % (0.0-5.0) 01/19/19 12:00 Basophils % 0.7 % (0.0-2.0) 01/19/19 12:00 PT 10.0 SECONDS (9.5-11.5) 01/16/19 21:04 INR 0.96 (0.5-1.4) 01/16/19 21:04 PTT (Actin FS) 25.2 SECONDS (26.0-38.0) L 01/16/19 21:04 Sodium 132 mEq/L (136-145) L 01/19/19 12:00 Potassium 3.6 mEq/L (3.5-5.1) 01/19/19 12:00 Chloride 99 mEq/L (98-107) 01/19/19 12:00 Carbon Dioxide 23.8 mEq/L (21.0-31.0) 01/19/19 12:00 Anion Gap 12.8 (7.0-16.0) 01/19/19 12:00 BUN 9 mg/dL (7-25) 01/19/19 12:00 Creatinine 0.6 mg/dL (0.6-1.2) 01/19/19 12:00 Est GFR ( Amer) > 60.0 ml/min (>90) 01/19/19 12:00 Est GFR (Non-Af Amer) > 60.0 ml/min 01/19/19 12:00 BUN/Creatinine Ratio 15.0 01/19/19 12:00 Glucose 174 mg/dL (70-105) H 01/19/19 12:00 POC Glucose 154 MG/DL (70 - 105) H 01/20/19 20:30 Calcium 9.5 mg/dL (8.6-10.3) 01/19/19 12:00 Magnesium 1.9 mg/dL (1.9-2.7) 01/15/19 19:30 Total Bilirubin 0.4 mg/dL (0.3-1.0) 01/16/19 21:04 AST 21 U/L (13-39) 01/16/19 21:04 ALT 25 U/L (7-52) 01/16/19 21:04 Alkaline Phosphatase 69 U/L (34-104) 01/16/19 21:04 Total Protein 6.3 gm/dL (6.0-8.3) 01/16/19 21:04 Albumin 3.5 gm/dL (3.7-5.3) L 01/16/19 21:04 Globulin 2.8 gm/dL 01/16/19 21:04 Albumin/Globulin Ratio 1.3 (1.0-1.8) 01/16/19 21:04 Urine Source RANDOM 01/15/19 20:30 Urine Color YELLOW 01/15/19 20:30 Urine Clarity CLEAR (CLEAR) 01/15/19 20:30 Urine pH 6.0 (4.6 - 8.0) 01/15/19 20:30 Ur Specific [place] 1.020 (1.005-1.030) 01/15/19 20:30 Urine Protein NEGATIVE mg/dL (NEGATIVE) 01/15/19 20:30 Urine Glucose (UA) >=1000 mg/dL (NEGATIVE) H 01/15/19 20:30 Urine Ketones NEGATIVE mg/dL (NEGATIVE) 01/15/19 20:30 Urine Blood NEGATIVE (NEGATIVE) 01/15/19 20:30 Urine Nitrate NEGATIVE (NEGATIVE) 01/15/19 20:30 Urine Bilirubin NEGATIVE (NEGATIVE) 01/15/19 20:30 Urine Urobilinogen 1.0 E.U./dL (0.2 - 1.0) 01/15/19 20:30 Ur Leukocyte Esterase NEGATIVE (NEGATIVE) 01/15/19 20:30 Urine RBC 0-2 /hpf (0-5) 01/15/19 20:30 Urine WBC 0-2 /hpf (0-5) 01/15/19 20:30 Ur Epithelial Cells FEW /lpf (FEW) 01/15/19 20:30 Urine Bacteria FEW /hpf (NONE SEEN) 01/15/19 20:30 Vancomycin Trough 10.4 ug/mL (5-10) H 01/19/19 12:00 - Physical Exam Vitals and I&O: Vital Signs Temp 97 F 01/21/19 00:00 Pulse 75 01/21/19 00:00 Resp 20 01/21/19 00:00 BP 104/53 01/21/19 00:00 Pulse Ox 92 01/21/19 00:00 Intake & Output 01/20/19 01/20/19 01/21/19 06:59 18:59 06:59 Intake Total 490 1900 Balance 490 1900 Weight (lbs) 156.943 kg 156.943 kg Intake: Intake, IV Amount 250 500 Vancomycin HCl 1.25 gm In 250 500 Sodium Chloride 0.9% 250 ml @ 165 mls/hr IV Q8H [facility] Rx#:[id number] Oral 240 1400 Other: # Voids 2 4 # Bowel Movements 0 1 Weight Source Bedscale Bedscale Active Medications: Current Medications Acetaminophen (Tylenol Extra Strength) 500 mg PO Q4H PRN PRN Reason: Pain (Moderate) Stop: 03/16/19 22:38 Last Admin: 01/20/19 07:06 Dose: 500 mg Heparin Sodium (Porcine) (Heparin) 5,000 units SUBQ Q12H [facility] Stop: 03/17/19 20:59 Last Admin: 01/20/19 20:38 Dose: 5,000 units Ceftriaxone Sodium 2 gm/ (Sodium Chloride) 100 mls @ 100 mls/hr IV Q24H [facility] Stop: 03/19/19 15:44 Last Admin: 01/20/19 15:10 Dose: 100 mls/hr Vancomycin HCl 1.25 gm/ Sodium (Chloride) 250 mls @ 165 mls/hr IV Q8H [facility] Stop: 03/21/19 00:00 Last Admin: 01/21/19 00:47 Dose: 165 mls/hr Insulin Human Lispro (Humalog Insulin Sliding Scale) 0 units SUBQ ACHS [facility]; Protocol Stop: 03/17/19 07:29 Last Admin: 01/20/19 20:38 Dose: 3 units Lactobacillus Rhamnosus (Culturelle 15b) 1 each PO BID [facility] Stop: 03/19/19 16:59 Last Admin: 01/20/19 17:01 Dose: 1 each Levothyroxine Sodium (Synthroid) 0.088 mg PO QDAC [facility] Stop: 03/17/19 07:29 Last Admin: 01/20/19 07:00 Dose: 0.088 mg Loratadine (Claritin) 10 mg PO DAILY [facility] Stop: 03/17/19 08:59 Last Admin: 01/20/19 08:33 Dose: 10 mg Metformin HCl (Glucophage) 500 mg PO BID [facility] Stop: 03/16/19 21:29 Last Admin: 01/20/19 17:01 Dose: 500 mg Miscellaneous (Vancomycin Iv Per Pharmacy) 1 ea PRN PRN PRN Reason: PROTOCOL Stop: 03/17/19 08:59 Miscellaneous (Vte Chemical Prophylaxis Screen/ Admission) 1 ea PRN PRN PRN Reason: PROTOCOL Stop: 03/17/19 10:20 Miscellaneous (Probiotic Screen) 1 ea PRN PRN PRN Reason: PROTOCOL Stop: 03/17/19 15:16 Pantoprazole Sodium (Protonix) 40 mg PO QDAC [facility] Stop: 03/17/19 07:29 Last Admin: 01/20/19 07:01 Dose: 40 mg General: no acute distress, other (obese) HEENT: atraumatic, normocephalic, PERRLA, EOMI Neck: supple, no thyromegaly Cardiovascular: S1S2, regular Lungs: clear to auscultation bilaterally, clear to percussion Abdomen: soft, other (draining pus from RLQ wound with surrounding erythema), no tender, no distended Extremities: no cyanosis, no clubbing, no edema Neurological: awake, alert, oriented - Procedures Procedures: Procedures Procedure Code Date EXCISION OF ESOPHAGOGASTRIC JUNCTION, ENDO, DIAGN [id number] 02/24/18 EXCISION OF STOMACH, PYLORUS, ENDO, DIAGN [id number] 02/24/18 Infectious Disease Assmt/Plan - Assessment Assessment: 1. Right lower quadrant abdominal abscess with cellulitis. 2. Morbid obesity with a BMI of 63. 3. Diabetes mellitus type 2. 4. Hypertension. 5. Suspect sleep apnea. - Plan Plan: Continue rocephin. ALCIDES koch Nutritional Asmnt/Malnutr-PDOC - Dietary Evaluation Malnutrition Findings (Please click <Entered> for more info): Nutritional Asmnt/Malnutrition Start: 01/16/19 15: 50 Text: Status: Complete Freq: Protocol: Document 01/16/19 15:50 CRISTIAN (Rec: 01/16/19 15:55 CRISTIAN [email or web address]) Nutritional Asmnt/Malnutrition Patient General Information Nutritional Screening High Risk Consult Diagnosis Cellulitis Lower Abdominal Pertinent Medical Hx/Surgical Hx HTN, DM Subjective Information Consult: Diabetic, Blood sugar during admission - 316 Pt is a 43-year-old female admitted on 01/15 c/o abdominal wall redness and pain x3 days. Spoke to AARON Collier, Pt ate 100 % at breakfast and lunch today . Pt was sleeping at time of visit. Will follow up with Pt as high risk to provide nutrition education for glucose control if needed. May want to consider calories restricted diet d/t BMI 62.73 (Morbidly Obese). HT: 52 WT: 343 LB (155.9 kg) ADJ BW: 92.42 kg BMI: 62.73 (Morbidly Obese) GI: Large, Round, Swelling, Red, Warm to Touch BM: Not noted I/O: 100/Not Noted Skin: Warm, Dry, Tight, Abscess on RT Lower Abdomen Carl: 18 Diet Order: [facility] Estimated Energy Needs: (Obese III, ADJ BW) 8820-8776 kcals (20-25 kcals/ kg) 74-83g Pro (0.8-0.9 g/kg) 7788-6303 ml (25-30 ml/kg) Current Diet Order/ Nutrition Support [facility] Pertinent Medications INS-SS, Synthroid, Glucophage, Protonix Pertinent Labs 01/15: Hgb/Hct 12.8/37.5, Na 135 , Potass 3.2, Glucose 316, POC Glucose (last 24 hours) 251, 210 Nutritional Hx/Data Height 1.57 m Height (Calculated Centimeters) 157.5 Current Weight (lbs) 155.582 kg Weight (Calculated Kilograms) 155.6 Weight (Calculated Grams) 113707.2 [place] Body Weight 50.1 kg % [place] Body Weight 311 Body Mass Index (BMI) 62.7 Weight Status Morbidly Obese GI Symptoms GI Symptoms None Last BM Not noted Skin Integrity/Comment: Warm, Dry, Tight, Abscess on RT Lower Abdomen Carl: 18 Current %PO Good (75-100%) Estimated Nutritional Goals BEE in Kcals: Adj wt of IBW Calories/Kcals/Kg 20-25 Kcals Calculated 3280-9099 Protein: Adj wt of IBW Protein g/k.8-0.9 Protein Calculated 74-83 Fluid: ml 6019-1992 ml (25-30 ml/kg) Nutritional Problem 1. Problem Problem Altered nutrition related labs Etiology r/t endocrine dysfunction Signs/Symptoms: aeb lab result Glucose 316, POC Glucose (last 24 hours) 251, 210 Intervention/Recommendation Comments 1.Continue with [facility] diet as ordered. 2.Consider calories restricted diet. Expected Outcomes/Goals Expected Outcomes/Goals 1.PO intake to meet 75% of nutritional needs. 2.Monitor PO intake, wt, skin integrity, and nutrition related labs to trend WNL. 3.F/U as high risk in 2-3 days , 01/18-01/19
[2019-01-21] MEDS: Pantoprazole 40 mg EC Tab PO SCH (06:32)
[2019-01-21] MEDS: Levothyroxine 0.088 Mg Tab PO SCH (06:32)
[2019-01-21] MEDS: INSULIN LISPRO SLIDING SCALE 100 UNITS/ML UNIT SUBQ SCH ×4 (07:37→20:39)
[2019-01-21] MEDS: Acetaminophen 500 MG TAB PO PRN (08:48)
[2019-01-21] MEDS: Lactobacillus Rhamnosus GG 15 Billion CFU CAP.SPRINK PO SCH ×2 (08:48→16:32)
[2019-01-21] MEDS: Heparin Sod 5,000Units/ML 5,000 UNITS/ML VIAL SUBQ SCH ×2 (08:49→20:39)
--- NOTE | 2019-01-21 13:17 | General Progress Note ---
Subjective - Review of Systems Service Date: 01/21/19 Subjective: patient doing fine diarrhea better afebrile Objective - Results Result Diagrams: 01/19/19 12:00 01/19/19 12:00 Recent Labs: Laboratory Last Values WBC 9.0 Th/cmm (4.8-10.8) 01/19/19 12:00 RBC 4.65 Mil/cmm (3.80-5.10) 01/19/19 12:00 Hgb 13.2 gm/dL (12-16) 01/19/19 12:00 Hct 39.6 % (41.0-60) L 01/19/19 12:00 MCV 85.2 fl (81-100) 01/19/19 12:00 MCH 28.4 pg (27.0-31.0) 01/19/19 12:00 MCHC Differential 33.4 pg (28.0-36.0) 01/19/19 12:00 RDW 12.6 % (11.5-20.0) 01/19/19 12:00 Plt Count 395 Th/cmm (150-400) 01/19/19 12:00 MPV 8.2 fl 01/19/19 12:00 Neutrophils % 59.9 % (40.0-80.0) 01/19/19 12:00 Lymphocytes % 32.9 % (20.0-50.0) 01/19/19 12:00 Monocytes % 4.5 % (2.0-10.0) 01/19/19 12:00 Eosinophils % 2.0 % (0.0-5.0) 01/19/19 12:00 Basophils % 0.7 % (0.0-2.0) 01/19/19 12:00 PT 10.0 SECONDS (9.5-11.5) 01/16/19 21:04 INR 0.96 (0.5-1.4) 01/16/19 21:04 PTT (Actin FS) 25.2 SECONDS (26.0-38.0) L 01/16/19 21:04 Sodium 132 mEq/L (136-145) L 01/19/19 12:00 Potassium 3.6 mEq/L (3.5-5.1) 01/19/19 12:00 Chloride 99 mEq/L (98-107) 01/19/19 12:00 Carbon Dioxide 23.8 mEq/L (21.0-31.0) 01/19/19 12:00 Anion Gap 12.8 (7.0-16.0) 01/19/19 12:00 BUN 9 mg/dL (7-25) 01/19/19 12:00 Creatinine 0.6 mg/dL (0.6-1.2) 01/19/19 12:00 Est GFR ( Amer) > 60.0 ml/min (>90) 01/19/19 12:00 Est GFR (Non-Af Amer) > 60.0 ml/min 01/19/19 12:00 BUN/Creatinine Ratio 15.0 01/19/19 12:00 Glucose 174 mg/dL (70-105) H 01/19/19 12:00 POC Glucose 150 MG/DL (70 - 105) H 01/21/19 06:28 Calcium 9.5 mg/dL (8.6-10.3) 01/19/19 12:00 Magnesium 1.9 mg/dL (1.9-2.7) 01/15/19 19:30 Total Bilirubin 0.4 mg/dL (0.3-1.0) 01/16/19 21:04 AST 21 U/L (13-39) 01/16/19 21:04 ALT 25 U/L (7-52) 01/16/19 21:04 Alkaline Phosphatase 69 U/L (34-104) 01/16/19 21:04 Total Protein 6.3 gm/dL (6.0-8.3) 01/16/19 21:04 Albumin 3.5 gm/dL (3.7-5.3) L 01/16/19 21:04 Globulin 2.8 gm/dL 01/16/19 21:04 Albumin/Globulin Ratio 1.3 (1.0-1.8) 01/16/19 21:04 Urine Source RANDOM 01/15/19 20:30 Urine Color YELLOW 01/15/19 20:30 Urine Clarity CLEAR (CLEAR) 01/15/19 20:30 Urine pH 6.0 (4.6 - 8.0) 01/15/19 20:30 Ur Specific [place] 1.020 (1.005-1.030) 01/15/19 20:30 Urine Protein NEGATIVE mg/dL (NEGATIVE) 01/15/19 20:30 Urine Glucose (UA) >=1000 mg/dL (NEGATIVE) H 01/15/19 20:30 Urine Ketones NEGATIVE mg/dL (NEGATIVE) 01/15/19 20:30 Urine Blood NEGATIVE (NEGATIVE) 01/15/19 20:30 Urine Nitrate NEGATIVE (NEGATIVE) 01/15/19 20:30 Urine Bilirubin NEGATIVE (NEGATIVE) 01/15/19 20:30 Urine Urobilinogen 1.0 E.U./dL (0.2 - 1.0) 01/15/19 20:30 Ur Leukocyte Esterase NEGATIVE (NEGATIVE) 01/15/19 20:30 Urine RBC 0-2 /hpf (0-5) 01/15/19 20:30 Urine WBC 0-2 /hpf (0-5) 01/15/19 20:30 Ur Epithelial Cells FEW /lpf (FEW) 01/15/19 20:30 Urine Bacteria FEW /hpf (NONE SEEN) 01/15/19 20:30 Vancomycin Trough 10.4 ug/mL (5-10) H 01/19/19 12:00 - Physical Exam Vitals and I&O: Vital Signs Temp 97.4 F 01/21/19 11:45 Pulse 81 01/21/19 11:45 Resp 18 01/21/19 11:45 BP 123/58 01/21/19 11:45 Pulse Ox 96 01/21/19 11:45 Intake & Output 01/20/19 01/21/19 01/21/19 18:59 06:59 18:59 Intake Total 1900 1200 Balance 1900 1200 Weight (lbs) 156.943 kg 156.943 kg Intake: Intake, IV Amount 500 Vancomycin HCl 1.25 gm In 500 Sodium Chloride 0.9% 250 ml @ 165 mls/hr IV Q8H [facility] Rx#:[id number] Oral 1400 1200 Other: # Voids 4 3 # Bowel Movements 1 0 Weight Source Bedscale Bedscale Active Medications: Current Medications Acetaminophen (Tylenol Extra Strength) 500 mg PO Q4H PRN PRN Reason: Pain (Moderate) Stop: 03/16/19 22:38 Last Admin: 01/21/19 08:48 Dose: 500 mg Heparin Sodium (Porcine) (Heparin) 5,000 units SUBQ Q12H [facility] Stop: 03/17/19 20:59 Last Admin: 01/21/19 08:49 Dose: 5,000 units Ceftriaxone Sodium 2 gm/ (Sodium Chloride) 100 mls @ 100 mls/hr IV Q24H [facility] Stop: 03/19/19 15:44 Last Admin: 01/20/19 15:10 Dose: 100 mls/hr Insulin Human Lispro (Humalog Insulin Sliding Scale) 0 units SUBQ ACHS [facility]; Protocol Stop: 03/17/19 07:29 Last Admin: 01/21/19 11:59 Dose: 3 units Lactobacillus Rhamnosus (Culturelle 15b) 1 each PO BID [facility] Stop: 03/19/19 16:59 Last Admin: 01/21/19 08:48 Dose: 1 each Levothyroxine Sodium (Synthroid) 0.088 mg PO QDAC [facility] Stop: 03/17/19 07:29 Last Admin: 01/21/19 06:32 Dose: 0.088 mg Loratadine (Claritin) 10 mg PO DAILY [facility] Stop: 03/17/19 08:59 Last Admin: 01/21/19 08:48 Dose: 10 mg Metformin HCl (Glucophage) 500 mg PO BID [facility] Stop: 03/16/19 21:29 Last Admin: 01/21/19 08:49 Dose: 500 mg Miscellaneous (Vte Chemical Prophylaxis Screen/ Admission) 1 ea PRN PRN PRN Reason: PROTOCOL Stop: 03/17/19 10:20 Miscellaneous (Probiotic Screen) 1 ea PRN PRN PRN Reason: PROTOCOL Stop: 03/17/19 15:16 Pantoprazole Sodium (Protonix) 40 mg PO QDAC [facility] Stop: 03/17/19 07:29 Last Admin: 01/21/19 06:32 Dose: 40 mg Cardiovascular: Regular rate Lungs: Clear to auscultation Skin: Other (ABD wall erythema slightly better) - Procedures Procedures: Procedures Procedure Code Date EXCISION OF ESOPHAGOGASTRIC JUNCTION, ENDO, DIAGN [id number] 02/24/18 EXCISION OF STOMACH, PYLORUS, ENDO, DIAGN [id number] 02/24/18 Assessment/Plan - Assessment Assessment: ABD WALL CELLULITS DM II Diarrhea MORBID OBESITY - Plan Plan: Diarrhea better Continue IV Antibiotics Local wound care ID On board Plan of care dw nursing staff Nutritional Asmnt/Malnutr-PDOC - Dietary Evaluation Malnutrition Findings (Please click <Entered> for more info): Nutritional Asmnt/Malnutrition Start: 01/16/19 15: 50 Text: Status: Complete Freq: Protocol: Document 01/16/19 15:50 CRISTIAN (Rec: 01/16/19 15:55 CRISTIAN [email or web address]) Nutritional Asmnt/Malnutrition Patient General Information Nutritional Screening High Risk Consult Diagnosis Cellulitis Lower Abdominal Pertinent Medical Hx/Surgical Hx HTN, DM Subjective Information Consult: Diabetic, Blood sugar during admission - 316 Pt is a 43-year-old female admitted on 01/15 c/o abdominal wall redness and pain x3 days. Spoke to AARON Collier, Pt ate 100 % at breakfast and lunch today . Pt was sleeping at time of visit. Will follow up with Pt as high risk to provide nutrition education for glucose control if needed. May want to consider calories restricted diet d/t BMI 62.73 (Morbidly Obese). HT: 52 WT: 343 LB (155.9 kg) ADJ BW: 92.42 kg BMI: 62.73 (Morbidly Obese) GI: Large, Round, Swelling, Red, Warm to Touch BM: Not noted I/O: 100/Not Noted Skin: Warm, Dry, Tight, Abscess on RT Lower Abdomen Carl: 18 Diet Order: [facility] Estimated Energy Needs: (Obese III, ADJ BW) 3278-7506 kcals (20-25 kcals/ kg) 74-83g Pro (0.8-0.9 g/kg) 1619-2994 ml (25-30 ml/kg) Current Diet Order/ Nutrition Support [facility] Pertinent Medications INS-SS, Synthroid, Glucophage, Protonix Pertinent Labs 01/15: Hgb/Hct 12.8/37.5, Na 135 , Potass 3.2, Glucose 316, POC Glucose (last 24 hours) 251, 210 Nutritional Hx/Data Height 1.57 m Height (Calculated Centimeters) 157.5 Current Weight (lbs) 155.582 kg Weight (Calculated Kilograms) 155.6 Weight (Calculated Grams) 811777.2 [place] Body Weight 50.1 kg % [place] Body Weight 311 Body Mass Index (BMI) 62.7 Weight Status Morbidly Obese GI Symptoms GI Symptoms None Last BM Not noted Skin Integrity/Comment: Warm, Dry, Tight, Abscess on RT Lower Abdomen Carl: 18 Current %PO Good (75-100%) Estimated Nutritional Goals BEE in Kcals: Adj wt of IBW Calories/Kcals/Kg 20-25 Kcals Calculated 5061-9980 Protein: Adj wt of IBW Protein g/k.8-0.9 Protein Calculated 74-83 Fluid: ml 3646-5508 ml (25-30 ml/kg) Nutritional Problem 1. Problem Problem Altered nutrition related labs Etiology r/t endocrine dysfunction Signs/Symptoms: aeb lab result Glucose 316, POC Glucose (last 24 hours) 251, 210 Intervention/Recommendation Comments 1.Continue with [facility] diet as ordered. 2.Consider calories restricted diet. Expected Outcomes/Goals Expected Outcomes/Goals 1.PO intake to meet 75% of nutritional needs. 2.Monitor PO intake, wt, skin integrity, and nutrition related labs to trend WNL. 3.F/U as high risk in 2-3 days , 01/18-01/19
[2019-01-21] MEDS: cefTRIAXone 2 GM in Sodium Chloride 0.9% 100 ML IV SCH (15:18)
[2019-01-22] MEDS: Acetaminophen 500 MG TAB PO PRN ×3 (05:48→16:30)
[2019-01-22] MEDS: Levothyroxine 0.088 Mg Tab PO SCH (06:34)
[2019-01-22] MEDS: Pantoprazole 40 mg EC Tab PO SCH (06:34)
[2019-01-22] MEDS: INSULIN LISPRO SLIDING SCALE 100 UNITS/ML UNIT SUBQ SCH ×4 (06:36→21:28)
[2019-01-22] MEDS: Lactobacillus Rhamnosus GG 15 Billion CFU CAP.SPRINK PO SCH ×2 (08:15→16:28)
[2019-01-22] MEDS: Heparin Sod 5,000Units/ML 5,000 UNITS/ML VIAL SUBQ SCH ×2 (08:17→21:27)
[2019-01-22] MEDS: cefTRIAXone 2 GM in Sodium Chloride 0.9% 100 ML IV SCH (14:45)
[2019-01-23] MEDS: INSULIN LISPRO SLIDING SCALE 100 UNITS/ML UNIT SUBQ SCH ×4 (06:37→20:17)
[2019-01-23] MEDS: Pantoprazole 40 mg EC Tab PO SCH (06:48)
[2019-01-23] MEDS: Levothyroxine 0.088 Mg Tab PO SCH (06:48)
[2019-01-23] MEDS: Heparin Sod 5,000Units/ML 5,000 UNITS/ML VIAL SUBQ SCH ×2 (08:44→20:18)
[2019-01-23] MEDS: Lactobacillus Rhamnosus GG 15 Billion CFU CAP.SPRINK PO SCH ×2 (08:48→17:00)
[2019-01-23] MEDS: Acetaminophen 500 MG TAB PO PRN ×2 (08:48→20:17)
[2019-01-23] MEDS: cefTRIAXone 2 GM in Sodium Chloride 0.9% 100 ML IV SCH (15:16)
--- NOTE | 2019-01-23 22:06 | General Progress Note ---
Subjective - Review of Systems Service Date: 01/22/19 Subjective: Late entry: Patient seen and examined no new concern reported Objective - Results Result Diagrams: 01/19/19 12:00 01/19/19 12:00 Recent Labs: Laboratory Last Values WBC 9.0 Th/cmm (4.8-10.8) 01/19/19 12:00 RBC 4.65 Mil/cmm (3.80-5.10) 01/19/19 12:00 Hgb 13.2 gm/dL (12-16) 01/19/19 12:00 Hct 39.6 % (41.0-60) L 01/19/19 12:00 MCV 85.2 fl (81-100) 01/19/19 12:00 MCH 28.4 pg (27.0-31.0) 01/19/19 12:00 MCHC Differential 33.4 pg (28.0-36.0) 01/19/19 12:00 RDW 12.6 % (11.5-20.0) 01/19/19 12:00 Plt Count 395 Th/cmm (150-400) 01/19/19 12:00 MPV 8.2 fl 01/19/19 12:00 Neutrophils % 59.9 % (40.0-80.0) 01/19/19 12:00 Lymphocytes % 32.9 % (20.0-50.0) 01/19/19 12:00 Monocytes % 4.5 % (2.0-10.0) 01/19/19 12:00 Eosinophils % 2.0 % (0.0-5.0) 01/19/19 12:00 Basophils % 0.7 % (0.0-2.0) 01/19/19 12:00 PT 10.0 SECONDS (9.5-11.5) 01/16/19 21:04 INR 0.96 (0.5-1.4) 01/16/19 21:04 PTT (Actin FS) 25.2 SECONDS (26.0-38.0) L 01/16/19 21:04 Sodium 132 mEq/L (136-145) L 01/19/19 12:00 Potassium 3.6 mEq/L (3.5-5.1) 01/19/19 12:00 Chloride 99 mEq/L (98-107) 01/19/19 12:00 Carbon Dioxide 23.8 mEq/L (21.0-31.0) 01/19/19 12:00 Anion Gap 12.8 (7.0-16.0) 01/19/19 12:00 BUN 9 mg/dL (7-25) 01/19/19 12:00 Creatinine 0.6 mg/dL (0.6-1.2) 01/19/19 12:00 Est GFR ( Amer) > 60.0 ml/min (>90) 01/19/19 12:00 Est GFR (Non-Af Amer) > 60.0 ml/min 01/19/19 12:00 BUN/Creatinine Ratio 15.0 01/19/19 12:00 Glucose 174 mg/dL (70-105) H 01/19/19 12:00 POC Glucose 159 MG/DL (70 - 105) H 01/23/19 20:13 Calcium 9.5 mg/dL (8.6-10.3) 01/19/19 12:00 Magnesium 1.9 mg/dL (1.9-2.7) 01/15/19 19:30 Total Bilirubin 0.4 mg/dL (0.3-1.0) 01/16/19 21:04 AST 21 U/L (13-39) 01/16/19 21:04 ALT 25 U/L (7-52) 01/16/19 21:04 Alkaline Phosphatase 69 U/L (34-104) 01/16/19 21:04 Total Protein 6.3 gm/dL (6.0-8.3) 01/16/19 21:04 Albumin 3.5 gm/dL (3.7-5.3) L 01/16/19 21:04 Globulin 2.8 gm/dL 01/16/19 21:04 Albumin/Globulin Ratio 1.3 (1.0-1.8) 01/16/19 21:04 Urine Source RANDOM 01/15/19 20:30 Urine Color YELLOW 01/15/19 20:30 Urine Clarity CLEAR (CLEAR) 01/15/19 20:30 Urine pH 6.0 (4.6 - 8.0) 01/15/19 20:30 Ur Specific [place] 1.020 (1.005-1.030) 01/15/19 20:30 Urine Protein NEGATIVE mg/dL (NEGATIVE) 01/15/19 20:30 Urine Glucose (UA) >=1000 mg/dL (NEGATIVE) H 01/15/19 20:30 Urine Ketones NEGATIVE mg/dL (NEGATIVE) 01/15/19 20:30 Urine Blood NEGATIVE (NEGATIVE) 01/15/19 20:30 Urine Nitrate NEGATIVE (NEGATIVE) 01/15/19 20:30 Urine Bilirubin NEGATIVE (NEGATIVE) 01/15/19 20:30 Urine Urobilinogen 1.0 E.U./dL (0.2 - 1.0) 01/15/19 20:30 Ur Leukocyte Esterase NEGATIVE (NEGATIVE) 01/15/19 20:30 Urine RBC 0-2 /hpf (0-5) 01/15/19 20:30 Urine WBC 0-2 /hpf (0-5) 01/15/19 20:30 Ur Epithelial Cells FEW /lpf (FEW) 01/15/19 20:30 Urine Bacteria FEW /hpf (NONE SEEN) 01/15/19 20:30 Vancomycin Trough 10.4 ug/mL (5-10) H 01/19/19 12:00 - Physical Exam Vitals and I&O: Vital Signs Temp 97.5 F 01/23/19 20:00 Pulse 82 01/23/19 20:00 Resp 20 01/23/19 20:00 BP 101/54 01/23/19 20:00 Pulse Ox 96 01/23/19 20:00 Intake & Output 01/23/19 01/23/19 01/24/19 06:59 18:59 06:59 Intake Total 800 Balance 800 Weight (lbs) 156.943 kg Intake: Oral 800 Other: # Voids 2 # Bowel Movements 0 Weight Source Bedscale Active Medications: Current Medications Acetaminophen (Tylenol Extra Strength) 500 mg PO Q4H PRN PRN Reason: Pain (Moderate) Stop: 03/16/19 22:38 Last Admin: 01/23/19 20:17 Dose: 500 mg Heparin Sodium (Porcine) (Heparin) 5,000 units SUBQ Q12H [facility] Stop: 03/17/19 20:59 Last Admin: 01/23/19 20:18 Dose: 5,000 units Ceftriaxone Sodium 2 gm/ (Sodium Chloride) 100 mls @ 100 mls/hr IV Q24H [facility] Stop: 03/19/19 15:44 Last Admin: 01/23/19 15:16 Dose: 100 mls/hr Insulin Human Lispro (Humalog Insulin Sliding Scale) 0 units SUBQ ACHS [facility]; Protocol Stop: 03/17/19 07:29 Last Admin: 01/23/19 20:17 Dose: 3 units Lactobacillus Rhamnosus (Culturelle 15b) 1 each PO BID [facility] Stop: 03/19/19 16:59 Last Admin: 01/23/19 17:00 Dose: 1 each Levothyroxine Sodium (Synthroid) 0.088 mg PO QDAC [facility] Stop: 03/17/19 07:29 Last Admin: 01/23/19 06:48 Dose: 0.088 mg Loratadine (Claritin) 10 mg PO DAILY [facility] Stop: 03/17/19 08:59 Last Admin: 01/23/19 08:48 Dose: 10 mg Metformin HCl (Glucophage) 500 mg PO BID [facility] Stop: 03/16/19 21:29 Last Admin: 01/23/19 16:59 Dose: 500 mg Miscellaneous (Vte Chemical Prophylaxis Screen/ Admission) 1 ea PRN PRN PRN Reason: PROTOCOL Stop: 03/17/19 10:20 Miscellaneous (Probiotic Screen) 1 ea PRN PRN PRN Reason: PROTOCOL Stop: 03/17/19 15:16 Pantoprazole Sodium (Protonix) 40 mg PO QDAC [facility] Stop: 03/17/19 07:29 Last Admin: 01/23/19 06:48 Dose: 40 mg Cardiovascular: Regular rate Lungs: Clear to auscultation Skin: Other (ABD wall erythema slightly better) - Procedures Procedures: Procedures Procedure Code Date EXCISION OF ESOPHAGOGASTRIC JUNCTION, ENDO, DIAGN [id number] 02/24/18 EXCISION OF STOMACH, PYLORUS, ENDO, DIAGN [id number] 02/24/18 Assessment/Plan - Assessment Assessment: ABD WALL CELLULITS DM II Diarrhea MORBID OBESITY - Plan Plan: Continue IV Antibiotics Local wound care Case dw ID Plan of care dw nursing staff Nutritional Asmnt/Malnutr-PDOC - Dietary Evaluation Malnutrition Findings (Please click <Entered> for more info): Nutritional Asmnt/Malnutrition Start: 01/16/19 15: 50 Text: Status: Complete Freq: Protocol: Document 01/16/19 15:50 JEXAMUS (Rec: 01/16/19 15:55 CRISTIAN [email or web address]) Nutritional Asmnt/Malnutrition Patient General Information Nutritional Screening High Risk Consult Diagnosis Cellulitis Lower Abdominal Pertinent Medical Hx/Surgical Hx HTN, DM Subjective Information Consult: Diabetic, Blood sugar during admission - 316 Pt is a 43-year-old female admitted on 01/15 c/o abdominal wall redness and pain x3 days. Spoke to AARON Collier, Pt ate 100 % at breakfast and lunch today . Pt was sleeping at time of visit. Will follow up with Pt as high risk to provide nutrition education for glucose control if needed. May want to consider calories restricted diet d/t BMI 62.73 (Morbidly Obese). HT: 52 WT: 343 LB (155.9 kg) ADJ BW: 92.42 kg BMI: 62.73 (Morbidly Obese) GI: Large, Round, Swelling, Red, Warm to Touch BM: Not noted I/O: 100/Not Noted Skin: Warm, Dry, Tight, Abscess on RT Lower Abdomen Carl: 18 Diet Order: [facility] Estimated Energy Needs: (Obese III, ADJ BW) 4088-7042 kcals (20-25 kcals/ kg) 74-83g Pro (0.8-0.9 g/kg) 5215-7782 ml (25-30 ml/kg) Current Diet Order/ Nutrition Support [facility] Pertinent Medications INS-SS, Synthroid, Glucophage, Protonix Pertinent Labs 01/15: Hgb/Hct 12.8/37.5, Na 135 , Potass 3.2, Glucose 316, POC Glucose (last 24 hours) 251, 210 Nutritional Hx/Data Height 1.57 m Height (Calculated Centimeters) 157.5 Current Weight (lbs) 155.582 kg Weight (Calculated Kilograms) 155.6 Weight (Calculated Grams) 540926.2 [place] Body Weight 50.1 kg % [place] Body Weight 311 Body Mass Index (BMI) 62.7 Weight Status Morbidly Obese GI Symptoms GI Symptoms None Last BM Not noted Skin Integrity/Comment: Warm, Dry, Tight, Abscess on RT Lower Abdomen Carl: 18 Current %PO Good (75-100%) Estimated Nutritional Goals BEE in Kcals: Adj wt of IBW Calories/Kcals/Kg 20-25 Kcals Calculated 4476-6763 Protein: Adj wt of IBW Protein g/k.8-0.9 Protein Calculated 74-83 Fluid: ml 1690-3873 ml (25-30 ml/kg) Nutritional Problem 1. Problem Problem Altered nutrition related labs Etiology r/t endocrine dysfunction Signs/Symptoms: aeb lab result Glucose 316, POC Glucose (last 24 hours) 251, 210 Intervention/Recommendation Comments 1.Continue with [facility] diet as ordered. 2.Consider calories restricted diet. Expected Outcomes/Goals Expected Outcomes/Goals 1.PO intake to meet 75% of nutritional needs. 2.Monitor PO intake, wt, skin integrity, and nutrition related labs to trend WNL. 3.F/U as high risk in 2-3 days , 01/18-01/19
--- NOTE | 2019-01-23 22:07 | General Progress Note ---
Subjective - Review of Systems Service Date: 01/23/19 Subjective: Patient seen and examined no new concern reported Objective - Results Result Diagrams: 01/19/19 12:00 01/19/19 12:00 Recent Labs: Laboratory Last Values WBC 9.0 Th/cmm (4.8-10.8) 01/19/19 12:00 RBC 4.65 Mil/cmm (3.80-5.10) 01/19/19 12:00 Hgb 13.2 gm/dL (12-16) 01/19/19 12:00 Hct 39.6 % (41.0-60) L 01/19/19 12:00 MCV 85.2 fl (81-100) 01/19/19 12:00 MCH 28.4 pg (27.0-31.0) 01/19/19 12:00 MCHC Differential 33.4 pg (28.0-36.0) 01/19/19 12:00 RDW 12.6 % (11.5-20.0) 01/19/19 12:00 Plt Count 395 Th/cmm (150-400) 01/19/19 12:00 MPV 8.2 fl 01/19/19 12:00 Neutrophils % 59.9 % (40.0-80.0) 01/19/19 12:00 Lymphocytes % 32.9 % (20.0-50.0) 01/19/19 12:00 Monocytes % 4.5 % (2.0-10.0) 01/19/19 12:00 Eosinophils % 2.0 % (0.0-5.0) 01/19/19 12:00 Basophils % 0.7 % (0.0-2.0) 01/19/19 12:00 PT 10.0 SECONDS (9.5-11.5) 01/16/19 21:04 INR 0.96 (0.5-1.4) 01/16/19 21:04 PTT (Actin FS) 25.2 SECONDS (26.0-38.0) L 01/16/19 21:04 Sodium 132 mEq/L (136-145) L 01/19/19 12:00 Potassium 3.6 mEq/L (3.5-5.1) 01/19/19 12:00 Chloride 99 mEq/L (98-107) 01/19/19 12:00 Carbon Dioxide 23.8 mEq/L (21.0-31.0) 01/19/19 12:00 Anion Gap 12.8 (7.0-16.0) 01/19/19 12:00 BUN 9 mg/dL (7-25) 01/19/19 12:00 Creatinine 0.6 mg/dL (0.6-1.2) 01/19/19 12:00 Est GFR ( Amer) > 60.0 ml/min (>90) 01/19/19 12:00 Est GFR (Non-Af Amer) > 60.0 ml/min 01/19/19 12:00 BUN/Creatinine Ratio 15.0 01/19/19 12:00 Glucose 174 mg/dL (70-105) H 01/19/19 12:00 POC Glucose 159 MG/DL (70 - 105) H 01/23/19 20:13 Calcium 9.5 mg/dL (8.6-10.3) 01/19/19 12:00 Magnesium 1.9 mg/dL (1.9-2.7) 01/15/19 19:30 Total Bilirubin 0.4 mg/dL (0.3-1.0) 01/16/19 21:04 AST 21 U/L (13-39) 01/16/19 21:04 ALT 25 U/L (7-52) 01/16/19 21:04 Alkaline Phosphatase 69 U/L (34-104) 01/16/19 21:04 Total Protein 6.3 gm/dL (6.0-8.3) 01/16/19 21:04 Albumin 3.5 gm/dL (3.7-5.3) L 01/16/19 21:04 Globulin 2.8 gm/dL 01/16/19 21:04 Albumin/Globulin Ratio 1.3 (1.0-1.8) 01/16/19 21:04 Urine Source RANDOM 01/15/19 20:30 Urine Color YELLOW 01/15/19 20:30 Urine Clarity CLEAR (CLEAR) 01/15/19 20:30 Urine pH 6.0 (4.6 - 8.0) 01/15/19 20:30 Ur Specific [place] 1.020 (1.005-1.030) 01/15/19 20:30 Urine Protein NEGATIVE mg/dL (NEGATIVE) 01/15/19 20:30 Urine Glucose (UA) >=1000 mg/dL (NEGATIVE) H 01/15/19 20:30 Urine Ketones NEGATIVE mg/dL (NEGATIVE) 01/15/19 20:30 Urine Blood NEGATIVE (NEGATIVE) 01/15/19 20:30 Urine Nitrate NEGATIVE (NEGATIVE) 01/15/19 20:30 Urine Bilirubin NEGATIVE (NEGATIVE) 01/15/19 20:30 Urine Urobilinogen 1.0 E.U./dL (0.2 - 1.0) 01/15/19 20:30 Ur Leukocyte Esterase NEGATIVE (NEGATIVE) 01/15/19 20:30 Urine RBC 0-2 /hpf (0-5) 01/15/19 20:30 Urine WBC 0-2 /hpf (0-5) 01/15/19 20:30 Ur Epithelial Cells FEW /lpf (FEW) 01/15/19 20:30 Urine Bacteria FEW /hpf (NONE SEEN) 01/15/19 20:30 Vancomycin Trough 10.4 ug/mL (5-10) H 01/19/19 12:00 - Physical Exam Vitals and I&O: Vital Signs Temp 97.5 F 01/23/19 20:00 Pulse 82 01/23/19 20:00 Resp 20 01/23/19 20:00 BP 101/54 01/23/19 20:00 Pulse Ox 96 01/23/19 20:00 Intake & Output 01/23/19 01/23/19 01/24/19 06:59 18:59 06:59 Intake Total 800 Balance 800 Weight (lbs) 156.943 kg Intake: Oral 800 Other: # Voids 2 # Bowel Movements 0 Weight Source Bedscale Active Medications: Current Medications Acetaminophen (Tylenol Extra Strength) 500 mg PO Q4H PRN PRN Reason: Pain (Moderate) Stop: 03/16/19 22:38 Last Admin: 01/23/19 20:17 Dose: 500 mg Heparin Sodium (Porcine) (Heparin) 5,000 units SUBQ Q12H [facility] Stop: 03/17/19 20:59 Last Admin: 01/23/19 20:18 Dose: 5,000 units Ceftriaxone Sodium 2 gm/ (Sodium Chloride) 100 mls @ 100 mls/hr IV Q24H [facility] Stop: 03/19/19 15:44 Last Admin: 01/23/19 15:16 Dose: 100 mls/hr Insulin Human Lispro (Humalog Insulin Sliding Scale) 0 units SUBQ ACHS [facility]; Protocol Stop: 03/17/19 07:29 Last Admin: 01/23/19 20:17 Dose: 3 units Lactobacillus Rhamnosus (Culturelle 15b) 1 each PO BID [facility] Stop: 03/19/19 16:59 Last Admin: 01/23/19 17:00 Dose: 1 each Levothyroxine Sodium (Synthroid) 0.088 mg PO QDAC [facility] Stop: 03/17/19 07:29 Last Admin: 01/23/19 06:48 Dose: 0.088 mg Loratadine (Claritin) 10 mg PO DAILY [facility] Stop: 03/17/19 08:59 Last Admin: 01/23/19 08:48 Dose: 10 mg Metformin HCl (Glucophage) 500 mg PO BID [facility] Stop: 03/16/19 21:29 Last Admin: 01/23/19 16:59 Dose: 500 mg Miscellaneous (Vte Chemical Prophylaxis Screen/ Admission) 1 ea PRN PRN PRN Reason: PROTOCOL Stop: 03/17/19 10:20 Miscellaneous (Probiotic Screen) 1 ea PRN PRN PRN Reason: PROTOCOL Stop: 03/17/19 15:16 Pantoprazole Sodium (Protonix) 40 mg PO QDAC [facility] Stop: 03/17/19 07:29 Last Admin: 01/23/19 06:48 Dose: 40 mg Cardiovascular: Regular rate Lungs: Clear to auscultation Skin: Other (ABD wall erythema slightly better) - Procedures Procedures: Procedures Procedure Code Date EXCISION OF ESOPHAGOGASTRIC JUNCTION, ENDO, DIAGN [id number] 02/24/18 EXCISION OF STOMACH, PYLORUS, ENDO, DIAGN [id number] 02/24/18 Assessment/Plan - Assessment Assessment: ABD WALL CELLULITS DM II Diarrhea MORBID OBESITY - Plan Plan: Continue IV Antibiotics Local wound care Case dw ID Plan of care dw nursing staff Nutritional Asmnt/Malnutr-PDOC - Dietary Evaluation Malnutrition Findings (Please click <Entered> for more info): Nutritional Asmnt/Malnutrition Start: 01/16/19 15: 50 Text: Status: Complete Freq: Protocol: Document 01/16/19 15:50 CHANTELLMUS (Rec: 01/16/19 15:55 CRISTIAN [email or web address]) Nutritional Asmnt/Malnutrition Patient General Information Nutritional Screening High Risk Consult Diagnosis Cellulitis Lower Abdominal Pertinent Medical Hx/Surgical Hx HTN, DM Subjective Information Consult: Diabetic, Blood sugar during admission - 316 Pt is a 43-year-old female admitted on 01/15 c/o abdominal wall redness and pain x3 days. Spoke to AARON Collier, Pt ate 100 % at breakfast and lunch today . Pt was sleeping at time of visit. Will follow up with Pt as high risk to provide nutrition education for glucose control if needed. May want to consider calories restricted diet d/t BMI 62.73 (Morbidly Obese). HT: 52 WT: 343 LB (155.9 kg) ADJ BW: 92.42 kg BMI: 62.73 (Morbidly Obese) GI: Large, Round, Swelling, Red, Warm to Touch BM: Not noted I/O: 100/Not Noted Skin: Warm, Dry, Tight, Abscess on RT Lower Abdomen Carl: 18 Diet Order: [facility] Estimated Energy Needs: (Obese III, ADJ BW) 6049-6209 kcals (20-25 kcals/ kg) 74-83g Pro (0.8-0.9 g/kg) 0076-2145 ml (25-30 ml/kg) Current Diet Order/ Nutrition Support [facility] Pertinent Medications INS-SS, Synthroid, Glucophage, Protonix Pertinent Labs 01/15: Hgb/Hct 12.8/37.5, Na 135 , Potass 3.2, Glucose 316, POC Glucose (last 24 hours) 251, 210 Nutritional Hx/Data Height 1.57 m Height (Calculated Centimeters) 157.5 Current Weight (lbs) 155.582 kg Weight (Calculated Kilograms) 155.6 Weight (Calculated Grams) 741490.2 [place] Body Weight 50.1 kg % [place] Body Weight 311 Body Mass Index (BMI) 62.7 Weight Status Morbidly Obese GI Symptoms GI Symptoms None Last BM Not noted Skin Integrity/Comment: Warm, Dry, Tight, Abscess on RT Lower Abdomen Carl: 18 Current %PO Good (75-100%) Estimated Nutritional Goals BEE in Kcals: Adj wt of IBW Calories/Kcals/Kg 20-25 Kcals Calculated 0248-6260 Protein: Adj wt of IBW Protein g/k.8-0.9 Protein Calculated 74-83 Fluid: ml 0634-3879 ml (25-30 ml/kg) Nutritional Problem 1. Problem Problem Altered nutrition related labs Etiology r/t endocrine dysfunction Signs/Symptoms: aeb lab result Glucose 316, POC Glucose (last 24 hours) 251, 210 Intervention/Recommendation Comments 1.Continue with [facility] diet as ordered. 2.Consider calories restricted diet. Expected Outcomes/Goals Expected Outcomes/Goals 1.PO intake to meet 75% of nutritional needs. 2.Monitor PO intake, wt, skin integrity, and nutrition related labs to trend WNL. 3.F/U as high risk in 2-3 days , 01/18-01/19
[2019-01-24] MEDS: INSULIN LISPRO SLIDING SCALE 100 UNITS/ML UNIT SUBQ SCH ×4 (06:35→20:30)
[2019-01-24] MEDS: Levothyroxine 0.088 Mg Tab PO SCH (06:36)
[2019-01-24] MEDS: Pantoprazole 40 mg EC Tab PO SCH (06:36)
[2019-01-24] MEDS: Acetaminophen 500 MG TAB PO PRN (08:31)
[2019-01-24] MEDS: Lactobacillus Rhamnosus GG 15 Billion CFU CAP.SPRINK PO SCH ×2 (08:32→16:41)
[2019-01-24] MEDS: cefTRIAXone 2 GM in Sodium Chloride 0.9% 100 ML IV SCH (15:41)
--- NOTE | 2019-01-24 21:26 | General Progress Note ---
Subjective - Review of Systems Subjective: Patient seen and examined no new concern reported Objective - Results Result Diagrams: 01/19/19 12:00 01/19/19 12:00 Recent Labs: Laboratory Last Values WBC 9.0 Th/cmm (4.8-10.8) 01/19/19 12:00 RBC 4.65 Mil/cmm (3.80-5.10) 01/19/19 12:00 Hgb 13.2 gm/dL (12-16) 01/19/19 12:00 Hct 39.6 % (41.0-60) L 01/19/19 12:00 MCV 85.2 fl (81-100) 01/19/19 12:00 MCH 28.4 pg (27.0-31.0) 01/19/19 12:00 MCHC Differential 33.4 pg (28.0-36.0) 01/19/19 12:00 RDW 12.6 % (11.5-20.0) 01/19/19 12:00 Plt Count 395 Th/cmm (150-400) 01/19/19 12:00 MPV 8.2 fl 01/19/19 12:00 Neutrophils % 59.9 % (40.0-80.0) 01/19/19 12:00 Lymphocytes % 32.9 % (20.0-50.0) 01/19/19 12:00 Monocytes % 4.5 % (2.0-10.0) 01/19/19 12:00 Eosinophils % 2.0 % (0.0-5.0) 01/19/19 12:00 Basophils % 0.7 % (0.0-2.0) 01/19/19 12:00 PT 10.0 SECONDS (9.5-11.5) 01/16/19 21:04 INR 0.96 (0.5-1.4) 01/16/19 21:04 PTT (Actin FS) 25.2 SECONDS (26.0-38.0) L 01/16/19 21:04 Sodium 132 mEq/L (136-145) L 01/19/19 12:00 Potassium 3.6 mEq/L (3.5-5.1) 01/19/19 12:00 Chloride 99 mEq/L (98-107) 01/19/19 12:00 Carbon Dioxide 23.8 mEq/L (21.0-31.0) 01/19/19 12:00 Anion Gap 12.8 (7.0-16.0) 01/19/19 12:00 BUN 9 mg/dL (7-25) 01/19/19 12:00 Creatinine 0.6 mg/dL (0.6-1.2) 01/19/19 12:00 Est GFR ( Amer) > 60.0 ml/min (>90) 01/19/19 12:00 Est GFR (Non-Af Amer) > 60.0 ml/min 01/19/19 12:00 BUN/Creatinine Ratio 15.0 01/19/19 12:00 Glucose 174 mg/dL (70-105) H 01/19/19 12:00 POC Glucose 165 MG/DL (70 - 105) H 01/24/19 20:27 Calcium 9.5 mg/dL (8.6-10.3) 01/19/19 12:00 Magnesium 1.9 mg/dL (1.9-2.7) 01/15/19 19:30 Total Bilirubin 0.4 mg/dL (0.3-1.0) 01/16/19 21:04 AST 21 U/L (13-39) 01/16/19 21:04 ALT 25 U/L (7-52) 01/16/19 21:04 Alkaline Phosphatase 69 U/L (34-104) 01/16/19 21:04 Total Protein 6.3 gm/dL (6.0-8.3) 01/16/19 21:04 Albumin 3.5 gm/dL (3.7-5.3) L 01/16/19 21:04 Globulin 2.8 gm/dL 01/16/19 21:04 Albumin/Globulin Ratio 1.3 (1.0-1.8) 01/16/19 21:04 Urine Source RANDOM 01/15/19 20:30 Urine Color YELLOW 01/15/19 20:30 Urine Clarity CLEAR (CLEAR) 01/15/19 20:30 Urine pH 6.0 (4.6 - 8.0) 01/15/19 20:30 Ur Specific [place] 1.020 (1.005-1.030) 01/15/19 20:30 Urine Protein NEGATIVE mg/dL (NEGATIVE) 01/15/19 20:30 Urine Glucose (UA) >=1000 mg/dL (NEGATIVE) H 01/15/19 20:30 Urine Ketones NEGATIVE mg/dL (NEGATIVE) 01/15/19 20:30 Urine Blood NEGATIVE (NEGATIVE) 01/15/19 20:30 Urine Nitrate NEGATIVE (NEGATIVE) 01/15/19 20:30 Urine Bilirubin NEGATIVE (NEGATIVE) 01/15/19 20:30 Urine Urobilinogen 1.0 E.U./dL (0.2 - 1.0) 01/15/19 20:30 Ur Leukocyte Esterase NEGATIVE (NEGATIVE) 01/15/19 20:30 Urine RBC 0-2 /hpf (0-5) 01/15/19 20:30 Urine WBC 0-2 /hpf (0-5) 01/15/19 20:30 Ur Epithelial Cells FEW /lpf (FEW) 01/15/19 20:30 Urine Bacteria FEW /hpf (NONE SEEN) 01/15/19 20:30 Vancomycin Trough 10.4 ug/mL (5-10) H 01/19/19 12:00 - Physical Exam Vitals and I&O: Vital Signs Temp 96.0 F 01/24/19 20:00 Pulse 68 01/24/19 20:00 Resp 20 01/24/19 20:00 BP 146/87 01/24/19 20:00 Pulse Ox 95 01/24/19 20:00 Intake & Output 01/24/19 01/24/19 01/25/19 06:59 18:59 06:59 Intake Total 360 2000 Balance 360 1999 Weight (lbs) 156.943 kg 158.757 kg Intake: Oral 360 1999 Other: # Voids 3 6 # Bowel Movements 0 Weight Source Bedscale Bedscale Active Medications: Current Medications Acetaminophen (Tylenol Extra Strength) 500 mg PO Q4H PRN PRN Reason: Pain (Moderate) Stop: 03/16/19 22:38 Last Admin: 01/24/19 08:31 Dose: 500 mg Ceftriaxone Sodium 2 gm/ (Sodium Chloride) 100 mls @ 100 mls/hr IV Q24H [facility] Stop: 03/19/19 15:44 Last Admin: 01/24/19 15:41 Dose: 100 mls/hr Insulin Human Lispro (Humalog Insulin Sliding Scale) 0 units SUBQ ACHS [facility]; Protocol Stop: 03/17/19 07:29 Last Admin: 01/24/19 20:30 Dose: 3 units Lactobacillus Rhamnosus (Culturelle 15b) 1 each PO BID [facility] Stop: 03/19/19 16:59 Last Admin: 01/24/19 16:41 Dose: 1 each Levothyroxine Sodium (Synthroid) 0.088 mg PO QDAC [facility] Stop: 03/17/19 07:29 Last Admin: 01/24/19 06:36 Dose: 0.088 mg Loratadine (Claritin) 10 mg PO DAILY [facility] Stop: 03/17/19 08:59 Last Admin: 01/24/19 08:32 Dose: 10 mg Metformin HCl (Glucophage) 500 mg PO BID [facility] Stop: 03/16/19 21:29 Last Admin: 01/24/19 16:41 Dose: 500 mg Miscellaneous (Vte Chemical Prophylaxis Screen/ Admission) 1 ea PRN PRN PRN Reason: PROTOCOL Stop: 03/17/19 10:20 Miscellaneous (Probiotic Screen) 1 ea PRN PRN PRN Reason: PROTOCOL Stop: 03/17/19 15:16 Pantoprazole Sodium (Protonix) 40 mg PO QDAC [facility] Stop: 03/17/19 07:29 Last Admin: 01/24/19 06:36 Dose: 40 mg Cardiovascular: Regular rate Lungs: Clear to auscultation Skin: Other (ABD wall erythema slightly better) - Procedures Procedures: Procedures Procedure Code Date EXCISION OF ESOPHAGOGASTRIC JUNCTION, ENDO, DIAGN [id number] 02/24/18 EXCISION OF STOMACH, PYLORUS, ENDO, DIAGN [id number] 02/24/18 Assessment/Plan - Assessment Assessment: ABD WALL CELLULITS DM II Diarrhea MORBID OBESITY - Plan Plan: Continue IV Antibiotics Local wound care Case dw ID Plan of care dw nursing staff Nutritional Asmnt/Malnutr-PDOC - Dietary Evaluation Malnutrition Findings (Please click <Entered> for more info): Nutritional Asmnt/Malnutrition Start: 01/16/19 15: 50 Text: Status: Complete Freq: Protocol: Document 01/16/19 15:50 CRISTIAN (Rec: 01/16/19 15:55 CRISTIAN [email or web address]) Nutritional Asmnt/Malnutrition Patient General Information Nutritional Screening High Risk Consult Diagnosis Cellulitis Lower Abdominal Pertinent Medical Hx/Surgical Hx HTN, DM Subjective Information Consult: Diabetic, Blood sugar during admission - 316 Pt is a 43-year-old female admitted on 01/15 c/o abdominal wall redness and pain x3 days. Spoke to AARON Collier, Pt ate 100 % at breakfast and lunch today . Pt was sleeping at time of visit. Will follow up with Pt as high risk to provide nutrition education for glucose control if needed. May want to consider calories restricted diet d/t BMI 62.73 (Morbidly Obese). HT: 52 WT: 343 LB (155.9 kg) ADJ BW: 92.42 kg BMI: 62.73 (Morbidly Obese) GI: Large, Round, Swelling, Red, Warm to Touch BM: Not noted I/O: 100/Not Noted Skin: Warm, Dry, Tight, Abscess on RT Lower Abdomen Carl: 18 Diet Order: [facility] Estimated Energy Needs: (Obese III, ADJ BW) 0648-6868 kcals (20-25 kcals/ kg) 74-83g Pro (0.8-0.9 g/kg) 2943-9906 ml (25-30 ml/kg) Current Diet Order/ Nutrition Support [facility] Pertinent Medications INS-SS, Synthroid, Glucophage, Protonix Pertinent Labs 01/15: Hgb/Hct 12.8/37.5, Na 135 , Potass 3.2, Glucose 316, POC Glucose (last 24 hours) 251, 210 Nutritional Hx/Data Height 1.57 m Height (Calculated Centimeters) 157.5 Current Weight (lbs) 155.582 kg Weight (Calculated Kilograms) 155.6 Weight (Calculated Grams) 458774.2 [place] Body Weight 50.1 kg % [place] Body Weight 311 Body Mass Index (BMI) 62.7 Weight Status Morbidly Obese GI Symptoms GI Symptoms None Last BM Not noted Skin Integrity/Comment: Warm, Dry, Tight, Abscess on RT Lower Abdomen Carl: 18 Current %PO Good (75-100%) Estimated Nutritional Goals BEE in Kcals: Adj wt of IBW Calories/Kcals/Kg 20-25 Kcals Calculated 4767-3268 Protein: Adj wt of IBW Protein g/k.8-0.9 Protein Calculated 74-83 Fluid: ml 9199-0139 ml (25-30 ml/kg) Nutritional Problem 1. Problem Problem Altered nutrition related labs Etiology r/t endocrine dysfunction Signs/Symptoms: aeb lab result Glucose 316, POC Glucose (last 24 hours) 251, 210 Intervention/Recommendation Comments 1.Continue with [facility] diet as ordered. 2.Consider calories restricted diet. Expected Outcomes/Goals Expected Outcomes/Goals 1.PO intake to meet 75% of nutritional needs. 2.Monitor PO intake, wt, skin integrity, and nutrition related labs to trend WNL. 3.F/U as high risk in 2-3 days , 01/18-01/19
[2019-01-25] MEDS: INSULIN LISPRO SLIDING SCALE 100 UNITS/ML UNIT SUBQ SCH ×4 (06:31→22:25)
[2019-01-25] MEDS: Levothyroxine 0.088 Mg Tab PO SCH (06:38)
[2019-01-25] MEDS: Pantoprazole 40 mg EC Tab PO SCH (06:38)
[2019-01-25] MEDS: Lactobacillus Rhamnosus GG 15 Billion CFU CAP.SPRINK PO SCH ×2 (08:51→16:13)
[2019-01-25] MEDS: Acetaminophen 500 MG TAB PO PRN (11:25)
--- NOTE | 2019-01-25 12:46 | General Progress Note ---
Subjective - Review of Systems Subjective: Patient seen and examined no new concern reported Objective - Results Result Diagrams: 01/19/19 12:00 01/19/19 12:00 Recent Labs: Laboratory Last Values WBC 9.0 Th/cmm (4.8-10.8) 01/19/19 12:00 RBC 4.65 Mil/cmm (3.80-5.10) 01/19/19 12:00 Hgb 13.2 gm/dL (12-16) 01/19/19 12:00 Hct 39.6 % (41.0-60) L 01/19/19 12:00 MCV 85.2 fl (81-100) 01/19/19 12:00 MCH 28.4 pg (27.0-31.0) 01/19/19 12:00 MCHC Differential 33.4 pg (28.0-36.0) 01/19/19 12:00 RDW 12.6 % (11.5-20.0) 01/19/19 12:00 Plt Count 395 Th/cmm (150-400) 01/19/19 12:00 MPV 8.2 fl 01/19/19 12:00 Neutrophils % 59.9 % (40.0-80.0) 01/19/19 12:00 Lymphocytes % 32.9 % (20.0-50.0) 01/19/19 12:00 Monocytes % 4.5 % (2.0-10.0) 01/19/19 12:00 Eosinophils % 2.0 % (0.0-5.0) 01/19/19 12:00 Basophils % 0.7 % (0.0-2.0) 01/19/19 12:00 PT 10.0 SECONDS (9.5-11.5) 01/16/19 21:04 INR 0.96 (0.5-1.4) 01/16/19 21:04 PTT (Actin FS) 25.2 SECONDS (26.0-38.0) L 01/16/19 21:04 Sodium 132 mEq/L (136-145) L 01/19/19 12:00 Potassium 3.6 mEq/L (3.5-5.1) 01/19/19 12:00 Chloride 99 mEq/L (98-107) 01/19/19 12:00 Carbon Dioxide 23.8 mEq/L (21.0-31.0) 01/19/19 12:00 Anion Gap 12.8 (7.0-16.0) 01/19/19 12:00 BUN 9 mg/dL (7-25) 01/19/19 12:00 Creatinine 0.6 mg/dL (0.6-1.2) 01/19/19 12:00 Est GFR ( Amer) > 60.0 ml/min (>90) 01/19/19 12:00 Est GFR (Non-Af Amer) > 60.0 ml/min 01/19/19 12:00 BUN/Creatinine Ratio 15.0 01/19/19 12:00 Glucose 174 mg/dL (70-105) H 01/19/19 12:00 POC Glucose 174 MG/DL (70 - 105) H 01/25/19 11:12 Calcium 9.5 mg/dL (8.6-10.3) 01/19/19 12:00 Magnesium 1.9 mg/dL (1.9-2.7) 01/15/19 19:30 Total Bilirubin 0.4 mg/dL (0.3-1.0) 01/16/19 21:04 AST 21 U/L (13-39) 01/16/19 21:04 ALT 25 U/L (7-52) 01/16/19 21:04 Alkaline Phosphatase 69 U/L (34-104) 01/16/19 21:04 Total Protein 6.3 gm/dL (6.0-8.3) 01/16/19 21:04 Albumin 3.5 gm/dL (3.7-5.3) L 01/16/19 21:04 Globulin 2.8 gm/dL 01/16/19 21:04 Albumin/Globulin Ratio 1.3 (1.0-1.8) 01/16/19 21:04 Urine Source RANDOM 01/15/19 20:30 Urine Color YELLOW 01/15/19 20:30 Urine Clarity CLEAR (CLEAR) 01/15/19 20:30 Urine pH 6.0 (4.6 - 8.0) 01/15/19 20:30 Ur Specific [place] 1.020 (1.005-1.030) 01/15/19 20:30 Urine Protein NEGATIVE mg/dL (NEGATIVE) 01/15/19 20:30 Urine Glucose (UA) >=1000 mg/dL (NEGATIVE) H 01/15/19 20:30 Urine Ketones NEGATIVE mg/dL (NEGATIVE) 01/15/19 20:30 Urine Blood NEGATIVE (NEGATIVE) 01/15/19 20:30 Urine Nitrate NEGATIVE (NEGATIVE) 01/15/19 20:30 Urine Bilirubin NEGATIVE (NEGATIVE) 01/15/19 20:30 Urine Urobilinogen 1.0 E.U./dL (0.2 - 1.0) 01/15/19 20:30 Ur Leukocyte Esterase NEGATIVE (NEGATIVE) 01/15/19 20:30 Urine RBC 0-2 /hpf (0-5) 01/15/19 20:30 Urine WBC 0-2 /hpf (0-5) 01/15/19 20:30 Ur Epithelial Cells FEW /lpf (FEW) 01/15/19 20:30 Urine Bacteria FEW /hpf (NONE SEEN) 01/15/19 20:30 Vancomycin Trough 10.4 ug/mL (5-10) H 01/19/19 12:00 - Physical Exam Vitals and I&O: Vital Signs Temp 97.4 F 01/25/19 12:00 Pulse 91 01/25/19 12:00 Resp 18 01/25/19 12:00 BP 116/70 01/25/19 12:00 Pulse Ox 91 01/25/19 12:00 Intake & Output 01/24/19 01/25/19 01/25/19 18:59 06:59 18:59 Intake Total 1999 600 Balance 1999 600 Weight (lbs) 158.757 kg 158.757 kg Intake: Oral 1999 600 Other: # Voids 6 3 # Bowel Movements 0 Weight Source Bedscale Bedscale Active Medications: Current Medications Acetaminophen (Tylenol Extra Strength) 500 mg PO Q4H PRN PRN Reason: Pain (Moderate) Stop: 03/16/19 22:38 Last Admin: 01/25/19 11:25 Dose: 500 mg Ceftriaxone Sodium 2 gm/ (Sodium Chloride) 100 mls @ 100 mls/hr IV Q24H [facility] Stop: 03/19/19 15:44 Last Admin: 01/24/19 15:41 Dose: 100 mls/hr Insulin Human Lispro (Humalog Insulin Sliding Scale) 0 units SUBQ ACHS [facility]; Protocol Stop: 03/17/19 07:29 Last Admin: 01/25/19 11:17 Dose: 3 units Lactobacillus Rhamnosus (Culturelle 15b) 1 each PO BID [facility] Stop: 03/19/19 16:59 Last Admin: 01/25/19 08:51 Dose: 1 each Levothyroxine Sodium (Synthroid) 0.088 mg PO QDAC [facility] Stop: 03/17/19 07:29 Last Admin: 01/25/19 06:38 Dose: 0.088 mg Loratadine (Claritin) 10 mg PO DAILY [facility] Stop: 03/17/19 08:59 Last Admin: 01/25/19 08:51 Dose: 10 mg Metformin HCl (Glucophage) 500 mg PO BID [facility] Stop: 03/16/19 21:29 Last Admin: 01/25/19 08:50 Dose: 500 mg Miscellaneous (Vte Chemical Prophylaxis Screen/ Admission) 1 ea PRN PRN PRN Reason: PROTOCOL Stop: 03/17/19 10:20 Miscellaneous (Probiotic Screen) 1 ea PRN PRN PRN Reason: PROTOCOL Stop: 03/17/19 15:16 Pantoprazole Sodium (Protonix) 40 mg PO QDAC [facility] Stop: 03/17/19 07:29 Last Admin: 01/25/19 06:38 Dose: 40 mg Cardiovascular: Regular rate Lungs: Clear to auscultation Skin: Other (ABD wall erythema slightly better) - Procedures Procedures: Procedures Procedure Code Date EXCISION OF ESOPHAGOGASTRIC JUNCTION, ENDO, DIAGN [id number] 02/24/18 EXCISION OF STOMACH, PYLORUS, ENDO, DIAGN [id number] 02/24/18 Assessment/Plan - Assessment Assessment: ABD WALL CELLULITS DM II Diarrhea MORBID OBESITY - Plan Plan: Continue IV Antibiotics Local wound care Case dw ID Plan of care dw nursing staff Nutritional Asmnt/Malnutr-PDOC - Dietary Evaluation Malnutrition Findings (Please click <Entered> for more info): Nutritional Asmnt/Malnutrition Start: 01/16/19 15: 50 Text: Status: Complete Freq: Protocol: Document 01/16/19 15:50 CRISTIAN (Rec: 01/16/19 15:55 CRISTIAN [email or web address]) Nutritional Asmnt/Malnutrition Patient General Information Nutritional Screening High Risk Consult Diagnosis Cellulitis Lower Abdominal Pertinent Medical Hx/Surgical Hx HTN, DM Subjective Information Consult: Diabetic, Blood sugar during admission - 316 Pt is a 43-year-old female admitted on 01/15 c/o abdominal wall redness and pain x3 days. Spoke to AARON Collier, Pt ate 100 % at breakfast and lunch today . Pt was sleeping at time of visit. Will follow up with Pt as high risk to provide nutrition education for glucose control if needed. May want to consider calories restricted diet d/t BMI 62.73 (Morbidly Obese). HT: 52 WT: 343 LB (155.9 kg) ADJ BW: 92.42 kg BMI: 62.73 (Morbidly Obese) GI: Large, Round, Swelling, Red, Warm to Touch BM: Not noted I/O: 100/Not Noted Skin: Warm, Dry, Tight, Abscess on RT Lower Abdomen Carl: 18 Diet Order: [facility] Estimated Energy Needs: (Obese III, ADJ BW) 9183-2779 kcals (20-25 kcals/ kg) 74-83g Pro (0.8-0.9 g/kg) 1505-2298 ml (25-30 ml/kg) Current Diet Order/ Nutrition Support [facility] Pertinent Medications INS-SS, Synthroid, Glucophage, Protonix Pertinent Labs 01/15: Hgb/Hct 12.8/37.5, Na 135 , Potass 3.2, Glucose 316, POC Glucose (last 24 hours) 251, 210 Nutritional Hx/Data Height 1.57 m Height (Calculated Centimeters) 157.5 Current Weight (lbs) 155.582 kg Weight (Calculated Kilograms) 155.6 Weight (Calculated Grams) 207679.2 [place] Body Weight 50.1 kg % [place] Body Weight 311 Body Mass Index (BMI) 62.7 Weight Status Morbidly Obese GI Symptoms GI Symptoms None Last BM Not noted Skin Integrity/Comment: Warm, Dry, Tight, Abscess on RT Lower Abdomen Carl: 18 Current %PO Good (75-100%) Estimated Nutritional Goals BEE in Kcals: Adj wt of IBW Calories/Kcals/Kg 20-25 Kcals Calculated 7591-0979 Protein: Adj wt of IBW Protein g/k.8-0.9 Protein Calculated 74-83 Fluid: ml 2823-2584 ml (25-30 ml/kg) Nutritional Problem 1. Problem Problem Altered nutrition related labs Etiology r/t endocrine dysfunction Signs/Symptoms: aeb lab result Glucose 316, POC Glucose (last 24 hours) 251, 210 Intervention/Recommendation Comments 1.Continue with [facility] diet as ordered. 2.Consider calories restricted diet. Expected Outcomes/Goals Expected Outcomes/Goals 1.PO intake to meet 75% of nutritional needs. 2.Monitor PO intake, wt, skin integrity, and nutrition related labs to trend WNL. 3.F/U as high risk in 2-3 days , 01/18-01/19
[2019-01-25] MEDS: cefTRIAXone 2 GM in Sodium Chloride 0.9% 100 ML IV SCH (14:45)
[2019-01-26] MEDS: Levothyroxine 0.088 Mg Tab PO SCH (06:34)
[2019-01-26] MEDS: Pantoprazole 40 mg EC Tab PO SCH (06:35)
[2019-01-26] MEDS: Lactobacillus Rhamnosus GG 15 Billion CFU CAP.SPRINK PO SCH ×2 (08:21→17:18)
[2019-01-26] MEDS: INSULIN LISPRO SLIDING SCALE 100 UNITS/ML UNIT SUBQ SCH ×4 (08:21→21:32)
--- NOTE | 2019-01-26 12:40 | Infectious Disease Prog Note ---
Infectious Disease Subjective - Review of Systems Service Date: 01/26/19 Subjective: There is no new change, no fever. wound has closed. Infectious Disease Objective - Results Result Diagrams: 01/19/19 12:00 01/19/19 12:00 Recent Labs: Laboratory Last Values WBC 9.0 Th/cmm (4.8-10.8) 01/19/19 12:00 RBC 4.65 Mil/cmm (3.80-5.10) 01/19/19 12:00 Hgb 13.2 gm/dL (12-16) 01/19/19 12:00 Hct 39.6 % (41.0-60) L 01/19/19 12:00 MCV 85.2 fl (81-100) 01/19/19 12:00 MCH 28.4 pg (27.0-31.0) 01/19/19 12:00 MCHC Differential 33.4 pg (28.0-36.0) 01/19/19 12:00 RDW 12.6 % (11.5-20.0) 01/19/19 12:00 Plt Count 395 Th/cmm (150-400) 01/19/19 12:00 MPV 8.2 fl 01/19/19 12:00 Neutrophils % 59.9 % (40.0-80.0) 01/19/19 12:00 Lymphocytes % 32.9 % (20.0-50.0) 01/19/19 12:00 Monocytes % 4.5 % (2.0-10.0) 01/19/19 12:00 Eosinophils % 2.0 % (0.0-5.0) 01/19/19 12:00 Basophils % 0.7 % (0.0-2.0) 01/19/19 12:00 PT 10.0 SECONDS (9.5-11.5) 01/16/19 21:04 INR 0.96 (0.5-1.4) 01/16/19 21:04 PTT (Actin FS) 25.2 SECONDS (26.0-38.0) L 01/16/19 21:04 Sodium 132 mEq/L (136-145) L 01/19/19 12:00 Potassium 3.6 mEq/L (3.5-5.1) 01/19/19 12:00 Chloride 99 mEq/L (98-107) 01/19/19 12:00 Carbon Dioxide 23.8 mEq/L (21.0-31.0) 01/19/19 12:00 Anion Gap 12.8 (7.0-16.0) 01/19/19 12:00 BUN 9 mg/dL (7-25) 01/19/19 12:00 Creatinine 0.6 mg/dL (0.6-1.2) 01/19/19 12:00 Est GFR ( Amer) > 60.0 ml/min (>90) 01/19/19 12:00 Est GFR (Non-Af Amer) > 60.0 ml/min 01/19/19 12:00 BUN/Creatinine Ratio 15.0 01/19/19 12:00 Glucose 174 mg/dL (70-105) H 01/19/19 12:00 POC Glucose 149 MG/DL (70 - 105) H 01/26/19 11:31 Calcium 9.5 mg/dL (8.6-10.3) 01/19/19 12:00 Magnesium 1.9 mg/dL (1.9-2.7) 01/15/19 19:30 Total Bilirubin 0.4 mg/dL (0.3-1.0) 01/16/19 21:04 AST 21 U/L (13-39) 01/16/19 21:04 ALT 25 U/L (7-52) 01/16/19 21:04 Alkaline Phosphatase 69 U/L (34-104) 01/16/19 21:04 Total Protein 6.3 gm/dL (6.0-8.3) 01/16/19 21:04 Albumin 3.5 gm/dL (3.7-5.3) L 01/16/19 21:04 Globulin 2.8 gm/dL 01/16/19 21:04 Albumin/Globulin Ratio 1.3 (1.0-1.8) 01/16/19 21:04 Urine Source RANDOM 01/15/19 20:30 Urine Color YELLOW 01/15/19 20:30 Urine Clarity CLEAR (CLEAR) 01/15/19 20:30 Urine pH 6.0 (4.6 - 8.0) 01/15/19 20:30 Ur Specific [place] 1.020 (1.005-1.030) 01/15/19 20:30 Urine Protein NEGATIVE mg/dL (NEGATIVE) 01/15/19 20:30 Urine Glucose (UA) >=1000 mg/dL (NEGATIVE) H 01/15/19 20:30 Urine Ketones NEGATIVE mg/dL (NEGATIVE) 01/15/19 20:30 Urine Blood NEGATIVE (NEGATIVE) 01/15/19 20:30 Urine Nitrate NEGATIVE (NEGATIVE) 01/15/19 20:30 Urine Bilirubin NEGATIVE (NEGATIVE) 01/15/19 20:30 Urine Urobilinogen 1.0 E.U./dL (0.2 - 1.0) 01/15/19 20:30 Ur Leukocyte Esterase NEGATIVE (NEGATIVE) 01/15/19 20:30 Urine RBC 0-2 /hpf (0-5) 01/15/19 20:30 Urine WBC 0-2 /hpf (0-5) 01/15/19 20:30 Ur Epithelial Cells FEW /lpf (FEW) 01/15/19 20:30 Urine Bacteria FEW /hpf (NONE SEEN) 01/15/19 20:30 Vancomycin Trough 10.4 ug/mL (5-10) H 01/19/19 12:00 - Physical Exam Vitals and I&O: Vital Signs Temp 97.7 F 01/26/19 11:37 Pulse 86 01/26/19 11:37 Resp 18 01/26/19 11:37 BP 111/61 01/26/19 11:37 Pulse Ox 96 01/26/19 11:37 Intake & Output 01/25/19 01/26/19 01/26/19 18:59 06:59 18:59 Intake Total 450 800 Balance 450 800 Weight (lbs) 158.757 kg 158.757 kg Intake: Oral 450 800 Other: # Voids 3 3 # Bowel Movements 0 0 Weight Source Bedscale Bedscale Active Medications: Current Medications Acetaminophen (Tylenol Extra Strength) 500 mg PO Q4H PRN PRN Reason: Pain (Moderate) Stop: 03/16/19 22:38 Last Admin: 01/25/19 11:25 Dose: 500 mg Ceftriaxone Sodium 2 gm/ (Sodium Chloride) 100 mls @ 100 mls/hr IV Q24H [facility] Stop: 03/19/19 15:44 Last Admin: 01/25/19 14:45 Dose: 100 mls/hr Insulin Human Lispro (Humalog Insulin Sliding Scale) 0 units SUBQ ACHS [facility]; Protocol Stop: 03/17/19 07:29 Last Admin: 01/26/19 11:43 Dose: Not Given Lactobacillus Rhamnosus (Culturelle 15b) 1 each PO BID [facility] Stop: 03/19/19 16:59 Last Admin: 01/26/19 08:21 Dose: 1 each Levothyroxine Sodium (Synthroid) 0.088 mg PO QDAC [facility] Stop: 03/17/19 07:29 Last Admin: 01/26/19 06:34 Dose: 0.088 mg Loratadine (Claritin) 10 mg PO DAILY [facility] Stop: 03/17/19 08:59 Last Admin: 01/26/19 08:21 Dose: 10 mg Metformin HCl (Glucophage) 500 mg PO BID [facility] Stop: 03/16/19 21:29 Last Admin: 01/26/19 08:21 Dose: 500 mg Miscellaneous (Vte Chemical Prophylaxis Screen/ Admission) 1 [facility] PRN PRN PRN Reason: PROTOCOL Stop: 03/17/19 10:20 Miscellaneous (Probiotic Screen) 1 [facility] PRN PRN PRN Reason: PROTOCOL Stop: 03/17/19 15:16 Pantoprazole Sodium (Protonix) 40 mg PO QDAC [facility] Stop: 03/17/19 07:29 Last Admin: 01/26/19 06:35 Dose: 40 mg General: no acute distress, well developed, well nourished, other (Obese) HEENT: atraumatic, normocephalic, PERRLA, EOMI, moist mucous membrane Neck: supple, no thyromegaly Cardiovascular: S1S2, regular Lungs: clear to auscultation bilaterally, clear to percussion Abdomen: soft, other (RLQ wound has closed with slough and granulation tissue. There is surrounding erythema,.), no tender, no distended Extremities: no cyanosis, no clubbing, no edema - Procedures Procedures: Procedures Procedure Code Date EXCISION OF ESOPHAGOGASTRIC JUNCTION, ENDO, DIAGN [id number] 02/24/18 EXCISION OF STOMACH, PYLORUS, ENDO, DIAGN [id number] 02/24/18 Infectious Disease Assmt/Plan - Assessment Assessment: 1. Right lower quadrant abdominal abscess with cellulitis. 2. Morbid obesity with a BMI of 63. 3. Diabetes mellitus type 2. 4. Hypertension. 5. Suspect sleep apnea. - Plan Plan: Continue rocephin for two more weeks. may need SNF placement, preferred over HH with IV antibiotic at home. Wound care. Nutritional Asmnt/Malnutr-PDOC - Dietary Evaluation Malnutrition Findings (Please click <Entered> for more info): Nutritional Asmnt/Malnutrition Start: 01/16/19 15: 50 Text: Status: Complete Freq: Protocol: Document 01/16/19 15:50 CHANTELLREBECCA (Rec: 01/16/19 15:55 CRISTIAN [email or web address]) Nutritional Asmnt/Malnutrition Patient General Information Nutritional Screening High Risk Consult Diagnosis Cellulitis Lower Abdominal Pertinent Medical Hx/Surgical Hx HTN, DM Subjective Information Consult: Diabetic, Blood sugar during admission - 316 Pt is a 43-year-old female admitted on 01/15 c/o abdominal wall redness and pain x3 days. Spoke to AARON Collier, Pt ate 100 % at breakfast and lunch today . Pt was sleeping at time of visit. Will follow up with Pt as high risk to provide nutrition education for glucose control if needed. May want to consider calories restricted diet d/t BMI 62.73 (Morbidly Obese). HT: 52 WT: 343 LB (155.9 kg) ADJ BW: 92.42 kg BMI: 62.73 (Morbidly Obese) GI: Large, Round, Swelling, Red, Warm to Touch BM: Not noted I/O: 100/Not Noted Skin: Warm, Dry, Tight, Abscess on RT Lower Abdomen Carl: 18 Diet Order: [facility] Estimated Energy Needs: (Obese III, ADJ BW) 9893-2025 kcals (20-25 kcals/ kg) 74-83g Pro (0.8-0.9 g/kg) 8462-8078 ml (25-30 ml/kg) Current Diet Order/ Nutrition Support [facility] Pertinent Medications INS-SS, Synthroid, Glucophage, Protonix Pertinent Labs 01/15: Hgb/Hct 12.8/37.5, Na 135 , Potass 3.2, Glucose 316, POC Glucose (last 24 hours) 251, 210 Nutritional Hx/Data Height 1.57 m Height (Calculated Centimeters) 157.5 Current Weight (lbs) 155.582 kg Weight (Calculated Kilograms) 155.6 Weight (Calculated Grams) 638570.2 [place] Body Weight 50.1 kg % [place] Body Weight 311 Body Mass Index (BMI) 62.7 Weight Status Morbidly Obese GI Symptoms GI Symptoms None Last BM Not noted Skin Integrity/Comment: Warm, Dry, Tight, Abscess on RT Lower Abdomen Carl: 18 Current %PO Good (75-100%) Estimated Nutritional Goals BEE in Kcals: Adj wt of IBW Calories/Kcals/Kg 20-25 Kcals Calculated 0396-3581 Protein: Adj wt of IBW Protein g/k.8-0.9 Protein Calculated 74-83 Fluid: ml 2088-4247 ml (25-30 ml/kg) Nutritional Problem 1. Problem Problem Altered nutrition related labs Etiology r/t endocrine dysfunction Signs/Symptoms: aeb lab result Glucose 316, POC Glucose (last 24 hours) 251, 210 Intervention/Recommendation Comments 1.Continue with [facility] diet as ordered. 2.Consider calories restricted diet. Expected Outcomes/Goals Expected Outcomes/Goals 1.PO intake to meet 75% of nutritional needs. 2.Monitor PO intake, wt, skin integrity, and nutrition related labs to trend WNL. 3.F/U as high risk in 2-3 days , 01/18-01/19
[2019-01-26] MEDS: cefTRIAXone 2 GM in Sodium Chloride 0.9% 100 ML IV SCH (16:41)
--- NOTE | 2019-01-26 22:10 | General Progress Note ---
Subjective - Review of Systems Service Date: 01/26/19 Subjective: Patient seen and examined no new concern reported Objective - Results Result Diagrams: 01/19/19 12:00 01/19/19 12:00 Recent Labs: Laboratory Last Values WBC 9.0 Th/cmm (4.8-10.8) 01/19/19 12:00 RBC 4.65 Mil/cmm (3.80-5.10) 01/19/19 12:00 Hgb 13.2 gm/dL (12-16) 01/19/19 12:00 Hct 39.6 % (41.0-60) L 01/19/19 12:00 MCV 85.2 fl (81-100) 01/19/19 12:00 MCH 28.4 pg (27.0-31.0) 01/19/19 12:00 MCHC Differential 33.4 pg (28.0-36.0) 01/19/19 12:00 RDW 12.6 % (11.5-20.0) 01/19/19 12:00 Plt Count 395 Th/cmm (150-400) 01/19/19 12:00 MPV 8.2 fl 01/19/19 12:00 Neutrophils % 59.9 % (40.0-80.0) 01/19/19 12:00 Lymphocytes % 32.9 % (20.0-50.0) 01/19/19 12:00 Monocytes % 4.5 % (2.0-10.0) 01/19/19 12:00 Eosinophils % 2.0 % (0.0-5.0) 01/19/19 12:00 Basophils % 0.7 % (0.0-2.0) 01/19/19 12:00 PT 10.0 SECONDS (9.5-11.5) 01/16/19 21:04 INR 0.96 (0.5-1.4) 01/16/19 21:04 PTT (Actin FS) 25.2 SECONDS (26.0-38.0) L 01/16/19 21:04 Sodium 132 mEq/L (136-145) L 01/19/19 12:00 Potassium 3.6 mEq/L (3.5-5.1) 01/19/19 12:00 Chloride 99 mEq/L (98-107) 01/19/19 12:00 Carbon Dioxide 23.8 mEq/L (21.0-31.0) 01/19/19 12:00 Anion Gap 12.8 (7.0-16.0) 01/19/19 12:00 BUN 9 mg/dL (7-25) 01/19/19 12:00 Creatinine 0.6 mg/dL (0.6-1.2) 01/19/19 12:00 Est GFR ( Amer) > 60.0 ml/min (>90) 01/19/19 12:00 Est GFR (Non-Af Amer) > 60.0 ml/min 01/19/19 12:00 BUN/Creatinine Ratio 15.0 01/19/19 12:00 Glucose 174 mg/dL (70-105) H 01/19/19 12:00 POC Glucose 208 MG/DL (70 - 105) H 01/26/19 21:20 Calcium 9.5 mg/dL (8.6-10.3) 01/19/19 12:00 Magnesium 1.9 mg/dL (1.9-2.7) 01/15/19 19:30 Total Bilirubin 0.4 mg/dL (0.3-1.0) 01/16/19 21:04 AST 21 U/L (13-39) 01/16/19 21:04 ALT 25 U/L (7-52) 01/16/19 21:04 Alkaline Phosphatase 69 U/L (34-104) 01/16/19 21:04 Total Protein 6.3 gm/dL (6.0-8.3) 01/16/19 21:04 Albumin 3.5 gm/dL (3.7-5.3) L 01/16/19 21:04 Globulin 2.8 gm/dL 01/16/19 21:04 Albumin/Globulin Ratio 1.3 (1.0-1.8) 01/16/19 21:04 Urine Source RANDOM 01/15/19 20:30 Urine Color YELLOW 01/15/19 20:30 Urine Clarity CLEAR (CLEAR) 01/15/19 20:30 Urine pH 6.0 (4.6 - 8.0) 01/15/19 20:30 Ur Specific [place] 1.020 (1.005-1.030) 01/15/19 20:30 Urine Protein NEGATIVE mg/dL (NEGATIVE) 01/15/19 20:30 Urine Glucose (UA) >=1000 mg/dL (NEGATIVE) H 01/15/19 20:30 Urine Ketones NEGATIVE mg/dL (NEGATIVE) 01/15/19 20:30 Urine Blood NEGATIVE (NEGATIVE) 01/15/19 20:30 Urine Nitrate NEGATIVE (NEGATIVE) 01/15/19 20:30 Urine Bilirubin NEGATIVE (NEGATIVE) 01/15/19 20:30 Urine Urobilinogen 1.0 E.U./dL (0.2 - 1.0) 01/15/19 20:30 Ur Leukocyte Esterase NEGATIVE (NEGATIVE) 01/15/19 20:30 Urine RBC 0-2 /hpf (0-5) 01/15/19 20:30 Urine WBC 0-2 /hpf (0-5) 01/15/19 20:30 Ur Epithelial Cells FEW /lpf (FEW) 01/15/19 20:30 Urine Bacteria FEW /hpf (NONE SEEN) 01/15/19 20:30 Vancomycin Trough 10.4 ug/mL (5-10) H 01/19/19 12:00 - Physical Exam Vitals and I&O: Vital Signs Temp 97.2 F 01/26/19 20:00 Pulse 87 01/26/19 20:00 Resp 17 01/26/19 20:00 BP 127/48 01/26/19 20:00 Pulse Ox 98 01/26/19 20:00 Intake & Output 01/26/19 01/26/19 01/27/19 06:59 18:59 06:59 Intake Total 800 1400 Balance 800 1400 Weight (lbs) 158.757 kg 158.757 kg Intake: Oral 800 1400 Other: # Voids 3 3 # Bowel Movements 0 Weight Source Bedscale Bedscale Active Medications: Current Medications Acetaminophen (Tylenol Extra Strength) 500 mg PO Q4H PRN PRN Reason: Pain (Moderate) Stop: 03/16/19 22:38 Last Admin: 01/25/19 11:25 Dose: 500 mg Ceftriaxone Sodium 2 gm/ (Sodium Chloride) 100 mls @ 100 mls/hr IV Q24H [facility] Stop: 03/19/19 15:44 Last Admin: 01/26/19 16:41 Dose: 100 mls/hr Insulin Human Lispro (Humalog Insulin Sliding Scale) 0 units SUBQ ACHS [facility]; Protocol Stop: 03/17/19 07:29 Last Admin: 01/26/19 21:32 Dose: 5 units Lactobacillus Rhamnosus (Culturelle 15b) 1 each PO BID [facility] Stop: 03/19/19 16:59 Last Admin: 01/26/19 17:18 Dose: 1 each Levothyroxine Sodium (Synthroid) 0.088 mg PO QDAC [facility] Stop: 03/17/19 07:29 Last Admin: 01/26/19 06:34 Dose: 0.088 mg Loratadine (Claritin) 10 mg PO DAILY [facility] Stop: 03/17/19 08:59 Last Admin: 01/26/19 08:21 Dose: 10 mg Metformin HCl (Glucophage) 500 mg PO BID [facility] Stop: 03/16/19 21:29 Last Admin: 01/26/19 17:18 Dose: 500 mg Miscellaneous (Vte Chemical Prophylaxis Screen/ Admission) 1 [facility] PRN PRN PRN Reason: PROTOCOL Stop: 03/17/19 10:20 Miscellaneous (Probiotic Screen) 1 [facility] PRN PRN PRN Reason: PROTOCOL Stop: 03/17/19 15:16 Pantoprazole Sodium (Protonix) 40 mg PO QDAC [facility] Stop: 03/17/19 07:29 Last Admin: 01/26/19 06:35 Dose: 40 mg Cardiovascular: Regular rate Lungs: Clear to auscultation Skin: Other (ABD wall erythema with some discharge) - Procedures Procedures: Procedures Procedure Code Date EXCISION OF ESOPHAGOGASTRIC JUNCTION, ENDO, DIAGN [id number] 02/24/18 EXCISION OF STOMACH, PYLORUS, ENDO, DIAGN [id number] 02/24/18 Assessment/Plan - Assessment Assessment: ABD WALL CELLULITS DM II Diarrhea MORBID OBESITY - Plan Plan: Continue IV Antibiotics Local wound care SNIF DC plan Patient and family was updated on plan of care they are aware Plan of care dw nursing staff Nutritional Asmnt/Malnutr-PDOC - Dietary Evaluation Malnutrition Findings (Please click <Entered> for more info): Nutritional Asmnt/Malnutrition Start: 01/16/19 15: 50 Text: Status: Complete Freq: Protocol: Document 01/16/19 15:50 CRISTIAN (Rec: 01/16/19 15:55 CRISTIAN [email or web address]) Nutritional Asmnt/Malnutrition Patient General Information Nutritional Screening High Risk Consult Diagnosis Cellulitis Lower Abdominal Pertinent Medical Hx/Surgical Hx HTN, DM Subjective Information Consult: Diabetic, Blood sugar during admission - 316 Pt is a 43-year-old female admitted on 01/15 c/o abdominal wall redness and pain x3 days. Spoke to AARON Collier, Pt ate 100 % at breakfast and lunch today . Pt was sleeping at time of visit. Will follow up with Pt as high risk to provide nutrition education for glucose control if needed. May want to consider calories restricted diet d/t BMI 62.73 (Morbidly Obese). HT: 52 WT: 343 LB (155.9 kg) ADJ BW: 92.42 kg BMI: 62.73 (Morbidly Obese) GI: Large, Round, Swelling, Red, Warm to Touch BM: Not noted I/O: 100/Not Noted Skin: Warm, Dry, Tight, Abscess on RT Lower Abdomen Carl: 18 Diet Order: [facility] Estimated Energy Needs: (Obese III, ADJ BW) 9829-0440 kcals (20-25 kcals/ kg) 74-83g Pro (0.8-0.9 g/kg) 0705-0499 ml (25-30 ml/kg) Current Diet Order/ Nutrition Support [facility] Pertinent Medications INS-SS, Synthroid, Glucophage, Protonix Pertinent Labs 01/15: Hgb/Hct 12.8/37.5, Na 135 , Potass 3.2, Glucose 316, POC Glucose (last 24 hours) 251, 210 Nutritional Hx/Data Height 1.57 m Height (Calculated Centimeters) 157.5 Current Weight (lbs) 155.582 kg Weight (Calculated Kilograms) 155.6 Weight (Calculated Grams) 977164.2 [place] Body Weight 50.1 kg % [place] Body Weight 311 Body Mass Index (BMI) 62.7 Weight Status Morbidly Obese GI Symptoms GI Symptoms None Last BM Not noted Skin Integrity/Comment: Warm, Dry, Tight, Abscess on RT Lower Abdomen Carl: 18 Current %PO Good (75-100%) Estimated Nutritional Goals BEE in Kcals: Adj wt of IBW Calories/Kcals/Kg 20-25 Kcals Calculated 5654-2070 Protein: Adj wt of IBW Protein g/k.8-0.9 Protein Calculated 74-83 Fluid: ml 0424-3113 ml (25-30 ml/kg) Nutritional Problem 1. Problem Problem Altered nutrition related labs Etiology r/t endocrine dysfunction Signs/Symptoms: aeb lab result Glucose 316, POC Glucose (last 24 hours) 251, 210 Intervention/Recommendation Comments 1.Continue with [facility] diet as ordered. 2.Consider calories restricted diet. Expected Outcomes/Goals Expected Outcomes/Goals 1.PO intake to meet 75% of nutritional needs. 2.Monitor PO intake, wt, skin integrity, and nutrition related labs to trend WNL. 3.F/U as high risk in 2-3 days , 01/18-01/19
[2019-01-27] MEDS: Levothyroxine 0.088 Mg Tab PO SCH (06:54)
[2019-01-27] MEDS: Pantoprazole 40 mg EC Tab PO SCH (06:54)
[2019-01-27] MEDS: INSULIN LISPRO SLIDING SCALE 100 UNITS/ML UNIT SUBQ SCH ×4 (06:56→20:34)
[2019-01-27] MEDS: Lactobacillus Rhamnosus GG 15 Billion CFU CAP.SPRINK PO SCH ×2 (08:21→17:25)
[2019-01-27] MEDS: cefTRIAXone 2 GM in Sodium Chloride 0.9% 100 ML IV SCH (15:42)
[2019-01-27] MEDS: Acetaminophen 500 MG TAB PO PRN (15:45)
--- NOTE | 2019-01-27 21:28 | General Progress Note ---
Subjective - Review of Systems Service Date: 01/27/19 Subjective: Patient seen and examined no new concern reported Objective - Results Result Diagrams: 01/19/19 12:00 01/19/19 12:00 Recent Labs: Laboratory Last Values WBC 9.0 Th/cmm (4.8-10.8) 01/19/19 12:00 RBC 4.65 Mil/cmm (3.80-5.10) 01/19/19 12:00 Hgb 13.2 gm/dL (12-16) 01/19/19 12:00 Hct 39.6 % (41.0-60) L 01/19/19 12:00 MCV 85.2 fl (81-100) 01/19/19 12:00 MCH 28.4 pg (27.0-31.0) 01/19/19 12:00 MCHC Differential 33.4 pg (28.0-36.0) 01/19/19 12:00 RDW 12.6 % (11.5-20.0) 01/19/19 12:00 Plt Count 395 Th/cmm (150-400) 01/19/19 12:00 MPV 8.2 fl 01/19/19 12:00 Neutrophils % 59.9 % (40.0-80.0) 01/19/19 12:00 Lymphocytes % 32.9 % (20.0-50.0) 01/19/19 12:00 Monocytes % 4.5 % (2.0-10.0) 01/19/19 12:00 Eosinophils % 2.0 % (0.0-5.0) 01/19/19 12:00 Basophils % 0.7 % (0.0-2.0) 01/19/19 12:00 PT 10.0 SECONDS (9.5-11.5) 01/16/19 21:04 INR 0.96 (0.5-1.4) 01/16/19 21:04 PTT (Actin FS) 25.2 SECONDS (26.0-38.0) L 01/16/19 21:04 Sodium 132 mEq/L (136-145) L 01/19/19 12:00 Potassium 3.6 mEq/L (3.5-5.1) 01/19/19 12:00 Chloride 99 mEq/L (98-107) 01/19/19 12:00 Carbon Dioxide 23.8 mEq/L (21.0-31.0) 01/19/19 12:00 Anion Gap 12.8 (7.0-16.0) 01/19/19 12:00 BUN 9 mg/dL (7-25) 01/19/19 12:00 Creatinine 0.6 mg/dL (0.6-1.2) 01/19/19 12:00 Est GFR ( Amer) > 60.0 ml/min (>90) 01/19/19 12:00 Est GFR (Non-Af Amer) > 60.0 ml/min 01/19/19 12:00 BUN/Creatinine Ratio 15.0 01/19/19 12:00 Glucose 174 mg/dL (70-105) H 01/19/19 12:00 POC Glucose 174 MG/DL (70 - 105) H 01/27/19 16:49 Calcium 9.5 mg/dL (8.6-10.3) 01/19/19 12:00 Magnesium 1.9 mg/dL (1.9-2.7) 01/15/19 19:30 Total Bilirubin 0.4 mg/dL (0.3-1.0) 01/16/19 21:04 AST 21 U/L (13-39) 01/16/19 21:04 ALT 25 U/L (7-52) 01/16/19 21:04 Alkaline Phosphatase 69 U/L (34-104) 01/16/19 21:04 Total Protein 6.3 gm/dL (6.0-8.3) 01/16/19 21:04 Albumin 3.5 gm/dL (3.7-5.3) L 01/16/19 21:04 Globulin 2.8 gm/dL 01/16/19 21:04 Albumin/Globulin Ratio 1.3 (1.0-1.8) 01/16/19 21:04 Urine Source RANDOM 01/15/19 20:30 Urine Color YELLOW 01/15/19 20:30 Urine Clarity CLEAR (CLEAR) 01/15/19 20:30 Urine pH 6.0 (4.6 - 8.0) 01/15/19 20:30 Ur Specific [place] 1.020 (1.005-1.030) 01/15/19 20:30 Urine Protein NEGATIVE mg/dL (NEGATIVE) 01/15/19 20:30 Urine Glucose (UA) >=1000 mg/dL (NEGATIVE) H 01/15/19 20:30 Urine Ketones NEGATIVE mg/dL (NEGATIVE) 01/15/19 20:30 Urine Blood NEGATIVE (NEGATIVE) 01/15/19 20:30 Urine Nitrate NEGATIVE (NEGATIVE) 01/15/19 20:30 Urine Bilirubin NEGATIVE (NEGATIVE) 01/15/19 20:30 Urine Urobilinogen 1.0 E.U./dL (0.2 - 1.0) 01/15/19 20:30 Ur Leukocyte Esterase NEGATIVE (NEGATIVE) 01/15/19 20:30 Urine RBC 0-2 /hpf (0-5) 01/15/19 20:30 Urine WBC 0-2 /hpf (0-5) 01/15/19 20:30 Ur Epithelial Cells FEW /lpf (FEW) 01/15/19 20:30 Urine Bacteria FEW /hpf (NONE SEEN) 01/15/19 20:30 Vancomycin Trough 10.4 ug/mL (5-10) H 01/19/19 12:00 - Physical Exam Vitals and I&O: Vital Signs Temp 97.9 F 01/27/19 16:00 Pulse 82 01/27/19 16:00 Resp 18 01/27/19 16:00 BP 126/78 01/27/19 16:00 Pulse Ox 97 01/27/19 16:00 Intake & Output 01/27/19 01/27/19 01/28/19 06:59 18:59 06:59 Intake Total 500 Output Total 500 Balance 0 Weight (lbs) 158.757 kg 158.757 kg Intake: Oral 500 Output: Urine 500 Other: # Voids 2 # Bowel Movements 1 Weight Source Bedscale Bedscale Active Medications: Current Medications Acetaminophen (Tylenol Extra Strength) 500 mg PO Q4H PRN PRN Reason: Pain (Moderate) Stop: 03/16/19 22:38 Last Admin: 01/27/19 15:45 Dose: 500 mg Ceftriaxone Sodium 2 gm/ (Sodium Chloride) 100 mls @ 100 mls/hr IV Q24H [facility] Stop: 03/19/19 15:44 Last Admin: 01/27/19 15:42 Dose: 100 mls/hr Insulin Human Lispro (Humalog Insulin Sliding Scale) 0 units SUBQ ACHS [facility]; Protocol Stop: 03/17/19 07:29 Last Admin: 01/27/19 20:34 Dose: Not Given Lactobacillus Rhamnosus (Culturelle 15b) 1 each PO BID [facility] Stop: 03/19/19 16:59 Last Admin: 01/27/19 17:25 Dose: 1 each Levothyroxine Sodium (Synthroid) 0.088 mg PO QDAC [facility] Stop: 03/17/19 07:29 Last Admin: 01/27/19 06:54 Dose: 0.088 mg Loratadine (Claritin) 10 mg PO DAILY [facility] Stop: 03/17/19 08:59 Last Admin: 01/27/19 08:21 Dose: 10 mg Metformin HCl (Glucophage) 500 mg PO BID [facility] Stop: 03/16/19 21:29 Last Admin: 01/27/19 17:25 Dose: 500 mg Miscellaneous (Vte Chemical Prophylaxis Screen/ Admission) 1 ea PRN PRN PRN Reason: PROTOCOL Stop: 03/17/19 10:20 Miscellaneous (Probiotic Screen) 1 [facility] PRN PRN PRN Reason: PROTOCOL Stop: 03/17/19 15:16 Pantoprazole Sodium (Protonix) 40 mg PO QDAC [facility] Stop: 03/17/19 07:29 Last Admin: 01/27/19 06:54 Dose: 40 mg Cardiovascular: Regular rate Lungs: Clear to auscultation Skin: Other (ABD wall erythema with some discharge) - Procedures Procedures: Procedures Procedure Code Date EXCISION OF ESOPHAGOGASTRIC JUNCTION, ENDO, DIAGN [id number] 02/24/18 EXCISION OF STOMACH, PYLORUS, ENDO, DIAGN [id number] 02/24/18 Assessment/Plan - Assessment Assessment: ABD WALL CELLULITS DM II Diarrhea MORBID OBESITY - Plan Plan: Continue IV Antibiotics Local wound care SNIF DC plan Patient and family was updated on plan of care they are aware Plan of care dw nursing staff Nutritional Asmnt/Malnutr-PDOC - Dietary Evaluation Malnutrition Findings (Please click <Entered> for more info): Nutritional Asmnt/Malnutrition Start: 01/16/19 15: 50 Text: Status: Complete Freq: Protocol: Document 01/16/19 15:50 CRISTIAN (Rec: 01/16/19 15:55 CRISTIAN [email or web address]) Nutritional Asmnt/Malnutrition Patient General Information Nutritional Screening High Risk Consult Diagnosis Cellulitis Lower Abdominal Pertinent Medical Hx/Surgical Hx HTN, DM Subjective Information Consult: Diabetic, Blood sugar during admission - 316 Pt is a 43-year-old female admitted on 01/15 c/o abdominal wall redness and pain x3 days. Spoke to AARON Collier, Pt ate 100 % at breakfast and lunch today . Pt was sleeping at time of visit. Will follow up with Pt as high risk to provide nutrition education for glucose control if needed. May want to consider calories restricted diet d/t BMI 62.73 (Morbidly Obese). HT: 52 WT: 343 LB (155.9 kg) ADJ BW: 92.42 kg BMI: 62.73 (Morbidly Obese) GI: Large, Round, Swelling, Red, Warm to Touch BM: Not noted I/O: 100/Not Noted Skin: Warm, Dry, Tight, Abscess on RT Lower Abdomen Carl: 18 Diet Order: [facility] Estimated Energy Needs: (Obese III, ADJ BW) 4850-3301 kcals (20-25 kcals/ kg) 74-83g Pro (0.8-0.9 g/kg) 9419-2200 ml (25-30 ml/kg) Current Diet Order/ [facility] Pertinent Medications INS-SS, Synthroid, Glucophage, Protonix Pertinent Labs 01/15: Hgb/Hct 12.8/37.5, Na 135 , Potass 3.2, Glucose 316, POC Glucose (last 24 hours) 251, 210 Nutritional Hx/Data Height 1.57 m Height (Calculated Centimeters) 157.5 Current Weight (lbs) 155.582 kg Weight (Calculated Kilograms) 155.6 Weight (Calculated Grams) 973131.2 [place] Body Weight 50.1 kg % [place] Body Weight 311 Body Mass Index (BMI) 62.7 Weight Status Morbidly Obese GI Symptoms GI Symptoms None Last BM Not noted Skin Integrity/Comment: Warm, Dry, Tight, Abscess on RT Lower Abdomen Carl: 18 Current %PO Good (75-100%) Estimated Nutritional Goals BEE in Kcals: Adj wt of IBW Calories/Kcals/Kg 20-25 Kcals Calculated 1379-8649 Protein: Adj wt of IBW Protein g/k.8-0.9 Protein Calculated 74-83 Fluid: ml 9864-1415 ml (25-30 ml/kg) Nutritional Problem 1. Problem Problem Altered nutrition related labs Etiology r/t endocrine dysfunction Signs/Symptoms: aeb lab result Glucose 316, POC Glucose (last 24 hours) 251, 210 Intervention/Recommendation Comments 1.Continue with [facility] diet as ordered. 2.Consider calories restricted diet. Expected Outcomes/Goals Expected Outcomes/Goals 1.PO intake to meet 75% of nutritional needs. 2.Monitor PO intake, wt, skin integrity, and nutrition related labs to trend WNL. 3.F/U as high risk in 2-3 days , 01/18-01/19
[2019-01-28] MEDS: Acetaminophen 500 MG TAB PO PRN ×2 (01:51→10:24)
[2019-01-28] MEDS: INSULIN LISPRO SLIDING SCALE 100 UNITS/ML UNIT SUBQ SCH ×4 (06:32→20:18)
[2019-01-28] MEDS: Levothyroxine 0.088 Mg Tab PO SCH (06:32)
[2019-01-28] MEDS: Pantoprazole 40 mg EC Tab PO SCH (06:32)
[2019-01-28] MEDS: Lactobacillus Rhamnosus GG 15 Billion CFU CAP.SPRINK PO SCH ×2 (08:03→16:11)
[2019-01-28] MEDS: cefTRIAXone 2 GM in Sodium Chloride 0.9% 100 ML IV SCH (15:02)
--- NOTE | 2019-01-28 22:58 | General Progress Note ---
Subjective - Review of Systems Service Date: 01/28/19 Subjective: Patient seen and examined no new concern reported Objective - Results Result Diagrams: 01/19/19 12:00 01/19/19 12:00 Recent Labs: Laboratory Last Values WBC 9.0 Th/cmm (4.8-10.8) 01/19/19 12:00 RBC 4.65 Mil/cmm (3.80-5.10) 01/19/19 12:00 Hgb 13.2 gm/dL (12-16) 01/19/19 12:00 Hct 39.6 % (41.0-60) L 01/19/19 12:00 MCV 85.2 fl (81-100) 01/19/19 12:00 MCH 28.4 pg (27.0-31.0) 01/19/19 12:00 MCHC Differential 33.4 pg (28.0-36.0) 01/19/19 12:00 RDW 12.6 % (11.5-20.0) 01/19/19 12:00 Plt Count 395 Th/cmm (150-400) 01/19/19 12:00 MPV 8.2 fl 01/19/19 12:00 Neutrophils % 59.9 % (40.0-80.0) 01/19/19 12:00 Lymphocytes % 32.9 % (20.0-50.0) 01/19/19 12:00 Monocytes % 4.5 % (2.0-10.0) 01/19/19 12:00 Eosinophils % 2.0 % (0.0-5.0) 01/19/19 12:00 Basophils % 0.7 % (0.0-2.0) 01/19/19 12:00 PT 10.0 SECONDS (9.5-11.5) 01/16/19 21:04 INR 0.96 (0.5-1.4) 01/16/19 21:04 PTT (Actin FS) 25.2 SECONDS (26.0-38.0) L 01/16/19 21:04 Sodium 132 mEq/L (136-145) L 01/19/19 12:00 Potassium 3.6 mEq/L (3.5-5.1) 01/19/19 12:00 Chloride 99 mEq/L (98-107) 01/19/19 12:00 Carbon Dioxide 23.8 mEq/L (21.0-31.0) 01/19/19 12:00 Anion Gap 12.8 (7.0-16.0) 01/19/19 12:00 BUN 9 mg/dL (7-25) 01/19/19 12:00 Creatinine 0.6 mg/dL (0.6-1.2) 01/19/19 12:00 Est GFR ( Amer) > 60.0 ml/min (>90) 01/19/19 12:00 Est GFR (Non-Af Amer) > 60.0 ml/min 01/19/19 12:00 BUN/Creatinine Ratio 15.0 01/19/19 12:00 Glucose 174 mg/dL (70-105) H 01/19/19 12:00 POC Glucose 148 MG/DL (70 - 105) H 01/28/19 20:16 Calcium 9.5 mg/dL (8.6-10.3) 01/19/19 12:00 Magnesium 1.9 mg/dL (1.9-2.7) 01/15/19 19:30 Total Bilirubin 0.4 mg/dL (0.3-1.0) 01/16/19 21:04 AST 21 U/L (13-39) 01/16/19 21:04 ALT 25 U/L (7-52) 01/16/19 21:04 Alkaline Phosphatase 69 U/L (34-104) 01/16/19 21:04 Total Protein 6.3 gm/dL (6.0-8.3) 01/16/19 21:04 Albumin 3.5 gm/dL (3.7-5.3) L 01/16/19 21:04 Globulin 2.8 gm/dL 01/16/19 21:04 Albumin/Globulin Ratio 1.3 (1.0-1.8) 01/16/19 21:04 Urine Source RANDOM 01/15/19 20:30 Urine Color YELLOW 01/15/19 20:30 Urine Clarity CLEAR (CLEAR) 01/15/19 20:30 Urine pH 6.0 (4.6 - 8.0) 01/15/19 20:30 Ur Specific [place] 1.020 (1.005-1.030) 01/15/19 20:30 Urine Protein NEGATIVE mg/dL (NEGATIVE) 01/15/19 20:30 Urine Glucose (UA) >=1000 mg/dL (NEGATIVE) H 01/15/19 20:30 Urine Ketones NEGATIVE mg/dL (NEGATIVE) 01/15/19 20:30 Urine Blood NEGATIVE (NEGATIVE) 01/15/19 20:30 Urine Nitrate NEGATIVE (NEGATIVE) 01/15/19 20:30 Urine Bilirubin NEGATIVE (NEGATIVE) 01/15/19 20:30 Urine Urobilinogen 1.0 E.U./dL (0.2 - 1.0) 01/15/19 20:30 Ur Leukocyte Esterase NEGATIVE (NEGATIVE) 01/15/19 20:30 Urine RBC 0-2 /hpf (0-5) 01/15/19 20:30 Urine WBC 0-2 /hpf (0-5) 01/15/19 20:30 Ur Epithelial Cells FEW /lpf (FEW) 01/15/19 20:30 Urine Bacteria FEW /hpf (NONE SEEN) 01/15/19 20:30 Vancomycin Trough 10.4 ug/mL (5-10) H 01/19/19 12:00 - Physical Exam Vitals and I&O: Vital Signs Temp 97.8 F 01/28/19 16:00 Pulse 80 01/28/19 16:00 Resp 18 01/28/19 20:00 BP 109/57 01/28/19 16:00 Pulse Ox 97 01/28/19 16:00 Intake & Output 01/28/19 01/28/19 01/29/19 06:59 18:59 06:59 Intake Total 400 Balance 400 Weight (lbs) 158.757 kg 158.757 kg Intake: Oral 400 Other: # Voids 2 3 # Bowel Movements 1 1 Weight Source Bedscale Bedscale Active Medications: Current Medications Acetaminophen (Tylenol Extra Strength) 500 mg PO Q4H PRN PRN Reason: Pain (Moderate) Stop: 03/16/19 22:38 Last Admin: 01/28/19 10:24 Dose: 500 mg Ceftriaxone Sodium 2 gm/ (Sodium Chloride) 100 mls @ 100 mls/hr IV Q24H [facility] Stop: 03/19/19 15:44 Last Admin: 01/28/19 15:02 Dose: 100 mls/hr Insulin Human Lispro (Humalog Insulin Sliding Scale) 0 units SUBQ ACHS [facility]; Protocol Stop: 03/17/19 07:29 Last Admin: 01/28/19 20:18 Dose: Not Given Lactobacillus Rhamnosus (Culturelle 15b) 1 each PO BID [facility] Stop: 03/19/19 16:59 Last Admin: 01/28/19 16:11 Dose: 1 each Levothyroxine Sodium (Synthroid) 0.088 mg PO QDAC [facility] Stop: 03/17/19 07:29 Last Admin: 01/28/19 06:32 Dose: 0.088 mg Loratadine (Claritin) 10 mg PO DAILY [facility] Stop: 03/17/19 08:59 Last Admin: 01/28/19 08:03 Dose: 10 mg Metformin HCl (Glucophage) 500 mg PO BID [facility] Stop: 03/16/19 21:29 Last Admin: 01/28/19 16:11 Dose: 500 mg Miscellaneous (Vte Chemical Prophylaxis Screen/ Admission) 1 ea PRN PRN PRN Reason: PROTOCOL Stop: 03/17/19 10:20 Miscellaneous (Probiotic Screen) 1 ea PRN PRN PRN Reason: PROTOCOL Stop: 03/17/19 15:16 Pantoprazole Sodium (Protonix) 40 mg PO QDAC [facility] Stop: 03/17/19 07:29 Last Admin: 01/28/19 06:32 Dose: 40 mg Cardiovascular: Regular rate Lungs: Clear to auscultation Skin: Other (ABD wall erythema with some discharge) - Procedures Procedures: Procedures Procedure Code Date EXCISION OF ESOPHAGOGASTRIC JUNCTION, ENDO, DIAGN [id number] 02/24/18 EXCISION OF STOMACH, PYLORUS, ENDO, DIAGN [id number] 02/24/18 Assessment/Plan - Assessment Assessment: ABD WALL CELLULITS DM II Diarrhea MORBID OBESITY - Plan Plan: Continue IV Antibiotics Local wound care SNIF DC plan Patient and family was updated on plan of care they are aware Plan of care dw nursing staff Nutritional Asmnt/Malnutr-PDOC - Dietary Evaluation Malnutrition Findings (Please click <Entered> for more info): Nutritional Asmnt/Malnutrition Start: 01/16/19 15: 50 Text: Status: Complete Freq: Protocol: Document 01/16/19 15:50 CRISTIAN (Rec: 01/16/19 15:55 CRISTIAN [email or web address]) Nutritional Asmnt/Malnutrition Patient General Information Nutritional Screening High Risk Consult Diagnosis Cellulitis Lower Abdominal Pertinent Medical Hx/Surgical Hx HTN, DM Subjective Information Consult: Diabetic, Blood sugar during admission - 316 Pt is a 43-year-old female admitted on 01/15 c/o abdominal wall redness and pain x3 days. Spoke to AARON Collier, Pt ate 100 % at breakfast and lunch today . Pt was sleeping at time of visit. Will follow up with Pt as high risk to provide nutrition education for glucose control if needed. May want to consider calories restricted diet d/t BMI 62.73 (Morbidly Obese). HT: 52 WT: 343 LB (155.9 kg) ADJ BW: 92.42 kg BMI: 62.73 (Morbidly Obese) GI: Large, Round, Swelling, Red, Warm to Touch BM: Not noted I/O: 100/Not Noted Skin: Warm, Dry, Tight, Abscess on RT Lower Abdomen Carl: 18 [facility] Estimated Energy Needs: (Obese III, ADJ BW) 4828-3307 kcals (20-25 kcals/ kg) 74-83g Pro (0.8-0.9 g/kg) 7435-0657 ml (25-30 ml/kg) Current Diet Order/ Nutrition Support [facility] [place] Pertinent Medications INS-SS, Synthroid, Glucophage, Protonix Pertinent Labs 01/15: Hgb/Hct 12.8/37.5, Na 135 , Potass 3.2, Glucose 316, POC Glucose (last 24 hours) 251, 210 Nutritional Hx/Data Height 1.57 m Height (Calculated Centimeters) 157.5 Current Weight (lbs) 155.582 kg Weight (Calculated Kilograms) 155.6 Weight (Calculated Grams) 669862.2 [place] Body Weight 50.1 kg % [place] Body Weight 311 Body Mass Index (BMI) 62.7 Weight Status Morbidly Obese GI Symptoms GI Symptoms None Last BM Not noted Skin Integrity/Comment: Warm, Dry, Tight, Abscess on RT Lower Abdomen Carl: 18 Current %PO Good (75-100%) Estimated Nutritional Goals BEE in Kcals: Adj wt of IBW Calories/Kcals/Kg 20-25 Kcals Calculated 2259-3870 Protein: Adj wt of IBW Protein g/k.8-0.9 Protein Calculated 74-83 Fluid: ml 3823-3386 ml (25-30 ml/kg) Nutritional Problem 1. Problem Problem Altered nutrition related labs Etiology r/t endocrine dysfunction Signs/Symptoms: aeb lab result Glucose 316, POC Glucose (last 24 hours) 251, 210 Intervention/Recommendation Comments 1.Continue with [facility] [place] diet as ordered. 2.Consider calories restricted diet. Expected Outcomes/Goals Expected Outcomes/Goals 1.PO intake to meet 75% of nutritional needs. 2.Monitor PO intake, wt, skin integrity, and nutrition related labs to trend WNL. 3.F/U as high risk in 2-3 days , 01/18-01/19
[2019-01-29] MEDS: Pantoprazole 40 mg EC Tab PO SCH (06:36)
[2019-01-29] MEDS: Levothyroxine 0.088 Mg Tab PO SCH (06:36)
[2019-01-29] MEDS: INSULIN LISPRO SLIDING SCALE 100 UNITS/ML UNIT SUBQ SCH ×2 (08:29→12:11)
[2019-01-29] MEDS: Lactobacillus Rhamnosus GG 15 Billion CFU CAP.SPRINK PO SCH (08:29)
--- NOTE | 2019-01-29 12:06 | Infectious Disease Prog Note ---
Infectious Disease Subjective - Review of Systems Service Date: 01/29/19 Subjective: There is no new change, no fever. wound has closed. Infectious Disease Objective - Results Result Diagrams: 01/19/19 12:00 01/19/19 12:00 Recent Labs: Laboratory Last Values WBC 9.0 Th/cmm (4.8-10.8) 01/19/19 12:00 RBC 4.65 Mil/cmm (3.80-5.10) 01/19/19 12:00 Hgb 13.2 gm/dL (12-16) 01/19/19 12:00 Hct 39.6 % (41.0-60) L 01/19/19 12:00 MCV 85.2 fl (81-100) 01/19/19 12:00 MCH 28.4 pg (27.0-31.0) 01/19/19 12:00 MCHC Differential 33.4 pg (28.0-36.0) 01/19/19 12:00 RDW 12.6 % (11.5-20.0) 01/19/19 12:00 Plt Count 395 Th/cmm (150-400) 01/19/19 12:00 MPV 8.2 fl 01/19/19 12:00 Neutrophils % 59.9 % (40.0-80.0) 01/19/19 12:00 Lymphocytes % 32.9 % (20.0-50.0) 01/19/19 12:00 Monocytes % 4.5 % (2.0-10.0) 01/19/19 12:00 Eosinophils % 2.0 % (0.0-5.0) 01/19/19 12:00 Basophils % 0.7 % (0.0-2.0) 01/19/19 12:00 PT 10.0 SECONDS (9.5-11.5) 01/16/19 21:04 INR 0.96 (0.5-1.4) 01/16/19 21:04 PTT (Actin FS) 25.2 SECONDS (26.0-38.0) L 01/16/19 21:04 Sodium 132 mEq/L (136-145) L 01/19/19 12:00 Potassium 3.6 mEq/L (3.5-5.1) 01/19/19 12:00 Chloride 99 mEq/L (98-107) 01/19/19 12:00 Carbon Dioxide 23.8 mEq/L (21.0-31.0) 01/19/19 12:00 Anion Gap 12.8 (7.0-16.0) 01/19/19 12:00 BUN 9 mg/dL (7-25) 01/19/19 12:00 Creatinine 0.6 mg/dL (0.6-1.2) 01/19/19 12:00 Est GFR ( Amer) > 60.0 ml/min (>90) 01/19/19 12:00 Est GFR (Non-Af Amer) > 60.0 ml/min 01/19/19 12:00 BUN/Creatinine Ratio 15.0 01/19/19 12:00 Glucose 174 mg/dL (70-105) H 01/19/19 12:00 POC Glucose 148 MG/DL (70 - 105) H 01/28/19 20:16 Calcium 9.5 mg/dL (8.6-10.3) 01/19/19 12:00 Magnesium 1.9 mg/dL (1.9-2.7) 01/15/19 19:30 Total Bilirubin 0.4 mg/dL (0.3-1.0) 01/16/19 21:04 AST 21 U/L (13-39) 01/16/19 21:04 ALT 25 U/L (7-52) 01/16/19 21:04 Alkaline Phosphatase 69 U/L (34-104) 01/16/19 21:04 Total Protein 6.3 gm/dL (6.0-8.3) 01/16/19 21:04 Albumin 3.5 gm/dL (3.7-5.3) L 01/16/19 21:04 Globulin 2.8 gm/dL 01/16/19 21:04 Albumin/Globulin Ratio 1.3 (1.0-1.8) 01/16/19 21:04 Urine Source RANDOM 01/15/19 20:30 Urine Color YELLOW 01/15/19 20:30 Urine Clarity CLEAR (CLEAR) 01/15/19 20:30 Urine pH 6.0 (4.6 - 8.0) 01/15/19 20:30 Ur Specific [place] 1.020 (1.005-1.030) 01/15/19 20:30 Urine Protein NEGATIVE mg/dL (NEGATIVE) 01/15/19 20:30 Urine Glucose (UA) >=1000 mg/dL (NEGATIVE) H 01/15/19 20:30 Urine Ketones NEGATIVE mg/dL (NEGATIVE) 01/15/19 20:30 Urine Blood NEGATIVE (NEGATIVE) 01/15/19 20:30 Urine Nitrate NEGATIVE (NEGATIVE) 01/15/19 20:30 Urine Bilirubin NEGATIVE (NEGATIVE) 01/15/19 20:30 Urine Urobilinogen 1.0 E.U./dL (0.2 - 1.0) 01/15/19 20:30 Ur Leukocyte Esterase NEGATIVE (NEGATIVE) 01/15/19 20:30 Urine RBC 0-2 /hpf (0-5) 01/15/19 20:30 Urine WBC 0-2 /hpf (0-5) 01/15/19 20:30 Ur Epithelial Cells FEW /lpf (FEW) 01/15/19 20:30 Urine Bacteria FEW /hpf (NONE SEEN) 01/15/19 20:30 Vancomycin Trough 10.4 ug/mL (5-10) H 01/19/19 12:00 - Physical Exam Vitals and I&O: Vital Signs Temp 96.9 F 01/29/19 04:00 Pulse 70 01/29/19 04:00 Resp 18 01/29/19 08:00 BP 109/54 01/29/19 04:00 Pulse Ox 96 01/29/19 04:00 Intake & Output 01/28/19 01/29/19 01/29/19 18:59 06:59 18:59 Intake Total 400 250 Balance 400 250 Weight (lbs) 158.757 kg 158.757 kg Intake: Oral 400 250 Other: # Voids 3 1 # Bowel Movements 1 Weight Source Bedscale Bedscale Active Medications: Current Medications Acetaminophen (Tylenol Extra Strength) 500 mg PO Q4H PRN PRN Reason: Pain (Moderate) Stop: 03/16/19 22:38 Last Admin: 01/28/19 10:24 Dose: 500 mg Ceftriaxone Sodium 2 gm/ (Sodium Chloride) 100 mls @ 100 mls/hr IV Q24H [facility] Stop: 03/19/19 15:44 Last Admin: 01/28/19 15:02 Dose: 100 mls/hr Insulin Human Lispro (Humalog Insulin Sliding Scale) 0 units SUBQ ACHS [facility]; Protocol Stop: 03/17/19 07:29 Last Admin: 01/29/19 08:29 Dose: 3 units Lactobacillus Rhamnosus (Culturelle 15b) 1 each PO BID [facility] Stop: 03/19/19 16:59 Last Admin: 01/29/19 08:29 Dose: 1 each Levothyroxine Sodium (Synthroid) 0.088 mg PO QDAC [facility] Stop: 03/17/19 07:29 Last Admin: 01/29/19 06:36 Dose: 0.088 mg Loratadine (Claritin) 10 mg PO DAILY [facility] Stop: 03/17/19 08:59 Last Admin: 01/29/19 08:29 Dose: 10 mg Metformin HCl (Glucophage) 500 mg PO BID [facility] Stop: 03/16/19 21:29 Last Admin: 01/29/19 08:29 Dose: 500 mg Miscellaneous (Vte Chemical Prophylaxis Screen/ Admission) 1 [facility] PRN PRN PRN Reason: PROTOCOL Stop: 03/17/19 10:20 Miscellaneous (Probiotic Screen) 1 [facility] PRN PRN PRN Reason: PROTOCOL Stop: 03/17/19 15:16 Pantoprazole Sodium (Protonix) 40 mg PO QDAC LUTHER Stop: 03/17/19 07:29 Last Admin: 01/29/19 06:36 Dose: 40 mg General: no acute distress, other (obese) HEENT: atraumatic, normocephalic, PERRLA, EOMI, moist mucous membrane Neck: supple, no thyromegaly, no lymphadenopathy, no rigid Cardiovascular: S1S2, regular Lungs: clear to auscultation bilaterally, clear to percussion Abdomen: soft, other (The RLQ swelling and redness has improved significantly. Wound is superficial now.), no tender, no distended, no mass, no hepatomegaly Extremities: no cyanosis, no clubbing, no edema Neurological: awake, alert, oriented - Procedures Procedures: Procedures Procedure Code Date EXCISION OF ESOPHAGOGASTRIC JUNCTION, ENDO, DIAGN [id number] 02/24/18 EXCISION OF STOMACH, PYLORUS, ENDO, DIAGN [id number] 02/24/18 Infectious Disease Assmt/Plan - Assessment Assessment: 1. Right lower quadrant abdominal abscess with cellulitis. 2. Morbid obesity with a BMI of 63. 3. Diabetes mellitus type 2. 4. Hypertension. 5. Suspect sleep apnea. - Plan Plan: Continue rocephin for two more weeks. may need SNF placement, preferred over HH with IV antibiotic at home. Wound care. Nutritional Asmnt/Malnutr-PDOC - Dietary Evaluation Malnutrition Findings (Please click <Entered> for more info): Nutritional Asmnt/Malnutrition Start: 01/16/19 15: 50 Text: Status: Complete Freq: Protocol: Document 01/16/19 15:50 CHANTELLREBECCA (Rec: 01/16/19 15:55 CRISTIAN ESTRADA-FN) Nutritional Asmnt/Malnutrition Patient General Information Nutritional Screening High Risk Consult Diagnosis Cellulitis Lower Abdominal Pertinent Medical Hx/Surgical Hx HTN, DM Subjective Information Consult: Diabetic, Blood sugar during admission - 316 Pt is a 43-year-old female admitted on 01/15 c/o abdominal wall redness and pain x3 days. Spoke to AARON Collier, Pt ate 100 % at breakfast and lunch today . Pt was sleeping at time of visit. Will follow up with Pt as high risk to provide nutrition education for glucose control if needed. May want to consider calories restricted diet d/t BMI 62.73 (Morbidly Obese). HT: 52 WT: 343 LB (155.9 kg) ADJ BW: 92.42 kg BMI: 62.73 (Morbidly Obese) GI: Large, Round, Swelling, Red, Warm to Touch BM: Not noted I/O: 100/Not Noted Skin: Warm, Dry, Tight, Abscess on RT Lower Abdomen Carl: 18 Diet Order: [facility] Estimated Energy Needs: (Obese III, ADJ BW) 0962-3454 kcals (20-25 kcals/ kg) 74-83g Pro (0.8-0.9 g/kg) 2058-4643 ml (25-30 ml/kg) Current Diet Order/ Nutrition Support [facility] Pertinent Medications INS-SS, Synthroid, Glucophage, Protonix Pertinent Labs 01/15: Hgb/Hct 12.8/37.5, Na 135 , Potass 3.2, Glucose 316, POC Glucose (last 24 hours) 251, 210 Nutritional Hx/Data Height 1.57 m Height (Calculated Centimeters) 157.5 Current Weight (lbs) 155.582 kg Weight (Calculated Kilograms) 155.6 Weight (Calculated Grams) 028198.2 [place] Body Weight 50.1 kg % [place] Body Weight 311 Body Mass Index (BMI) 62.7 Weight Status Morbidly Obese GI Symptoms GI Symptoms None Last BM Not noted Skin Integrity/Comment: Warm, Dry, Tight, Abscess on RT Lower Abdomen Carl: 18 Current %PO Good (75-100%) Estimated Nutritional Goals BEE in Kcals: Adj wt of IBW Calories/Kcals/Kg 20-25 Kcals Calculated 0177-1410 Protein: Adj wt of IBW Protein g/k.8-0.9 Protein Calculated 74-83 Fluid: ml 7165-1807 ml (25-30 ml/kg) Nutritional Problem 1. Problem Problem Altered nutrition related labs Etiology r/t endocrine dysfunction Signs/Symptoms: aeb lab result Glucose 316, POC Glucose (last 24 hours) 251, 210 Intervention/Recommendation Comments 1.Continue with [facility] diet as ordered. 2.Consider calories restricted diet. Expected Outcomes/Goals Expected Outcomes/Goals 1.PO intake to meet 75% of nutritional needs. 2.Monitor PO intake, wt, skin integrity, and nutrition related labs to trend WNL. 3.F/U as high risk in 2-3 days , 01/18-01/19
[2019-01-29] MEDS: cefTRIAXone 2 GM in Sodium Chloride 0.9% 100 ML IV SCH (15:21)
== END 2019-01-29 16:43 | disposition home or self-care (01) | DRG 383 ==
LOC: ER 18:31 → MSI 21:00
PROVIDERS: ADMIT Family Medicine; ATTEND Family Medicine
DX: L02.211 Cutaneous abscess of abdominal wall (principal); E11.65 Type 2 diabetes mellitus with hyperglycemia; E03.9 Hypothyroidism, unspecified; L03.311 Cellulitis of abdominal wall; I10 Essential (primary) hypertension; E66.01 Morbid (severe) obesity due to excess calories; Z68.43 Body mass index [BMI] 50.0-59.9, adult; R19.7 Diarrhea, unspecified
CPT/HCPCS: 36415-UA; 76700-TC; 80048-TC; 80053-TC; 80202-TC; 81001-TC; 82948-90; 83036-90; 83735-TC; 85025-TC; 85610-TC; 85730-TC; 87070-90; 87075-90; 87205-90; J0696; J1644; J3370; J7030; J7040; Z7610

== ENCOUNTER 2019-01-29 21:31 | Emergency (ER) | payer MEDICAID ==
--- NOTE | 2019-01-29 22:05 | ED Physician Chart ---
ED Chief Complaint/HPI - Patient Information Date Seen:: 01/29/19 Time Seen:: 21:50 Chief Complaint:: abdominal pain History of Present Illness:: Patient was admitted here for approximately 2 weeks for an abdominal wall abscess. She was discharged about 8 hours ago. She has pain at the site of the abscess. Allergies:: Allergies Allergy/AdvReac Type Severity Reaction Status Date / Time No Known Allergies Allergy Verified 03/18/16 08:09 Vitals:: Vital Signs - 8 hr 01/29/19 21:33 Temp 96.9 F HR 102 RR 19 BP 137/66 O2 Sat % 99 Historian:: Patient, Family Member Review:: Nurse's Note Reviewed ED Review of Systems - Review of Systems General/Constitutional: No fever, No chills Skin: Skin lesions Head: No headache Eyes: No loss of vision ENT: No earache Neck: No neck pain Cardio Vascular: No chest pain, No palpitations Pulmonary: No SOB GI: No nausea, No vomiting, No diarrhea, Pain Musculoskeletal: No bone or joint pain Endocrine: No polyuria Psychiatric: No prior psych history Hematopoietic: No bruising Allergic/Immuno: No urticaria Neurological: No syncope ED Past Medical History - Past Medical History Past Medical History: HTN, DM, Dyslipidemia, Other (hyperlipidemia) Family History: Diabetes [place] Social History: Non Smoker, No Alcohol Surgical History: None Medication: Reviewed Family Medical History - Family Member Mother History Unknown: Yes Ethnicity: Living Status: Unknown Hx Family Cancer: (UNKNOWN) Hx Family Coronary Artery Disease: (UNKNOWN) Hx Family Congestive Heart Failure: (UNKNOWN) Hx Family Hypertension: (UNKNOWN) Hx Family Stroke: (UNKNOWN) Hx Family Diabetes: Yes Hx Family Seizures: (UNKNOWN) Hx Family Dementia: (UNKNOWN) Hx Family AIDS: (UNKNOWN) Hx Family COPD: (UNKNOWN) Hx Family Hepatitis: (UNKNOWN) Hx Family Psychiatric Problems: (UNKNOWN) Hx Family Tuberculosis: (UNKNOWN) ED Physical Exam - Physical Examination General/Constitutional: Well-developed, well-nourished, Alert, No distress Head: Atraumatic Eyes: Lids, conjuctiva normal, PERRL Other Skin comments:: about 15 centimeter in diameter area of redness with one half centimeter central draining area right lower quadrant abdomen ENMT: External ears, nose nl Neck: No nuchal rigidity Respiratory: Clear to Auscultation Cardio Vascular: RRR, No murmur, gallop, rubs ED Assessment - Assessment General Assessment: Patient is given Toradol 30 mg intramuscularly for her pain and prescribed ibuprofen 400 mg #30 to take 1 4 times a day ED Septic Shock - . Is Septic Shock (SBP<90, OR Lactate>4 mmol\L) present?: No - <6hrs of presentation: Vital Signs: Vital Signs - 8 hr 01/29/19 21:33 Temp 96.9 F HR 102 RR 19 BP 137/66 O2 Sat % 99 ED Reassessment (Disposition) - Reassessment Reassessment Condition:: Unchanged - Diagnosis Diagnosis:: Abdominal wall abscess - Aftercare/Follow up Instructions Aftercare/Follow-Up Instructions:: Refer to Discharge Instructions Medication Prescribed:: Ibuprofen 400 mg #30 to take 1 4 times a day as necessary for pain - Patient Disposition Discharge/Transfer:: Home Condition at Disposition:: Stable, Unchanged
== END 2019-01-29 22:31 | disposition home or self-care (01) ==
LOC: ER 21:31
DX: L02.211 Cutaneous abscess of abdominal wall (principal); I10 Essential (primary) hypertension; E11.9 Type 2 diabetes mellitus without complications; E78.5 Hyperlipidemia, unspecified
CPT/HCPCS: 99283; 96372; J1885; Z7502